=== PATIENT | male | born 1970 | race Two or more races ===

== ENCOUNTER 2018-05-05 08:40 | Inpatient (IN) | payer BC ==
--- NOTE | 2018-05-05 08:48 | PDOC ---
History of Present Illness - General Chief Complaint: Wound Stated Complaint: WOUND Time Seen by Provider: 05/05/18 08:48 History Source: Patient, Spouse Exam Limitations: No Limitations - History of Present Illness Initial Comments: 47 y/o male presenting to [facility] ER via private car complaining of worsening pain , swelling, and redness of right foot. PMH significant for diabetes and chronic wound w/o osteo to R foot. Symptoms began on Tuesday (01 May 2018) after outpatient treatment by [facility] media buyer. Was prescribed Augmentin with concern for possible infection. Developed nausea, vomiting, and diarrhea. Returned to [facility] on Tuesday (03 May 2018) after symptoms worsened and pt developed fever to 102 (measured orally at home). Abx therapy was transition to Cephalexin 500 (QID). Symptoms have continued to worsen with localized spreading of swelling and redness. Pt reports noticing weeping from toes. Denies trauma or puncture to R foot, syncope, streaking, or urinary symptoms. Endorses headache, episodes of lightheadedness without syncope, nausea, vomiting , diarrhea, decreased appetite. PCP: Dr. Naidu at [facility] Geotechnical Operating Engineer: Dr. Rosas at [facility] Past History - Past Medical History Allergies/Adverse Reactions: Allergies Allergy/AdvReac Type Severity Reaction Status Date / Time No Known Allergies Allergy Verified 05/05/18 08:42 Home Medications: Ambulatory Orders Metoprolol Succinate [Toprol Xl -] 100 mg PO DAILY 10/25/14 Atorvastatin Calcium 80 mg PO HS 05/05/18 Cephalexin [Keflex] 500 mg PO QID 05/05/18 Hydrochlorothiazide [Hctz -] 25 mg PO DAILY 05/05/18 Nifedipine [Adalat cc] 60 mg PO DAILY 05/05/18 Olmesartan Medoxomil 40 mg PO DAILY 05/05/18 metFORMIN HCL [Metformin HCl] 1,000 mg PO BID 05/05/18 COPD: No Diabetes: Yes (insulin and po) HTN: Yes Hypercholesterolemia: Yes Comment:: - Diabetes - CKD of unknown staging - HTN - HCL - CAD - Surgical History Appendectomy: Yes Comments:: Left shoulder repair, Oct 2017. Denies recent hospitalizations. - Immunization History Immunization Up to Date: (flu 2013-) - Suicide/Smoking/Psychosocial Hx Smoking History: Never smoked Hx Alcohol Use: No Substance Use Type: None Review of Systems - Review of Systems Able to Perform ROS?: Yes Is the patient limited Belgian proficient: No Constitutional: Yes: Chills, Diaphoresis, Fever, Loss of Appetite, Weakness HEENTM: No: Recent change in vision, Difficulty Swallowing Respiratory: No: Shortness of Breath Cardiac (ROS): Yes: Lightheadedness. No: Chest Pain, Irregular Heart Rate, Syncope ABD/GI: Yes: Diarrhea, Nausea, Poor Appetite, Poor Fluid Intake, Vomiting, Abdominal cramping. No: Rectal Bleeding, Tarry Stools : No: Burning, Dysuria, Discharge, Frequency, Hematuria Integumentary: Yes: Erythema Neurological: Yes: Headache Endocrine: No: Increased Urine Hematologic/Lymphatic: No: Lymph Node Abnormalities *Physical Exam - Vital Signs Last Vital Signs Temp Pulse Resp BP Pulse Ox 100.2 F H 107 H 18 140/73 98 05/05/18 08:42 05/05/18 08:42 05/05/18 08:42 05/05/18 08:42 05/05/18 08:42 - Physical Exam Comments: Constitutional: Well-developed, well-nourished male in no acute distress. Found semi-fowlers in hospital bed. Alert and oriented x4. Answered all questions appropriately and completely. Speech was non-labored, non-pressured. Head: normocephalic. ENT: Sclerae white. Conjunctiva moist and not injected. Hearing grossly intact. No nasal discharge. Oral cavity and pharynx normal. No inflammation, swelling, exudate, or lesions. Teeth and gingiva in good general condition Neck: Supple, trachea is midline. No JVD. Cardiovascular:Tachycardic rate with regular rhythm. No murmur, rubs, clicks, or gallops. Peripheral pulses: Radial pulses full Respiratory: Equal chest rise and fall. Clear to auscultation bilaterally. No stridor, no wheezing, no rhonchi. Gastrointestinal: abdomen is soft, non-tender, non-distended. Neuro: Alert and oriented. Moving all four extremities spontaneously. Psych: Affect: appropriate. Mood: normal. Ext: R foot: dorsum is erythematous, edematous, hot to touch, and subjectively tender to palpation. Edema continues to just below the knee. Breakdown of skin in all webbing spaces without obvious ulceration or invasion to bone. L foot: grossly intact. Dry, flaking skin noted on both lower extremities. ED Treatment Course - LABORATORY CBC & Chemistry Diagram: 05/05/18 09:20 05/05/18 09:56 Medical Decision Making - Medical Decision Making 47 y/o diabetic male complaining of one week of worsening pain, erythema, edema , and weeping of right foot. Reported fever at home to 102. H/o wound to right foot; followed by podiatry, last seen on Tuesday. Trailled outpatient augmentin ( D/Chencho on Tuesday at day 2) and cephalexin (day 3 today) without improvement or slowing of symptoms. Temp 100.2 orally on arrival. Tachycardic with mild hypertension. PE revealing of erythema, edema, pain, and temperature to right foot dorsum extending to ankle. No streaking. Concern for localized cellulitis. Considering osteomyelitis despite obvious communication to ostium given history of reported chronic infection of foot. Will obtain plain film radiographs of extremity to further evaluate. Low suspicion for septicemia but will obtain blood cultures given fever and tachycardia. Will obtain CBC, CMP, coags, troponin, and lactate. Initied sepsis order set. Initiated broadspectrum abx therapy with Vanc and Zosyn with concern for diabetic foot wound. NS, Tylenol, and zofran for symptom relief. Reviewed nursing notes and prior visit documentation. 09:50 PT/INR, Troponin, and CMP hemolyzed. Reordered. 10:12 Leukocytosis to 17.2. Lactate not elevated. Will cancel repeat. Noted total calcium of 7.3. Corrected for hypoalbuminemia to normal range. 11:09 Telephone consult with PCP, Dr. Naidu at [facility]. Reports pts last creatine was 1.6 in (03 May 2018), and has been trending up from 1.4 in January 2018 BUN has remained normal. Last A1C was 9.2 in January 2018. Stated she has experienced trouble with patient compliance without medical therapy. Was unable to give details on both previous clinic visits this week as the notes were not completed. Low suspicion for DANILO given previous labs. CXR is unremarkable for acute cardiopulmonary process. Three view plain films of R foot revealing of swelling, calcaneal spurring, and angulated toes without blastic or lytic lesions. Low suspicion for osteomyelitis. Will admit pt with concern for diabetic foot wound likely cellulitis. Pt meets Sepsis criteria with WBC 17, tachycardia, and suspected source of infection. Microblog sent to [facility] at 11:09. Telephone consult with admitting team. Agree to accept pt under Dr. Irwin. Discussed results and plan for admission with patient and patients . Both expressed verbal understanding and agreement. *DC/Admit/Observation/Transfer Diagnosis at time of Disposition: Diabetic foot infection, Cellulitis in diabetic foot, Tachycardia determined by examination of pulse Sepsis Qualifiers: Sepsis type: sepsis due to unspecified organism Qualified Code(s): A41.9 - Sepsis, unspecified organism - Discharge Dispostion Condition at time of disposition: Fair - Referrals Referrals: Joseline Naidu MD [Primary Care Provider] - - Patient Instructions - Post Discharge Activity
[2018-05-05 08:53] VITALS: BMI 42.4
[2018-05-05] MEDS ORDERED: VANCOMYCIN 1,500 MG in DEXTROSE 5%-WATER - 250 ML IVPB ONE ×2 (09:11→09:45)
[2018-05-05] MEDS ORDERED: PIPERACILLIN/TAZOB 4.5 GM 4.5 GM in DEXTROSE 5%-WATER 100 ML IVPB ONE (09:11)
[2018-05-05] MEDS ORDERED: PIPERACILLIN/TAZOB 4.5 GM 4.5 GM/100 ML BAG IVPB ONE (09:17)
[2018-05-05] MEDS ORDERED: ACETAMINOPHEN 1000 MG/100 ML VIAL (NON FORMULARY) IVPB ONE (09:24)
[2018-05-05] MEDS ORDERED: SODIUM CHLORIDE 0.9% 500 ML INFUS.BAG IV ONE (09:24)
[2018-05-05] MEDS ORDERED: ACETAMINOPHEN INJECTION 100 ML IVPB ONE (09:29)
[2018-05-05] MEDS ORDERED: ONDANSETRON 4 MG/2 ML VIAL IVPUSH ONE (09:29)
[2018-05-05] MEDS ORDERED: ONDANSETRON 4 MG/2 ML VIAL ONE (09:31)
[2018-05-05 09:33] LABS: BASO % 0.6 % (0-2.0); EOS % 0.1 % (0-4.5); HEMATOCRIT 31.5 % (35.4-49); HEMOGLOBIN 10.4 GM/dL (11.7-16.9); MCH 26.8 pg (25.7-33.7); MCHC 33.2 g/dl (32.0-35.9); MEAN CELL VOLUME 80.7 fl (80-96); MONO % 11.3 % (3.8-10.2); PLATELET COUNT 235 K/MM3 (134-434); RDW 13.3 % (11.9-15.9); WHITE BLOOD COUNT 17.2 K/mm3 (4.0-10.0)
--- NOTE | 2018-05-05 09:39 | PDOC ---
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 The patient states he first noticed symptoms on Tuesday after outpatient treatment with [facility] folder machine, Dr. Rosas, and was prescribed Augmentin for possible infection of the right foot. Patient states he developed vomiting, nausea and diarrhea and returned to [facility] 2 days ago for evaluation of the right foot for symptoms worsened with a fever of 102. Patient was prescribed Cephalexin 500 (QID). The patient complains symptoms have continued to worsen today with localized spreading of swelling and redness accompanied with weeping from toes. The patient denies numbness and tingling. Denies any trauma to the the right foot.The patient denies chest pain, shortness of breath, headache and dizziness. Denies dysuria, frequency, urgency and hematuria. Allergies: NKDA Past surgical history: Appendectomy Social history: No reported PCP: Joseline Naidu Documentation prepared by Clifton Jutsin, acting as medical office scheduler for Noah Parker MD. - Physicial Exam PE: 05/05/18 10:27 General Appearance: No acute distress, well nourished, well developed Head: Atraumatic Cardiac: Regular rate and rhythm, no murmurs, no rubs, no gallops Lungs: Clear to auscultation bilateral, good air movement bilaterally Abdomen: Soft, nondistended, normal bowel sounds, nontender to palpation Genitourinary: Rectal: Exam deferred Extremities: Full range of motion to all extremities, no cyanosis, clubbing, or edema Skin: +Swollen right calf, cellulitis extended to the ankle and skin break down to the right 2nd and 3rd toe with purulent discharge Neuro: AOX3; Cranial Nerves 2-12 grossly intact, Strength intact to all extremities, Sensation intact to all extremities. Psych: Normal mood, normal affect <Clifton Justin - Last Filed: 05/05/18 10:30> - Resident Resident Name: Onel Posada - ED Attending Attestation I have performed the following: I have examined & evaluated the patient, The case was reviewed & discussed with the resident, I agree w/resident's findings & plan, Exceptions are as noted - Medical Decision Making 05/05/18 15:29 Diabetic foot cellulitis. Failed outpatient therapy. Fever elevated white blood cell count. Lactic within normal limits. Patient meets sepsis criteria but not severe sepsis Patient covered with Patria given diabetes will be admitted to the hospital for further management. <Noah Parker - Last Filed: 05/05/18 15:29>
[2018-05-05] MEDS ORDERED: VANCOMYCIN 1,500 MG in DEXTROSE 5%-WATER - 500 ML IVPB ONE (09:45)
[2018-05-05 10:31] LABS: ALBUMIN 2.4 g/dl (3.4-5.0); ANION GAP 12 (8-16); BILIRUBIN,TOTAL 0.6 mg/dL (0.2-1.0); BLOOD UREA NITROGEN 17 mg/dL (7-18); CALCIUM 7.3 mg/dL (8.5-10.1); CHLORIDE 101 mmol/L (98-107); CO2 25 mmol/L (21-32); CREATININE 1.7 mg/dL (0.7-1.3); GLUCOSE,RANDOM 197 mg/dL (74-106); POTASSIUM 3.4 mmol/L (3.5-5.1); SGOT/AST 55 U/L (15-37); SGPT/ALT 48 U/L (12-78); SODIUM 138 mmol/L (136-145); TOT PROT 5.9 g/dl (6.4-8.2)
[2018-05-05 10:33] LABS: INR 1.13 (0.82-1.09); PROTHROMBIN TIME (PATIENT) 12.8 SEC (9.7-13.0)
[2018-05-05 10:35] LABS: ALK PHOS 123 U/L (45-117)
[2018-05-05 11:41] LABS: URINE APPEARANCE CLOUDY; URINE BILIRUBIN NEGATIVE (<2.0 mg/dL); URINE COLOR DKYELLOW; URINE GLUCOSE (UA) 1+ (NEGATIVE); URINE KETONE NEGATIVE (NEGATIVE); URINE LEUK ESTERASE NEGATIVE (NEGATIVE); URINE NITRITE NEGATIVE (NEGATIVE); URINE UROBILINOGEN NEGATIVE mg/dL (0.2-1.0)
[2018-05-05 11:45] LABS: URINE PROTEIN 3+ (NEGATIVE)
[2018-05-05 11:56] LABS: URIC ACID CRYSTALS RARE /hpf (NONE SEEN); YEAST MODERATE
[2018-05-05] MEDS ORDERED: POTASSIUM CHLORIDE ORAL LIQUID 20 MEQ/15 ML PO ONE (11:57)
[2018-05-05] MEDS ORDERED: POTASSIUM CHLORIDE TABS 20 MEQ TABLET.ER (FP) PO ONE (12:34)
--- NOTE | 2018-05-05 12:46 | HP ---
Admitting History and Physical - Admission Chief Complaint: R foot swelling, drainage History of Present Illness: This is a 47 year old male with pmhx of htn, hld, dm II presented to the ED R foot swelling, redness, and drainage from wound. 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 That afternoon he followed up with his cell installer who said it looked fine and prescribed augmentin if worsened. On Tuesday pt started having fevers and chills, by Tuesday pt saw his GP and switched abx to keflex. His foot was not improving and continued to have subjective fevers ~ 102 and decide to come to the ED. Currently, denies cp, sob, fever, chills, abdominal pain. History Source: Patient Limitations to Obtaining History: No Limitations - Past Medical History Cardiovascular: Yes: HTN, Hyperlipdemia Renal/: Yes: Renal Inusuff Endocrine: Yes: Diabetes Mellitus - Past Surgical History Past Surgical History: Yes: Arthrosocopy (L shoulder 3 months ago) - Smoking History Smoking history: Never smoked - Alcohol/Substance Use Hx Alcohol Use: No Home Medications - Allergies Allergies/Adverse Reactions: Allergies Allergy/AdvReac Type Severity Reaction Status Date / Time No Known Allergies Allergy Verified 05/05/18 08:42 - Home Medications Home Medications: Ambulatory Orders Metoprolol Succinate [Toprol Xl -] 100 mg PO DAILY 10/25/14 Atorvastatin Calcium 80 mg PO HS 05/05/18 Cephalexin [Keflex] 500 mg PO QID 05/05/18 Hydrochlorothiazide [Hctz -] 25 mg PO DAILY 05/05/18 Nifedipine [Adalat cc] 60 mg PO DAILY 05/05/18 Olmesartan Medoxomil 40 mg PO DAILY 05/05/18 metFORMIN HCL [Metformin HCl] 1,000 mg PO BID 05/05/18 Review of Systems - Review of Systems Constitutional: reports: Chills, Fever Eyes: reports: No Symptoms HENT: reports: No Symptoms Neck: reports: No Symptoms Cardiovascular: reports: No Symptoms Respiratory: reports: No Symptoms Gastrointestinal: reports: No Symptoms Genitourinary: reports: No Symptoms Musculoskeletal: reports: No Symptoms Integumentary: reports: Erythema (r foot), Wound Neurological: reports: No Symptoms Endocrine: reports: No Symptoms Hematology/Lymphatic: reports: No Symptoms Psychiatric: reports: No Symptoms Physical Examination Vital Signs: Vital Signs Temperature 100.2 F H 05/05/18 08:42 Pulse Rate 107 H 05/05/18 08:42 Respiratory Rate 18 05/05/18 08:42 Blood Pressure 140/73 05/05/18 08:42 O2 Sat by Pulse Oximetry (%) 98 05/05/18 08:42 Constitutional: Yes: No Distress Eyes: Yes: Conjunctiva Clear HENT: Yes: Atraumatic Cardiovascular: Yes: Regular Rate and Rhythm, S1, S2 Respiratory: Yes: Regular, CTA Bilaterally Gastrointestinal: Yes: Normal Bowel Sounds, Soft, Abdomen, Obese Renal/: Yes: WNL Musculoskeletal: Yes: WNL Extremities: Yes: Other (R food wound dorsal opening draining in between 2, 3 toe erythema, tender to palpation dorsal region, plantar callus closed) Edema: Yes Edema: RLE: 2+ Integumentary: Yes: Erythema, Skin Tear Wound/Incision: Yes: Open to air, Draining Neurological: Yes: Alert, Oriented, Cran Nerves II-XII Intact ...Motor Strength: WNL Psychiatric: Yes: Alert, Oriented Labs: CBC, BMP 05/05/18 09:20 05/05/18 09:56 Imaging - Results X-ray: Report Reviewed Problem List - Problems (1) Cellulitis in diabetic foot Code(s): E11.628 - TYPE 2 DIABETES MELLITUS WITH OTHER SKIN COMPLICATIONS; L03.119 - CELLULITIS OF UNSPECIFIED PART OF LIMB (2) Diabetic foot infection Code(s): E11.628 - TYPE 2 DIABETES MELLITUS WITH OTHER SKIN COMPLICATIONS; L08.9 - LOCAL INFECTION OF THE SKIN AND SUBCUTANEOUS TISSUE, UNSP (3) Sepsis Code(s): A41.9 - SEPSIS, UNSPECIFIED ORGANISM Qualifiers: Sepsis type: sepsis due to unspecified organism Qualified Code(s): A41.9 - Sepsis, unspecified organism Assessment/Plan Assessment: 47 year old male admitted with diabetic foot ulcer and R foot cellulitis Plan: 1. Sepsis due to R foot diabetic foot wound/ulcer - Vanco, zosyn given in ED - Continue zosyn, vanco - Culture of R foot drainage - Obtain RLE doppler r/o dvt, pt states swelling occurred before infection - ID and podiatry consulted 2. Lactic acidosis - Give 1L bolus now - Check lactic acid in 4rs 3. CKD, proteinuria - Pt recalls baseline cr 1.5, has not had a work up - Hold po antidiabetics, HCTZ - Kidney/bladder us ordered - Send urine studies, urine/extrusion press operator ratio - Renal consulted 4. DM II - Hold po meds - Start ISS, BGM, ACHS 5. HTN - Continue toprol xl 100mg daily - Continue Nifedipine 60mg daily - Continue Diovan (switched from home olmesartan) - Hold HCTZ 6. DVT ppx - Heparin sq Visit type - Emergency Visit Emergency Visit: Yes ED Registration Date: 05/05/18 Care time: The patient presented to the Emergency Department on the above date and was hospitalized for further evaluation of their emergent condition. - New Patient This patient is new to me today: Yes Date on this admission: 05/05/18 - Critical Care Critical Care patient: No Hospitalist Screening - Colonoscopy Questionnaire Colonoscopy Questionnaire: Colonoscopy Questionnaire - Patient: 50 - 75 years old and never had a screening colonoscopy: Unknown History of colon or rectal polyps, or CA: Unknown History of IBD, Crohn's disease or UC: Unknown History of abdominal radiation therapy as a child: Unknown - Relative: 1 with colon or rectal CA, or polyps at age 60 or younger: Unknown Colon or rectal CA diagnosed at age 45 or younger: Unknown Multiple relatives with colon or rectal CA: Unknown - Outcome: Screening Result: Negative Screen
[2018-05-05] MEDS ORDERED: SODIUM CHLORIDE 1,000 ML IV STA ×2 (13:57→21:37)
[2018-05-05 13:59] LABS: PLATELET ESTIMATE ADEQUATE
--- NOTE | 2018-05-05 14:16 | EKG ---
Test Reason : Blood Pressure : / mmHG Vent. Rate : 094 BPM Atrial Rate : 094 BPM P-R Int : 150 ms QRS Dur : 098 ms QT Int : 344 ms P-R-T Axes : 058 -14 041 degrees QTc Int : 430 ms NORMAL SINUS RHYTHM NORMAL ECG WHEN COMPARED WITH ECG OF 25-FEB-2008 19:52, NO SIGNIFICANT CHANGE WAS FOUND Confirmed by YIN PEPE MD ([id number]) on 05/05/2018 2:16:11 PM Referred By: Confirmed By:YIN PEPE MD
--- NOTE | 2018-05-05 14:44 | CON.NEP ---
Consult Consult Specialty:: Nephrology Reason for Consultation:: Elevated Cr - History of Present Illness Chief Complaint: right foot pain and swelling History of Present Illness: Mr. Downs is a 47 y/o male who presented to [facility] ER with complaints of right foot pain/swelling/tenderness. patient states the pain and swelling started on tuesday and he went to his PCP office who gave him augmentin, which he soon developed n/v/d. [facility] with increasing complaints and his pcp switched to cephalexin. Sitll in pain and with fevers at home he came to the hospital. In the Er labs were notable for a WBC count of 17.2 and a Cr of 1.7. Patient states that he thinks his baseline Cr is around 1.5 but has never seen a social sciences instructor. His U/A was also significant for 3+ protein and 1+glucose and 2+blood. XRAY of the foot shows swelling but no signs of fracture or subluxation, but osteomyelitis cannot be ruled pout without an MRI or bone scan. Currently patient is not having anymore GI symptoms nor is he having any trouble urinating. - History Source History Provided By: Patient - Past Medical History Cardio/Vascular: Yes: HTN, Hyperlipdemia Renal/: Yes: Renal Inusuff Endocrine: Yes: Diabetes Mellitus - Past Surgical History Past Surgical History: Yes: Arthrosocopy (L shoulder 3 months ago) - Alcohol/Substance Use Hx Alcohol Use: No - Smoking History Smoking history: Never smoked - Social History Usual Living Arrangement: With Spouse Place of : [facility] Home Medications - Allergies Allergies/Adverse Reactions: Allergies Allergy/AdvReac Type Severity Reaction Status Date / Time No Known Allergies Allergy Verified 05/05/18 08:42 - Home Medications Home Medications: Ambulatory Orders Metoprolol Succinate [Toprol Xl -] 100 mg PO DAILY 10/25/14 Atorvastatin Calcium 80 mg PO HS 05/05/18 Cephalexin [Keflex] 500 mg PO QID 05/05/18 Hydrochlorothiazide [Hctz -] 25 mg PO DAILY 05/05/18 Nifedipine [Adalat cc] 60 mg PO DAILY 05/05/18 Olmesartan Medoxomil 40 mg PO DAILY 05/05/18 metFORMIN HCL [Metformin HCl] 1,000 mg PO BID 05/05/18 Family Disease History - Family Disease History Family History: Denies Review of Systems - Review of Systems Cardiovascular: denies: Chest Pain, Palpitations Respiratory: denies: SOB Gastrointestinal: denies: Abdominal Pain, Nausea Musculoskeletal: reports: Extremity Pain (right foot pain and tenderness) Nephrology Consult - Height Height: 1.83 m - Weight Weight: 141.974 kg - BMI Body Mass Index (BMI): 42.4 - Lab Results CBC,BMP: CBC, BMP 05/05/18 09:20 05/05/18 09:56 Anion Gap: Anion Gap Anion Gap 12 (8-16) 05/05/18 09:56 - Physical Examination Vital Signs: Vital Signs Temperature 99.7 F H 05/05/18 13:01 Pulse Rate 95 H 05/05/18 13:01 Respiratory Rate 18 05/05/18 13:01 Blood Pressure 115/67 05/05/18 13:01 O2 Sat by Pulse Oximetry (%) 98 05/05/18 08:42 Constitutional: Yes: No Distress Cardiovascular: Yes: Regular Rate and Rhythm, S1, S2 Respiratory: Yes: CTA Bilaterally Gastrointestinal: Yes: Normal Bowel Sounds, Soft. No: Tenderness Musculoskeletal: Yes: Other (right foot pain/tenderness to palpation and erythematous) Edema: Yes Edema: LLE: Trace, RLE: Trace Neurological: Yes: Alert Psychiatric: Yes: Alert Problem List - Problems (1) CKD (chronic kidney disease) Code(s): N18.9 - CHRONIC KIDNEY DISEASE, UNSPECIFIED (2) Cellulitis in diabetic foot Code(s): E11.628 - TYPE 2 DIABETES MELLITUS WITH OTHER SKIN COMPLICATIONS; L03.119 - CELLULITIS OF UNSPECIFIED PART OF LIMB Assessment/Plan -labs in AM -renal workup in progress -repeat U/A -follow urine protein/cr ratio -renally dose antibiotics -attempt to get records from PCP
--- NOTE | 2018-05-05 15:38 | PN ---
Teaching Attending Note Name of Resident: Ghazal Lima (Nephrology) ATTENDING PHYSICIAN STATEMENT I saw and evaluated the patient. I reviewed the resident's note and discussed the case with the resident. I agree with the resident's findings and plan as documented. Nephrology Pt is a 47 year old male with pmhx of DM, HTN, and obesity who presents to the ER with right foot swelling and pain. He was on augmentin for an infection but developed GI symptoms. The abx were changed to cephalexin. Wound continued to worsen and he came to ER for further care. He was found to have elevated creatinine and I was called to evaluate him. He says he is awake that he has proteinuria and elevated posting clerk (last outpt was 1.5) but has not followed or seen a detective homicide squad. He does use nsaids regularly. He denies shortness of breath. PMhx ckd dm htn nkda ros foot pain family hx non contrib soc hx neg Current Medications Generic Name Dose Route Start Last Admin Trade Name Freq PRN Reason Stop Dose Admin Acetaminophen 650 mg 05/05/18 13:02 Tylenol - PO Q4H PRN PAIN LEVEL 1 - 3 Atorvastatin Calcium 80 mg 05/05/18 22:00 Lipitor - PO HS NICKI Heparin Sodium (Porcine) 5,000 unit 05/05/18 22:00 Heparin - SQ TID NICKI Piperacillin Sod/Tazobactam 50 mls @ 100 mls/hr 05/05/18 18:00 Sod 3.375 gm/ Dextrose IVPB Q8H-IV NICKI Protocol Piperacillin Sod/Tazobactam 50 mls @ 100 mls/hr 05/05/18 18:00 Sod 3.375 gm/ Dextrose IVPB 05/06/18 02:29 Q8H-IV NICKI Protocol Insulin Aspart 1 vial 05/05/18 16:30 Novolog Vial Sliding Scale - SQ ACHS NICKI Protocol Metoprolol Succinate 100 mg 05/06/18 10:00 Toprol Xl - PO DAILY NICKI Nifedipine 60 mg 05/06/18 10:00 Procardia Xl - PO DAILY NICKI Laboratory Tests 05/05/18 05/05/18 05/05/18 09:20 09:56 09:56 WBC 17.2 H Hgb 10.4 L INR 1.13 Sodium 138 Potassium 3.4 L Chloride 101 Creatinine 1.7 H Creat Clearance w eGFR 43.05 Random Glucose 197 H Hemoglobin A1c % Lactic Acid Calcium 7.3 L Albumin 2.4 L Urine Protein Urine Blood 05/05/18 05/05/18 05/05/18 10:55 12:50 13:05 WBC Hgb INR Sodium Potassium Chloride Creatinine Creat Clearance w eGFR Random Glucose Hemoglobin A1c % 10.5 H Lactic Acid 2.1 H Calcium Albumin Urine Protein 3+ H Urine Blood 2+ H Last Vital Signs Temp Pulse Resp BP Pulse Ox 99.7 F H 95 H 18 115/67 98 05/05/18 13:01 05/05/18 13:01 05/05/18 13:01 05/05/18 13:01 05/05/18 08:42 cardio s1s2 reg pulm clear GI obese, bs positive ext right leg neuro awake and alert skin erythema right foot circ pos pulses Impression 1. CKD 2. proteinuria 3. microscopic hematuria 4. HTN 5. DM 6. diabetic retinopathy 7. cataracts 8. cellulitis 9. CAD Plan - check prot to posting clerk ration - repeat labs in am - will need ckd workup and outpt follow up - restart olmestartan - monitor bp - renal dose meds - check kidney and bladder ultrasound - discussed plan at length with pt - discussed with medical team - will need better glucose control, a1c is elevated
--- NOTE | 2018-05-05 15:43 | PN ---
Progress Note (short form) - Note Progress Note: ID Consult dictated Cellulitis R foot Probable chemical burn R foot Fever/ leukocytosis R/O sepsis Diabetes/ Diabetic peripheral neuropathy Azotemia Await c/s Empiric vancomycin/ zosyn Podiatry evaluation
--- NOTE | 2018-05-05 16:44 | CONS ---
DATE OF CONSULTATION: DATE OF DICTATION: 05/05/2018 INFECTIOUS DISEASE CONSULTATION HISTORY OF PRESENT ILLNESS: The patient is a 47-year-old diabetic male who is evaluated for cellulitis of the right foot. The patient states that he was working on Tuesday, May 01, 2018, when he accidentally spilled a caustic cleaning substance on his right foot. The liquid penetrated his sneaker. Because of his diabetic peripheral neuropathy he did not feel any pain. He had presented to his physician on Tuesday after work and had a normal exam. Subsequent to that he developed worsening pain, erythema, and swelling of the right foot. He was seen in followup and was prescribed Augmentin for presumed cellulitis. Despite that, he had worsening erythema, warmth and swelling. Cephalexin was substituted. He now presents with worsening pain, swelling, and erythema of the right foot. He reports subjective fever at home. Denies any shaking chills. His course has been complicated by nausea, vomiting, and diarrhea, fever to 102 and weepage of fluid from between his toes. He presented to the emergency room where he was noted to be febrile and had an elevated white blood cell count. He has a history of diabetic foot infections in the past, was hospitalized years ago with a foot infection, denies history of osteomyelitis, no history of MRSA. PAST MEDICAL HISTORY: Positive for diabetes mellitus, hypertension, chronic kidney disease, coronary artery disease, hyperlipidemia. PAST SURGICAL HISTORY: Status post appendectomy. ALLERGIES: No known allergies. MEDICATION: Metformin, Toprol, Lipitor, Keflex, hydrochlorothiazide, Adalat. SOCIAL HISTORY: Resides at home with his significant other. Nonsmoker, nondrinker. SYSTEMS REVIEW: Neurologic: Positive for peripheral neuropathy. Cardiac: Negative for chest pain or palpitations. Respiratory: Negative for cough or sputum production. Gastrointestinal: Positive nausea, vomiting or diarrhea. Genitourinary: Negative for urinary tract symptoms. LABORATORY DATA: White count 17.2, 74 neutrophils, 2 bands, 14 lymphocytes, 11 monocytes. Hematocrit 31.5, platelet count 235, BUN 17, creatinine 1.7. AST 55, alkaline phosphatase 123. Urinalysis less than 1 white cell. Chest x-ray negative for acute infiltrate. X-ray of the right foot negative for fracture or dislocation. PHYSICAL EXAMINATION: General: He is awake and alert, seated in bed, not acutely toxic appearing. in no acute distress. Vital signs: Temperature 99.7, T-max 100.2, blood pressure 115/67, pulse 95 regular, respirations 18 per minute. HEENT: Sclerae anicteric. Cardiovascular: Heart sounds S1, S2. Lungs: Clear. Abdomen: Obese, soft, nontender. Extremities: Examination of the right lower extremity, there is diffuse swelling of the left foot. There is shiny confluence, erythema, and warmth present on the dorsal aspect of the foot from the base of the toes to the area of the ankle. He appears to have superficial ulcerations between the toes with serous drainage noted. No crepitus or fluctuance. No lymphangitic streaking. IMPRESSION: 1. Cellulitis of the right foot. 2. Probable chemical burn of the right foot. 3. Fever, leukocytosis, possible sepsis secondary to skin source. 4. Diabetes/diabetic peripheral neuropathy. 5. Azotemia. Await cultures. Empiric vancomycin and Zosyn adjusted for renal insufficiency. Podiatry evaluation. Thank you for the kind referral. KIRAN ROBLES M.D. [id number]
[2018-05-05] MEDS ORDERED: PIPERACILLIN/TAZOBACTAM 3.375 GM VIAL IVPB ONE (16:52)
[2018-05-05] MEDS ORDERED: DEXTROSE 5%-WATER - 50 ML IVPB ONE (16:53)
[2018-05-05] MEDS: ACETAMINOPHEN 325 MG TABLET (FP) PO PRN ×2 (16:55→21:49)
[2018-05-05] MEDS: INSULIN SLIDING SCALE (NOVOLOG) 1 VIAL SQ SCH ×2 (16:59→21:59)
[2018-05-05] MEDS: PIPERACILLIN/TAZOB 3.375 GM 3.375 GM in DEXTROSE 5%-WATER - 50 ML IVPB SCH (17:02)
[2018-05-05] MEDS ORDERED: PIPERACILLIN/TAZOB 3.375 GM 3.375 GM in DEXTROSE 5%-WATER - 50 ML IVPB SCH (18:00)
[2018-05-05] MEDS ORDERED: MAG HYDROX/AL HYDROX/SIMETH 30 ML UNIT-DOSE CUP PO ONE (21:45)
[2018-05-05] MEDS: HEPARIN NA (PORCINE) 5,000 UNITS/ML 1ML VIAL SQ SCH (21:51)
[2018-05-05] MEDS: ATORVASTATIN CA 80 MG TABLET (FP) PO SCH (21:52)
[2018-05-05] MEDS ORDERED: INSULIN (NOVOLOG) ASPART 100 UNITS/ML 10ML VIAL ONE (21:59)
[2018-05-05] MEDS ORDERED: INSULIN (LEVEMIR) 100 UNITS/ML UNITS SQ SCH (22:00)
[2018-05-06] MEDS ORDERED: DEXTROSE 5%-WATER - 50 ML IVPB ONE ×3 (01:24→16:45)
[2018-05-06] MEDS ORDERED: PIPERACILLIN/TAZOBACTAM 3.375 GM VIAL IVPB ONE ×3 (01:24→16:45)
[2018-05-06] MEDS: PIPERACILLIN/TAZOB 3.375 GM 3.375 GM in DEXTROSE 5%-WATER - 50 ML IVPB SCH ×3 (01:57→17:25)
[2018-05-06 05:12] LABS: URINE APPEARANCE SLCLOUDY; URINE BILIRUBIN NEGATIVE (<2.0 mg/dL); URINE COLOR YELLOW; URINE GLUCOSE (UA) 2+ (NEGATIVE); URINE KETONE NEGATIVE (NEGATIVE); URINE LEUK ESTERASE NEGATIVE (NEGATIVE); URINE NITRITE NEGATIVE (NEGATIVE); URINE UROBILINOGEN NEGATIVE mg/dL (0.2-1.0)
[2018-05-06 05:14] LABS: URINE PROTEIN 2+ (NEGATIVE)
[2018-05-06 05:15] LABS: EPI CELLS RARE /HPF (FEW); URINE MUCUS RARE
[2018-05-06] MEDS: ACETAMINOPHEN 325 MG TABLET (FP) PO PRN ×2 (06:21→14:20)
[2018-05-06] MEDS: HEPARIN NA (PORCINE) 5,000 UNITS/ML 1ML VIAL SQ SCH ×3 (06:22→21:13)
[2018-05-06] MEDS: INSULIN SLIDING SCALE (NOVOLOG) 1 VIAL SQ SCH ×4 (06:23→21:11)
[2018-05-06 07:56] LABS: BASO % 0.2 % (0-2.0); EOS % 0.2 % (0-4.5); HEMATOCRIT 26.8 % (35.4-49); HEMOGLOBIN 9.1 GM/dL (11.7-16.9); LYMPH % 13.2 % (8-40); MCH 27.3 pg (25.7-33.7); MEAN CELL VOLUME 80.1 fl (80-96); MEAN PLT VOLUME 7.7 fl (7.5-11.1); MONO % 9.7 % (3.8-10.2); NEUT % 76.7 % (42.8-82.8); PLATELET COUNT 217 K/MM3 (134-434); RBC 3.35 M/mm3 (4.00-5.60); RDW 13.3 % (11.9-15.9); WHITE BLOOD COUNT 11.4 K/mm3 (4.0-10.0)
--- NOTE | 2018-05-06 08:20 | CONSULT ---
Consult - text type - Consultation Consultation Note: Podiatry Consultation: 47 year old diabetic M presents with R foot cellulitis. 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 Patient developed increased redness/swelling subsequent to injury. Failed course of PO abx. Reports subjective chills and fevers at home. Currently low grade temp 99F. PMHx: DM, HTN, HLP Meds: noted ALL: NKMA ZEENAT: R foot: pedal pulses palpable, TG warm-warmer, CFT brisk to all toes. There is fixed cellulitis to the level of dorsal midfoot. There is some blistering noted between the second and third digits with no deep probing, maceration present, underlying granular tissue, no purulence, no fluctuance, no soft tissue crepitus R foot Xr: no bony pathology WBC: 11.4 Cultures: pending Imp: 47 year old DM M with R foot cellulitis 1. IV abx per ID 2. Recommend MRI to evaluate further pathology 3. Bactroban to 2nd interspace 4. Leg elevation 5. Will follow. Thank you for the consultation. Willi Milian DPM
[2018-05-06 08:26] LABS: ALBUMIN 2.2 g/dl (3.4-5.0); ALK PHOS 156 U/L (45-117); ANION GAP 9 (8-16); BILIRUBIN,TOTAL 0.3 mg/dL (0.2-1.0); BLOOD UREA NITROGEN 19 mg/dL (7-18); CALCIUM 7.3 mg/dL (8.5-10.1); CHLORIDE 103 mmol/L (98-107); CO2 26 mmol/L (21-32); CREATININE 2.1 mg/dL (0.7-1.3); GLUCOSE,RANDOM 261 mg/dL (74-106); MAGNESIUM 1.8 mg/dL (1.8-2.4); POTASSIUM 3.6 mmol/L (3.5-5.1); SGOT/AST 84 U/L (15-37); SGPT/ALT 85 U/L (12-78); SODIUM 138 mmol/L (136-145); TOT PROT 5.9 g/dl (6.4-8.2)
[2018-05-06] MEDS: NIFEdipine E.R 60 MG TABLET (UD) PO SCH (09:16)
--- NOTE | 2018-05-06 09:47 | PN ---
Physical Exam: SUBJECTIVE: Patient seen and examined at the bedside. OBJECTIVE: creat bumped up, will hold diovan pt uses cpap at home bgms elevated Vital Signs Period Temp Pulse Resp BP Sys/Freitas Pulse Ox Last 24 Hr 98.6 F-99.7 F 90-105 18-20 115-158/55-90 98-99 GENERAL: The patient is awake, alert, and fully oriented, in no acute distress. HEAD: Normal with no signs of trauma. EYES: PERRL, extraocular movements intact, sclera anicteric, conjunctiva clear. No ptosis. ENT: Ears normal, nares patent, oropharynx clear without exudates, moist mucous membranes. NECK: Trachea midline, full range of motion, supple. LUNGS: Breath sounds equal, clear to auscultation bilaterally HEART: Regular rate and rhythm, ABDOMEN: large obese abdomen EXTREMITIES: right foot cellulitis NEUROLOGICAL: Normal speech, gait not observed. PSYCH: Normal mood, normal affect. Laboratory Results - last 24 hr 05/05/18 05/05/18 05/05/18 09:20 09:20 09:56 WBC RBC Hgb Hct MCV MCH MCHC RDW Plt Count MPV Absolute Neuts (auto) Total Counted 100 Neutrophils % Neutrophils % (Manual) 68.0 Band Neutrophils % 2.0 Lymphocytes % Lymphocytes % (Manual) 21.0 Monocytes % Monocytes % (Manual) 9 Eosinophils % Basophils % Nucleated RBC % Platelet Estimate Adequate PT with INR 12.80 INR 1.13 Sodium Potassium Chloride Carbon Dioxide Anion Gap BUN Creatinine Creat Clearance w eGFR POC Glucometer Random Glucose Hemoglobin A1c % Lactic Acid 1.7 Calcium Phosphorus Magnesium Total Bilirubin AST ALT Alkaline Phosphatase Creatine Kinase Creatine Kinase Index CK-MB (CK-2) Troponin I Total Protein Albumin Urine Color Urine Appearance Urine pH Ur Specific [place] Urine Protein Urine Glucose (UA) Urine Ketones Urine Blood Urine Nitrite Urine Bilirubin Urine Urobilinogen Ur Leukocyte Esterase Urine WBC (Auto) Urine RBC (Auto) Ur Epithelial Cells Uric Acid Crystals Urine Mucus Urine Yeast 05/05/18 05/05/18 05/05/18 09:56 10:55 12:38 WBC RBC Hgb Hct MCV MCH MCHC RDW Plt Count MPV Absolute Neuts (auto) Total Counted Neutrophils % Neutrophils % (Manual) Band Neutrophils % Lymphocytes % Lymphocytes % (Manual) Monocytes % Monocytes % (Manual) Eosinophils % Basophils % Nucleated RBC % Platelet Estimate PT with INR INR Sodium 138 Potassium 3.4 L Chloride 101 Carbon Dioxide 25 Anion Gap 12 BUN 17 Creatinine 1.7 H Creat Clearance w eGFR 43.05 POC Glucometer [phone] Random Glucose 197 H Hemoglobin A1c % Lactic Acid Calcium 7.3 L Phosphorus Magnesium Total Bilirubin 0.6 AST 55 H ALT 48 Alkaline Phosphatase 123 H Creatine Kinase 273 Creatine Kinase Index 0.2 CK-MB (CK-2) 0.59 Troponin I < 0.02 Total Protein 5.9 L Albumin 2.4 L Urine Color Dkyellow Urine Appearance Cloudy Urine pH 5.0 Ur Specific [place] 1.026 Urine Protein 3+ H Urine Glucose (UA) 1+ H Urine Ketones Negative Urine Blood 2+ H Urine Nitrite Negative Urine Bilirubin Negative Urine Urobilinogen Negative Ur Leukocyte Esterase Negative Urine WBC (Auto) <1 Urine RBC (Auto) 33 Ur Epithelial Cells Uric Acid Crystals Rare Urine Mucus Urine Yeast Moderate 05/05/18 05/05/18 05/05/18 12:50 13:05 16:59 WBC RBC Hgb Hct MCV MCH MCHC RDW Plt Count MPV Absolute Neuts (auto) Total Counted Neutrophils % Neutrophils % (Manual) Band Neutrophils % Lymphocytes % Lymphocytes % (Manual) Monocytes % Monocytes % (Manual) Eosinophils % Basophils % Nucleated RBC % Platelet Estimate PT with INR INR Sodium Potassium Chloride Carbon Dioxide Anion Gap BUN Creatinine Creat Clearance w eGFR POC Glucometer 331 Random Glucose Hemoglobin A1c % 10.5 H Lactic Acid 2.1 H Calcium Phosphorus Magnesium Total Bilirubin AST ALT Alkaline Phosphatase Creatine Kinase Creatine Kinase Index CK-MB (CK-2) Troponin I Total Protein Albumin Urine Color Urine Appearance Urine pH Ur Specific [place] Urine Protein Urine Glucose (UA) Urine Ketones Urine Blood Urine Nitrite Urine Bilirubin Urine Urobilinogen Ur Leukocyte Esterase Urine WBC (Auto) Urine RBC (Auto) Ur Epithelial Cells Uric Acid Crystals Urine Mucus Urine Yeast 05/05/18 05/05/18 05/06/18 20:30 21:55 02:20 WBC RBC Hgb Hct MCV MCH MCHC RDW Plt Count MPV Absolute Neuts (auto) Total Counted Neutrophils % Neutrophils % (Manual) Band Neutrophils % Lymphocytes % Lymphocytes % (Manual) Monocytes % Monocytes % (Manual) Eosinophils % Basophils % Nucleated RBC % Platelet Estimate PT with INR INR Sodium Potassium Chloride Carbon Dioxide Anion Gap BUN Creatinine Creat Clearance w eGFR POC Glucometer 345 Random Glucose Hemoglobin A1c % Lactic Acid 4.4 H* 2.1 H Calcium Phosphorus Magnesium Total Bilirubin AST ALT Alkaline Phosphatase Creatine Kinase Creatine Kinase Index CK-MB (CK-2) Troponin I Total Protein Albumin Urine Color Urine Appearance Urine pH Ur Specific [place] Urine Protein Urine Glucose (UA) Urine Ketones Urine Blood Urine Nitrite Urine Bilirubin Urine Urobilinogen Ur Leukocyte Esterase Urine WBC (Auto) Urine RBC (Auto) Ur Epithelial Cells Uric Acid Crystals Urine Mucus Urine Yeast 05/06/18 05/06/18 05/06/18 05:00 05:53 06:30 WBC 11.4 H RBC 3.35 L Hgb 9.1 L Hct 26.8 L MCV 80.1 MCH 27.3 MCHC 34.0 RDW 13.3 Plt Count 217 MPV 7.7 Absolute Neuts (auto) 8.7 Total Counted Neutrophils % 76.7 Neutrophils % (Manual) Band Neutrophils % Lymphocytes % 13.2 Lymphocytes % (Manual) Monocytes % 9.7 Monocytes % (Manual) Eosinophils % 0.2 D Basophils % 0.2 Nucleated RBC % 0 Platelet Estimate PT with INR INR Sodium Potassium Chloride Carbon Dioxide Anion Gap BUN Creatinine Creat Clearance w eGFR POC Glucometer 296 Random Glucose Hemoglobin A1c % Lactic Acid Calcium Phosphorus Magnesium Total Bilirubin AST ALT Alkaline Phosphatase Creatine Kinase Creatine Kinase Index CK-MB (CK-2) Troponin I Total Protein Albumin Urine Color Yellow Urine Appearance Slcloudy Urine pH 5.0 Ur Specific [place] 1.011 Urine Protein 2+ H Urine Glucose (UA) 2+ H Urine Ketones Negative Urine Blood 2+ H Urine Nitrite Negative Urine Bilirubin Negative Urine Urobilinogen Negative Ur Leukocyte Esterase Negative Urine WBC (Auto) 3 Urine RBC (Auto) 6 Ur Epithelial Cells Rare Uric Acid Crystals Urine Mucus Rare Urine Yeast 05/06/18 05/06/18 06:30 06:30 WBC RBC Hgb Hct MCV MCH MCHC RDW Plt Count MPV Absolute Neuts (auto) Total Counted Neutrophils % Neutrophils % (Manual) Band Neutrophils % Lymphocytes % Lymphocytes % (Manual) Monocytes % Monocytes % (Manual) Eosinophils % Basophils % Nucleated RBC % Platelet Estimate PT with INR INR Sodium 138 Potassium 3.6 Chloride 103 Carbon Dioxide 26 Anion Gap 9 BUN 19 H Creatinine 2.1 H Creat Clearance w eGFR 33.74 POC Glucometer Random Glucose 261 H D Hemoglobin A1c % Lactic Acid 1.4 Calcium 7.3 L Phosphorus 3.0 Magnesium 1.8 Total Bilirubin 0.3 AST 84 H D ALT 85 H D Alkaline Phosphatase 156 H D Creatine Kinase Creatine Kinase Index CK-MB (CK-2) Troponin I Total Protein 5.9 L Albumin 2.2 L Urine Color Urine Appearance Urine pH Ur Specific [place] Urine Protein Urine Glucose (UA) Urine Ketones Urine Blood Urine Nitrite Urine Bilirubin Urine Urobilinogen Ur Leukocyte Esterase Urine WBC (Auto) Urine RBC (Auto) Ur Epithelial Cells Uric Acid Crystals Urine Mucus Urine Yeast Active Medications Generic Name Dose Route Start Last Admin Trade Name Freq PRN Reason Stop Dose Admin Acetaminophen 650 mg 05/05/18 13:02 05/06/18 06:21 Tylenol - PO 650 mg Q4H PRN Administration PAIN LEVEL 1 - 3 Atorvastatin Calcium 80 mg 05/05/18 22:00 05/05/18 21:52 Lipitor - PO 80 mg HS NICKI Administration Heparin Sodium (Porcine) 5,000 unit 05/05/18 22:00 05/06/18 06:22 Heparin - SQ 5,000 unit TID NICKI Administration Piperacillin Sod/Tazobactam 50 mls @ 100 mls/hr 05/05/18 18:00 05/06/18 09:17 Sod 3.375 gm/ Dextrose IVPB 100 mls/hr Q8H-IV NICKI Administration Protocol Vancomycin HCl 1,250 mg/ 250 mls @ 250 mls/2 hr 05/06/18 10:00 Dextrose IVPB Q24H NICKI Protocol Insulin Aspart 1 vial 05/05/18 16:30 05/06/18 06:23 Novolog Vial Sliding Scale - SQ 6 units ACHS NICKI Administration Protocol Insulin Detemir 7 units 05/05/18 22:00 05/05/18 21:55 Levemir Vial SQ 7 units HS NICKI Administration Metoprolol Succinate 100 mg 05/06/18 10:00 05/06/18 09:17 Toprol Xl - PO 100 mg DAILY NICKI Administration Nifedipine 60 mg 05/06/18 10:00 05/06/18 09:16 Procardia Xl - PO 60 mg DAILY NICKI Administration Valsartan 320 mg 05/06/18 10:00 05/06/18 09:17 Diovan - PO 320 mg DAILY NICKI Administration ASSESSMENT/PLAN: Patient is a 47 year old male with a significant past medical history of sleep apnea, hypertension, hyperlipidemia and diabetes. He presented to the ED on 05/05 with sepsis secondary to a right diabetic foot infection. 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 States he did not feel his foot while waxing the floor. He went to see a wind tunnel mechanic who prescribed Augmentin for cellulitis. Patient began to have fever and chills soon after and was switched to Keflex by his PCP. Patient continued to have fever and chills and presented to the ED for further evaluation. ID: Cellulitis Right foot diabetic foot infection, failed outpatient PO antibiotics: On Vancomycin and Zosyn per ID. Leukocytosis trending down. Patient reports still having some chills, but overall improving. Noted to have low grade temps. MRI today to rule out osteo. ID and podiatry following. Renal: DANILO Will gently hydrate and monitor renal function. stop diovan and monitor. renal dose meds. Vanco trough prior to next dose. Kidney ultrasound shows no acute pathology. Renal following. Card: Hypertension, chronic: On Diovan, Procardia, Toprol. Will hold Diovan secondary to DANILO. Endocrine Elevated BGMS/Diabetes: Increased Levemir and short acting. monitor Pulm: Sleep apnea, on cpap GI: Elevated ast/alt: trend for now, discontinue tylenol. hepatitis panel pending. fen ns @ 50cc/hr x 24 hours monitor electrolytes diabetic diet prophy: heparin Visit type - Emergency Visit Emergency Visit: Yes ED Registration Date: 05/05/18 Care time: The patient presented to the Emergency Department on the above date and was hospitalized for further evaluation of their emergent condition. - New Patient This patient is new to me today: No - Critical Care Critical Care patient: No - Discharge Referral Referred to [facility] No
[2018-05-06] MEDS ORDERED: VALSARTAN 160 MG TABLET (UD) PO SCH (10:00)
[2018-05-06] MEDS: VANCOMYCIN 1,250 MG in DEXTROSE 5%-WATER - 250 ML IVPB SCH (10:12)
[2018-05-06] MEDS: MUPIROCIN CA 2% TOPICAL CREAM 15 GM TUBE TP SCH ×2 (11:28→21:13)
--- NOTE | 2018-05-06 12:17 | PN ---
Progress Note (short form) - Note Progress Note: continued pain of the right foot Vital Signs Period Temp Pulse Resp BP Sys/Freitas Pulse Ox Last 24 Hr 98.6 F-99.7 F 90-105 18-20 115-158/55-90 98-99 cor-rrr lungs clear abd soft,nt ext +erythema and warmth of the right foot, has receded a bit from the pen bert CBC, BMP 05/06/18 06:30 05/06/18 06:30 Microbiology 05/05/18 10:55 Urine - Urine Clean Catch Urine Culture - Final NO GROWTH OBTAINED 05/05/18 08:55 Blood - Peripheral Venous Blood Culture - Preliminary NO GROWTH OBTAINED AFTER 24 HOURS, INCUBATION TO CONTINUE FOR 4 DAYS. 05/05/18 09:10 Blood - Peripheral Venous Blood Culture - Preliminary NO GROWTH OBTAINED AFTER 24 HOURS, INCUBATION TO CONTINUE FOR 4 DAYS. duplex negative Active Medications Acetaminophen (Tylenol -) 650 mg PO Q4H PRN PRN Reason: PAIN LEVEL 1 - 3 Last Admin: 05/06/18 06:21 Dose: 650 mg Atorvastatin Calcium (Lipitor -) 80 mg PO HS [facility] Last Admin: 05/05/18 21:52 Dose: 80 mg Heparin Sodium (Porcine) (Heparin -) 5,000 unit SQ TID NICKI Last Admin: 05/06/18 06:22 Dose: 5,000 unit Piperacillin Sod/Tazobactam (Sod 3.375 gm/ Dextrose) 50 mls @ 100 mls/hr IVPB Q8H-IV NICKI; Protocol Last Admin: 05/06/18 09:17 Dose: 100 mls/hr Vancomycin HCl 1,250 mg/ (Dextrose) 250 mls @ 250 mls/2 hr IVPB Q24H [facility]ICKI; Protocol Last Admin: 05/06/18 10:12 Dose: 250 mls/2 hr Insulin Aspart (Novolog Vial Sliding Scale -) 1 vial SQ ACHS [facility]; Protocol Last Admin: 05/06/18 11:28 Dose: 10 units Insulin Detemir (Levemir Vial) 10 units SQ HS [facility] Metoprolol Succinate (Toprol Xl -) 100 mg PO DAILY [facility] Last Admin: 05/06/18 09:17 Dose: 100 mg Mupirocin (Bactroban 2% Cream -) 1 applic TP BID [facility] Last Admin: 05/06/18 11:28 Dose: 1 applic Nifedipine (Procardia Xl -) 60 mg PO DAILY [facility] Last Admin: 05/06/18 09:16 Dose: 60 mg Valsartan (Diovan -) 320 mg PO DAILY [facility] Last Admin: 05/06/18 09:17 Dose: 320 mg a/p cellulitis of the foot ?chemical- he was wearing sneaker and sustained spill from 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
[2018-05-06] MEDS: MAG HYDROX/AL HYDROX/SIMETH 30 ML UNIT-DOSE CUP PO SCH ×3 (14:17→20:38)
[2018-05-06] MEDS ORDERED: SODIUM CHLORIDE 1,000 ML IV SCH (17:30)
--- NOTE | 2018-05-06 20:43 | PN ---
Progress Note (short form) - Note Progress Note: Problema 1. CKD 2. proteinuria 3. microscopic hematuria 4. HTN 5. DM 6. diabetic retinopathy 7. cataracts 8. cellulitis 9. CAD Current Medications Al Hydroxide/Mg Hydroxide (Mylanta Oral Suspension -) 30 ml PO Q6HPO [facility] Last Admin: 05/06/18 20:38 Dose: 30 ml Atorvastatin Calcium (Lipitor -) 80 mg PO HS [facility] Last Admin: 05/05/18 21:52 Dose: 80 mg Heparin Sodium (Porcine) (Heparin -) 5,000 unit SQ TID [facility] Last Admin: 05/06/18 13:05 Dose: 5,000 unit Piperacillin Sod/Tazobactam (Sod 3.375 gm/ Dextrose) 50 mls @ 100 mls/hr IVPB Q8H-IV [facility]; Protocol Last Admin: 05/06/18 17:25 Dose: 100 mls/hr Vancomycin HCl 1,250 mg/ (Dextrose) 250 mls @ 250 mls/2 hr IVPB Q24H [facility]; Protocol Last Admin: 05/06/18 10:12 Dose: 250 mls/2 hr Sodium Chloride (Normal Saline -) 1,000 mls @ 50 mls/hr IV ASDIR [facility] Stop: 05/07/18 17:21 Last Admin: 05/06/18 17:28 Dose: 50 mls/hr Insulin Aspart (Novolog Vial Sliding Scale -) 1 vial SQ ACHS [facility]; Protocol Last Admin: 05/06/18 17:22 Dose: 12 units Insulin Detemir (Levemir Vial) 10 units SQ [facility] Metoprolol Succinate (Toprol Xl -) 100 mg PO DAILY [facility] Last Admin: 05/06/18 09:17 Dose: 100 mg Mupirocin (Bactroban 2% Cream -) 1 applic TP BID [facility] Last Admin: 05/06/18 11:28 Dose: 1 applic Nifedipine (Procardia Xl -) 60 mg PO DAILY [facility] Last Admin: 05/06/18 09:16 Dose: 60 mg Valsartan (Diovan -) 320 mg PO DAILY [facility] Last Admin: 05/06/18 09:17 Dose: 320 mg Last Vital Signs Temp Pulse Resp BP Pulse Ox 100.1 F H 97 H 20 134/75 99 05/06/18 14:36 05/06/18 14:36 05/06/18 14:36 05/06/18 14:36 05/06/18 20:26 CBC, BMP 05/06/18 06:30 05/06/18 06:30 CKD CELLULITIS Plan - 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
[2018-05-06] MEDS ORDERED: INSULIN (NOVOLOG) ASPART 100 UNITS/ML 10ML VIAL ONE (21:09)
[2018-05-06] MEDS: ATORVASTATIN CA 80 MG TABLET (FP) PO SCH (21:15)
[2018-05-06] MEDS ORDERED: INSULIN (LEVEMIR) 100 UNITS/ML UNITS SQ SCH (22:00)
[2018-05-07] MEDS: MAG HYDROX/AL HYDROX/SIMETH 30 ML UNIT-DOSE CUP PO SCH ×4 (01:05→17:19)
[2018-05-07] MEDS ORDERED: PIPERACILLIN/TAZOBACTAM 3.375 GM VIAL IVPB ONE ×3 (01:05→16:46)
[2018-05-07] MEDS ORDERED: DEXTROSE 5%-WATER - 50 ML IVPB ONE ×2 (01:06→09:57)
[2018-05-07] MEDS: PIPERACILLIN/TAZOB 3.375 GM 3.375 GM in DEXTROSE 5%-WATER - 50 ML IVPB SCH ×2 (01:10→10:03)
[2018-05-07] MEDS: HEPARIN NA (PORCINE) 5,000 UNITS/ML 1ML VIAL SQ SCH ×3 (06:10→22:43)
[2018-05-07] MEDS: INSULIN SLIDING SCALE (NOVOLOG) 1 VIAL SQ SCH ×4 (06:34→22:43)
[2018-05-07] MEDS ORDERED: INSULIN (NOVOLOG) ASPART 100 UNITS/ML 10ML VIAL ONE (06:40)
--- NOTE | 2018-05-07 07:55 | PN ---
Progress Note (short form) - Note Progress Note: Podiatry F/U: Seen/evaluated at bedside NAD. Patient states the foot feels "looser". Currently with low grade temp. MRI completed yesterday afternoon. ZEENAT: R foot: pedal pulses palpable, TG warm-warmer, CFT brisk to all toes. There is a 2nd interspace superficial ulcer with skin slough, no probing to bone, no purulence, no fluctuance, cellulitis to the midfoot mildly improved, no soft tissue crepitus. Minimal tenderness to palpation. MRI: report pending Blood Cx: no growth Wound Cx: pending Imp: 47 year old DM M with cellulitis R foot 1. IV abx 2. Local wound care 3. Leg elevation 4. MRI report pending 5. Will follow Willi Milian DPM
[2018-05-07 08:57] LABS: BASO % 0.5 % (0-2.0); EOS % 0.4 % (0-4.5); HEMATOCRIT 28.6 % (35.4-49); HEMOGLOBIN 9.6 GM/dL (11.7-16.9); MCHC 33.6 g/dl (32.0-35.9); MEAN CELL VOLUME 80.4 fl (80-96); MEAN PLT VOLUME 7.3 fl (7.5-11.1); MONO % 11.1 % (3.8-10.2); PLATELET COUNT 265 K/MM3 (134-434); RBC 3.56 M/mm3 (4.00-5.60); RDW 13.3 % (11.9-15.9); WHITE BLOOD COUNT 11.2 K/mm3 (4.0-10.0)
[2018-05-07 09:21] LABS: ALBUMIN 2.3 g/dl (3.4-5.0); ANION GAP 9 (8-16); BILIRUBIN,TOTAL 0.3 mg/dL (0.2-1.0); BLOOD UREA NITROGEN 14 mg/dL (7-18); CALCIUM 7.7 mg/dL (8.5-10.1); CHLORIDE 105 mmol/L (98-107); CO2 27 mmol/L (21-32); CREATININE 1.9 mg/dL (0.7-1.3); GLUCOSE,RANDOM 233 mg/dL (74-106); POTASSIUM 4.1 mmol/L (3.5-5.1); SGOT/AST 62 U/L (15-37); SGPT/ALT 89 U/L (12-78); SODIUM 141 mmol/L (136-145); TOT PROT 6.4 g/dl (6.4-8.2)
[2018-05-07 09:22] LABS: ALK PHOS 192 U/L (45-117)
[2018-05-07] MEDS ORDERED: PT OWN MED DRAWER 7, Y5N ONE (09:57)
[2018-05-07] MEDS: NIFEdipine E.R 60 MG TABLET (UD) PO SCH (10:03)
[2018-05-07] MEDS: MUPIROCIN CA 2% TOPICAL CREAM 15 GM TUBE TP SCH ×2 (10:07→22:43)
[2018-05-07] MEDS: VANCOMYCIN 1,250 MG in DEXTROSE 5%-WATER - 250 ML IVPB SCH (10:11)
[2018-05-07] MEDS ORDERED: INSULIN (LEVEMIR) 100 UNITS/ML UNITS SQ SCH (11:48)
--- NOTE | 2018-05-07 11:50 | PN ---
Physical Exam: SUBJECTIVE: Patient seen and examined at the bedside. OBJECTIVE: added levemir 10 units now for elevated bgms surgical shoe to right foot mri of foot pending Vital Signs Period Temp Pulse Resp BP Sys/Freitas Pulse Ox Last 24 Hr 98.0 F-100.4 F 97-105 20- 134-147/75-83 98-99 GENERAL: The patient is awake, alert, and fully oriented, in no acute distress. HEAD: Normal with no signs of trauma. EYES: PERRL, extraocular movements intact, sclera anicteric, conjunctiva clear. No ptosis. ENT: Ears normal, nares patent, oropharynx clear without exudates, moist mucous membranes. NECK: Trachea midline, full range of motion, supple. LUNGS: Breath sounds equal, clear to auscultation bilaterally HEART: Regular rate and rhythm, ABDOMEN: large obese abdomen EXTREMITIES: right foot cellulitis NEUROLOGICAL: Normal speech, gait not observed. PSYCH: Normal mood, normal affect. Laboratory Results - last 24 hr 05/06/18 05/06/18 05/07/18 16:18 21:07 06:09 WBC RBC Hgb Hct MCV MCH MCHC RDW Plt Count MPV Absolute Neuts (auto) Neutrophils % Lymphocytes % Monocytes % Eosinophils % Basophils % Nucleated RBC % Sodium Potassium Chloride Carbon Dioxide Anion Gap BUN Creatinine Creat Clearance w eGFR POC Glucometer 386 354 254 Random Glucose Calcium Magnesium Total Bilirubin AST ALT Alkaline Phosphatase Total Protein Albumin Vancomycin Pre-Dose 05/07/18 05/07/18 05/07/18 08:40 08:40 08:40 WBC 11.2 H RBC 3.56 L Hgb 9.6 L Hct 28.6 L MCV 80.4 MCH 27.0 MCHC 33.6 RDW 13.3 Plt Count 265 D MPV 7.3 L Absolute Neuts (auto) 7.9 Neutrophils % 71.0 Lymphocytes % 17.0 D Monocytes % 11.1 H Eosinophils % 0.4 D Basophils % 0.5 Nucleated RBC % 0 Sodium 141 Potassium 4.1 Chloride 105 Carbon Dioxide 27 Anion Gap 9 BUN 14 Creatinine 1.9 H Creat Clearance w eGFR 37.87 POC Glucometer Random Glucose 233 H Calcium 7.7 L Magnesium 2.0 Total Bilirubin 0.3 AST 62 H D ALT 89 H Alkaline Phosphatase 192 H D Total Protein 6.4 Albumin 2.3 L Vancomycin Pre-Dose 6.34 05/07/18 11:16 WBC RBC Hgb Hct MCV MCH MCHC RDW Plt Count MPV Absolute Neuts (auto) Neutrophils % Lymphocytes % Monocytes % Eosinophils % Basophils % Nucleated RBC % Sodium Potassium Chloride Carbon Dioxide Anion Gap BUN Creatinine Creat Clearance w eGFR POC Glucometer 301 Random Glucose Calcium Magnesium Total Bilirubin AST ALT Alkaline Phosphatase Total Protein Albumin Vancomycin Pre-Dose Active Medications Generic Name Dose Route Start Last Admin Trade Name Freq PRN Reason Stop Dose Admin Al Hydroxide/Mg Hydroxide 30 ml 05/06/18 14:15 05/07/18 11:44 Mylanta Oral Suspension - PO 30 ml Q6HPO [facility] Administration Atorvastatin Calcium 80 mg 05/05/18 22:00 05/06/18 21:15 Lipitor - PO 80 mg HS NICKI Administration Heparin Sodium (Porcine) 5,000 unit 05/05/18 22:00 05/07/18 06:10 Heparin - SQ 5,000 unit TID N[facility] Administration Sodium Chloride 1,000 mls @ 50 mls/hr 05/06/18 17:30 05/06/18 17:28 Normal Saline - IV 05/07/18 17:21 50 mls/hr ASDIR N[facility] Administration Piperacillin Sod/Tazobactam 100 mls @ 200 mls/hr 05/07/18 11:46 Sod 3.375 gm/ Sodium Chloride IVPB Q8H-IV [facility] Protocol Vancomycin HCl 1,250 mg/ 250 mls @ 250 mls/2 hr 05/07/18 12:00 Sodium Chloride IVPB Q24H [facility] Protocol Insulin Aspart 1 vial 05/07/18 11:48 Novolog Vial Sliding Scale - SQ ACHS [facility] Protocol Insulin Detemir 15 units 05/07/18 11:48 Levemir Vial SQ HS [facility] Insulin Detemir 10 units 05/07/18 11:49 Levemir Vial SQ 05/07/18 11:50 ONCE ONE Metoprolol Succinate 100 mg 05/06/18 10:00 05/07/18 10:02 Toprol Xl - PO 100 mg DAILY [facility] Administration Mupirocin 1 applic 05/06/18 10:15 05/07/18 10:07 Bactroban 2% Cream - TP 1 applic BID [facility] Administration Nifedipine 60 mg 05/06/18 10:00 05/07/18 10:03 Procardia Xl - PO 60 mg DAILY [facility] Administration Valsartan 320 mg 05/06/18 10:00 05/06/18 09:17 Diovan - PO 320 mg DAILY [facility] Administration ASSESSMENT/PLAN: Patient is a 47 year old male with a significant past medical history of sleep apnea, hypertension, hyperlipidemia and diabetes. He presented to the ED on 05/05 with sepsis secondary to a right diabetic foot infection. 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 States he did not feel his foot while waxing the floor. He went to see a quality worker who prescribed Augmentin for cellulitis. Patient began to have fever and chills soon after and was switched to Keflex by his PCP. Patient continued to have fever and chills and presented to the ED for further evaluation. ID: Cellulitis Right foot diabetic foot infection, failed outpatient PO antibiotics: On Vancomycin and Zosyn per ID. Leukocytosis trending down. MRI of right foot pending. ID and podiatry following. Renal: DANILO, improving Will gently hydrate and monitor renal function. stop diovan and monitor. renal dose meds. Vanco trough prior to next dose. Kidney ultrasound shows no acute pathology. Renal following. Card: Hypertension, chronic: On Diovan, Procardia, Toprol. Will hold Diovan secondary to DANILO. Endocrine Elevated BGMS/Diabetes: Increased Levemir and short acting. monitor Pulm: Sleep apnea, on cpap GI: Elevated ast/alt: trend for now, discontinue tylenol. hepatitis panel pending. fen ns @ 50cc monitor electrolytes diabetic diet prophy: heparin Visit type - Emergency Visit Emergency Visit: Yes ED Registration Date: 05/05/18 Care time: The patient presented to the Emergency Department on the above date and was hospitalized for further evaluation of their emergent condition. - New Patient This patient is new to me today: No - Critical Care Critical Care patient: No - Discharge Referral Referred to [facility] No
[2018-05-07] MEDS ORDERED: INSULIN (LEVEMIR) 100 UNITS/ML UNITS SQ ONE (12:00)
[2018-05-07] MEDS ORDERED: VANCOMYCIN 1,250 MG in SODIUM CHLORIDE 250 ML IVPB SCH (12:00)
--- NOTE | 2018-05-07 13:43 | PN ---
Progress Note (short form) - Note Progress Note: less foot pain Vital Signs Period Temp Pulse Resp BP Sys/Freitas Pulse Ox Last 24 Hr 98.0 F-100.4 F 97-105 20-28 134-147/75-83 98-99 cor-rrr lungs clear abd soft,nt ext +erythema of the foot unchanged, some skin breakdown between the toes CBC, BMP 05/07/18 08:40 05/07/18 08:40 Microbiology 05/06/18 02:00 Drainage (Swab) Wound Culture - Preliminary NO GROWTH OBTAINED AFTER 24 HOURS INCUBATION, REINCUBATED. 05/05/18 08:55 Blood - Peripheral Venous Blood Culture - Preliminary NO GROWTH OBTAINED AFTER 48 HOURS, INCUBATION TO CONTINUE FOR 3 DAYS. 05/05/18 09:10 Blood - Peripheral Venous Blood Culture - Preliminary NO GROWTH OBTAINED AFTER 48 HOURS, INCUBATION TO CONTINUE FOR 3 DAYS. 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
[2018-05-07] MEDS ORDERED: SODIUM CHLORIDE 100 ML IVPB ONE (16:46)
[2018-05-07] MEDS: PIPERACILLIN/TAZOB 3.375 GM 3.375 GM in SODIUM CHLORIDE 100 ML IVPB SCH (17:18)
[2018-05-07] MEDS: ATORVASTATIN CA 80 MG TABLET (FP) PO SCH (22:42)
--- NOTE | 2018-05-07 23:02 | PN ---
Progress Note (short form) - Note Progress Note: Problema 1. CKD 2. proteinuria 3. microscopic hematuria 4. HTN 5. DM 6. diabetic retinopathy 7. cataracts 8. cellulitis 9. CAD Current Medications Al Hydroxide/Mg Hydroxide (Mylanta Oral Suspension -) 30 ml PO Q6HPO [facility] Last Admin: 05/07/18 17:19 Dose: 30 ml Atorvastatin Calcium (Lipitor -) 80 mg PO HS [facility] Last Admin: 05/07/18 22:42 Dose: 80 mg Heparin Sodium (Porcine) (Heparin -) 5,000 unit SQ TID [facility] Last Admin: 05/07/18 22:43 Dose: 5,000 unit Piperacillin Sod/Tazobactam (Sod 3.375 gm/ Sodium Chloride) 100 mls @ 200 mls/ hr IVPB Q8H-IV [facility]; Protocol Last Admin: 05/07/18 17:18 Dose: 200 mls/hr Vancomycin HCl 1,500 mg/ (Sodium Chloride) 500 mls @ 250 mls/hr IVPB Q24H [facility]; Protocol Insulin Aspart (Novolog Vial Sliding Scale -) 1 vial SQ ACHS [facility]; Protocol Last Admin: 05/07/18 22:43 Dose: 8 units Insulin Detemir (Levemir Vial) 15 units SQ HS [facility] Last Admin: 05/07/18 22:43 Dose: 15 units Metoprolol Succinate (Toprol Xl -) 100 mg PO DAILY [facility] Last Admin: 05/07/18 10:02 Dose: 100 mg Mupirocin (Bactroban 2% Cream -) 1 applic TP BID [facility] Last Admin: 05/07/18 22:43 Dose: 1 applic Nifedipine (Procardia Xl -) 60 mg PO DAILY [facility] Last Admin: 05/07/18 10:03 Dose: 60 mg Valsartan (Diovan -) 320 mg PO DAILY [facility] Last Admin: 05/06/18 09:17 Dose: 320 mg Last Vital Signs Temp Pulse Resp BP Pulse Ox 99.0 F 101 H 20 159/86 98 05/07/18 22:00 05/07/18 22:00 05/07/18 22:00 05/07/18 22:00 05/07/18 20:24 lungs clear heart reg abd soft ext redness CBC, BMP 05/07/18 08:40 05/07/18 08:40 IMP- Acute/ CKD renal function was worse and now is improving may be a sign of improving infectious process CELLULITIS Plan- continue IVF
[2018-05-08] MEDS: MAG HYDROX/AL HYDROX/SIMETH 30 ML UNIT-DOSE CUP PO SCH ×5 (00:03→23:14)
[2018-05-08 00:07] LABS: HEPATITIS B CORE ANTIBODY,IGM Negative (Negative)
[2018-05-08] MEDS ORDERED: PIPERACILLIN/TAZOBACTAM 3.375 GM VIAL IVPB ONE ×3 (01:03→16:18)
[2018-05-08] MEDS ORDERED: SODIUM CHLORIDE 100 ML IVPB ONE ×3 (01:03→16:18)
[2018-05-08] MEDS: PIPERACILLIN/TAZOB 3.375 GM 3.375 GM in SODIUM CHLORIDE 100 ML IVPB SCH ×3 (01:10→17:02)
[2018-05-08] MEDS: HEPARIN NA (PORCINE) 5,000 UNITS/ML 1ML VIAL SQ SCH ×3 (05:23→22:07)
[2018-05-08] MEDS: INSULIN SLIDING SCALE (NOVOLOG) 1 VIAL SQ SCH ×5 (06:36→22:07)
[2018-05-08] MEDS ORDERED: INSULIN (NOVOLOG) ASPART 100 UNITS/ML 10ML VIAL ONE ×2 (06:50→11:02)
[2018-05-08 07:26] LABS: BASO % 0.4 % (0-2.0); EOS % 1.2 % (0-4.5); HEMATOCRIT 27.6 % (35.4-49); HEMOGLOBIN 9.4 GM/dL (11.7-16.9); LYMPH % 22.3 % (8-40); MCH 27.3 pg (25.7-33.7); MCHC 34.2 g/dl (32.0-35.9); MEAN PLT VOLUME 7.3 fl (7.5-11.1); MONO % 13.2 % (3.8-10.2); NEUT % 62.9 % (42.8-82.8); PLATELET COUNT 290 K/MM3 (134-434); RBC 3.45 M/mm3 (4.00-5.60); WHITE BLOOD COUNT 9.5 K/mm3 (4.0-10.0)
[2018-05-08 07:56] LABS: ALBUMIN 2.2 g/dl (3.4-5.0); ANION GAP 6 (8-16); BILIRUBIN,TOTAL 0.3 mg/dL (0.2-1.0); BLOOD UREA NITROGEN 13 mg/dL (7-18); CALCIUM 7.8 mg/dL (8.5-10.1); CHLORIDE 102 mmol/L (98-107); CO2 30 mmol/L (21-32); CREATININE 1.8 mg/dL (0.7-1.3); GLUCOSE,RANDOM 186 mg/dL (74-106); MAGNESIUM 2.1 mg/dL (1.8-2.4); SGOT/AST 67 U/L (15-37); SGPT/ALT 96 U/L (12-78); SODIUM 138 mmol/L (136-145); TOT PROT 6.2 g/dl (6.4-8.2)
[2018-05-08 07:57] LABS: ALK PHOS 190 U/L (45-117)
[2018-05-08] MEDS ORDERED: PT OWN MED DRAWER 7, Y5N ONE ×2 (08:59→21:34)
[2018-05-08] MEDS: NIFEdipine E.R 60 MG TABLET (UD) PO SCH (09:27)
[2018-05-08] MEDS: MUPIROCIN CA 2% TOPICAL CREAM 15 GM TUBE TP SCH ×2 (09:29→22:08)
[2018-05-08] MEDS: SODIUM CHLORIDE 1,000 ML IV SCH ×2 (09:30→15:54)
[2018-05-08] MEDS ORDERED: INSULIN (LEVEMIR) 100 UNITS/ML UNITS SQ ONE (11:00)
[2018-05-08] MEDS ORDERED: INSULIN (LEVEMIR) 100 UNITS/ML UNITS SQ SCH (11:01)
[2018-05-08] MEDS: VANCOMYCIN 1,500 MG in SODIUM CHLORIDE 500 ML IVPB SCH (11:05)
[2018-05-08] MEDS ORDERED: INSULIN SLIDING SCALE (NOVOLOG) 1 VIAL SQ SCH (11:06)
--- NOTE | 2018-05-08 11:53 | PN ---
Physical Exam: SUBJECTIVE: Patient seen and examined at the bedside. Denies discomfort or pain. OBJECTIVE: one blood culture with pending organism, will repeat blood cultures Vital Signs Period Temp Pulse Resp BP Sys/Freitas Pulse Ox Last 24 Hr 98.1 F-99.0 F 95-101 18-20 142-162/76-89 98-98 GENERAL: The patient is awake, alert, and fully oriented, in no acute distress. HEAD: Normal with no signs of trauma. EYES: PERRL, extraocular movements intact, sclera anicteric, conjunctiva clear. No ptosis. ENT: Ears normal, nares patent, oropharynx clear without exudates, moist mucous membranes. NECK: Trachea midline, full range of motion, supple. LUNGS: Breath sounds equal, clear to auscultation bilaterally HEART: Regular rate and rhythm, ABDOMEN: large obese abdomen EXTREMITIES: right foot cellulitis, redness, pain of foot, anterior 2nd and 3rd toe with superficial ulcer with skin slough, on bactroban NEUROLOGICAL: Normal speech, steady gait PSYCH: Normal mood, normal affect. Laboratory Results - last 24 hr 05/06/18 05/07/18 05/07/18 06:30 15:55 22:03 WBC RBC Hgb Hct MCV MCH MCHC RDW Plt Count MPV Absolute Neuts (auto) Neutrophils % Lymphocytes % Monocytes % Eosinophils % Basophils % Nucleated RBC % Sodium Potassium Chloride Carbon Dioxide Anion Gap BUN Creatinine Creat Clearance w eGFR POC Glucometer 279 291 Random Glucose Calcium Magnesium Total Bilirubin AST ALT Alkaline Phosphatase Total Protein Albumin Hep B Core IgM Ab Negative Hepatitis Be Antigen Negative 05/08/18 05/08/18 05/08/18 05:22 06:00 06:00 WBC 9.5 RBC 3.45 L Hgb 9.4 L Hct 27.6 L MCV 80.0 MCH 27.3 MCHC 34.2 RDW 13.0 Plt Count 290 MPV 7.3 L Absolute Neuts (auto) 6.0 Neutrophils % 62.9 Lymphocytes % 22.3 D Monocytes % 13.2 H Eosinophils % 1.2 D Basophils % 0.4 Nucleated RBC % 0 Sodium 138 Potassium 4.0 Chloride 102 Carbon Dioxide 30 Anion Gap 6 L BUN 13 Creatinine 1.8 H Creat Clearance w eGFR 40.30 POC Glucometer 211 Random Glucose 186 H D Calcium 7.8 L Magnesium 2.1 Total Bilirubin 0.3 AST 67 H ALT 96 H Alkaline Phosphatase 190 H Total Protein 6.2 L Albumin 2.2 L Hep B Core IgM Ab Hepatitis Be Antigen 05/08/18 11:01 WBC RBC Hgb Hct MCV MCH MCHC RDW Plt Count MPV Absolute Neuts (auto) Neutrophils % Lymphocytes % Monocytes % Eosinophils % Basophils % Nucleated RBC % Sodium Potassium Chloride Carbon Dioxide Anion Gap BUN Creatinine Creat Clearance w eGFR POC Glucometer 233 Random Glucose Calcium Magnesium Total Bilirubin AST ALT Alkaline Phosphatase Total Protein Albumin Hep B Core IgM Ab Hepatitis Be Antigen Active Medications Generic Name Dose Route Start Last Admin Trade Name Freq PRN Reason Stop Dose Admin Al Hydroxide/Mg Hydroxide 30 ml 05/06/18 14:15 05/08/18 11:04 Mylanta Oral Suspension - PO 30 ml Q6HPO [facility] Administration Atorvastatin Calcium 80 mg 05/05/18 22:00 05/07/18 22:42 Lipitor - PO 80 mg HS [facility] Administration Heparin Sodium (Porcine) 5,000 unit 05/05/18 22:00 05/08/18 05:23 Heparin - SQ 5,000 unit TID [facility] Administration Piperacillin Sod/Tazobactam 100 mls @ 200 mls/hr 05/07/18 11:46 05/08/18 09: 29 Sod 3.375 gm/ Sodium Chloride IVPB 200 mls/hr Q8H-IV [facility] Administration Protocol Vancomycin HCl 1,500 mg/ 500 mls @ 250 mls/hr 05/08/18 12:00 05/08/18 11:05 Sodium Chloride IVPB 250 mls/hr Q24H [facility] Administration Protocol Sodium Chloride 1,000 mls @ 75 mls/hr 05/08/18 07:45 05/08/18 09:30 Normal Saline - IV 75 mls/hr ASDIR [facility] Administration Insulin Aspart 1 vial 05/08/18 11:06 Novolog Vial Sliding Scale - SQ ACHS [facility] Protocol Insulin Detemir 20 units 05/08/18 11:01 Levemir Vial SQ HS [facility] Metoprolol Succinate 100 mg 05/06/18 10:00 05/08/18 09:27 Toprol Xl - PO 100 mg DAILY [facility] Administration Multivitamins/Minerals/Vitamin C 1 tab 05/08/18 12:00 Tab-A-Vit - PO DAILY [facility] Mupirocin 1 applic 05/06/18 10:15 07/30/18 09:29 Bactroban 2% Cream - TP 1 applic BID [facility] Administration Nifedipine 60 mg 05/06/18 10:00 05/08/18 09:27 Procardia Xl - PO 60 mg DAILY [facility] Administration Valsartan 320 mg 05/06/18 10:00 05/06/18 09:17 Diovan - PO 320 mg DAILY [facility] Administration ASSESSMENT/PLAN: Patient is a 47 year old male with a significant past medical history of sleep apnea, hypertension, hyperlipidemia and diabetes. He presented to the ED on 05/05 with sepsis secondary to a right diabetic foot infection. 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 ID: Cellulitis of right foot after chemical exposure of foot at work: Right foot diabetic foot infection and edema, failed outpatient PO antibiotics: On Vancomycin and Zosyn per ID. Leukocytosis resolved. MRI of right foot shows extensive edema, no osteo. ID and podiatry following. Patient encouraged to elevated right foot at all times. Renal: DANILO, improving Will gently hydrate and monitor renal function. stop diovan and monitor. renal dose meds. Kidney ultrasound shows no acute pathology. Renal following. Card: Hypertension, chronic: On Diovan, Procardia, Toprol. Will hold Diovan secondary to DANILO. Endocrine Elevated BGMS/Diabetes: Increased Levemir to BID and short acting. monitor. Patient on home HumalinR and Victoza. Pulm: Sleep apnea, on cpap GI: Elevated ast/alt: discontinue tylenol. hepatitis panel pending. fen ns @ 50cc monitor electrolytes diabetic diet prophy: heparin TID Visit type - Emergency Visit Emergency Visit: Yes ED Registration Date: 05/05/18 Care time: The patient presented to the Emergency Department on the above date and was hospitalized for further evaluation of their emergent condition. - New Patient This patient is new to me today: No - Critical Care Critical Care patient: No - Discharge Referral Referred to [facility] No
[2018-05-08] MEDS: MULTIVITAMINS (DAILY MVI) TABLET (FP) PO SCH (11:59)
--- NOTE | 2018-05-08 12:57 | PN ---
Progress Note, Physician History of Present Illness: Pt seen and examined at bedside. He is awake and alert. He denies shortness of breath. He does not feel that his foot is improved. - Current Medication List Current Medications: Active Medications Al Hydroxide/Mg Hydroxide (Mylanta Oral Suspension -) 30 ml PO Q6HPO [facility] Last Admin: 05/08/18 11:04 Dose: 30 ml Atorvastatin Calcium (Lipitor -) 80 mg PO HS [facility] Last Admin: 05/07/18 22:42 Dose: 80 mg Heparin Sodium (Porcine) (Heparin -) 5,000 unit SQ TID [facility] Last Admin: 05/08/18 05:23 Dose: 5,000 unit Piperacillin Sod/Tazobactam (Sod 3.375 gm/ Sodium Chloride) 100 mls @ 200 mls/ hr IVPB Q8H-IV [facility]; Protocol Last Admin: 05/08/18 09:29 Dose: 200 mls/hr Vancomycin HCl 1,500 mg/ (Sodium Chloride) 500 mls @ 250 mls/hr IVPB Q24H [facility]; Protocol Last Admin: 05/08/18 11:05 Dose: 250 mls/hr Sodium Chloride (Normal Saline -) 1,000 mls @ 75 mls/hr IV ASDIR [facility] Last Admin: 05/08/18 09:30 Dose: 75 mls/hr Insulin Aspart (Novolog Vial Sliding Scale -) 1 vial SQ ACHS [facility]; Protocol Insulin Detemir (Levemir Vial) 20 units SQ [facility] Metoprolol Succinate (Toprol Xl -) 100 mg PO DAILY [facility] Last Admin: 05/08/18 09:27 Dose: 100 mg Multivitamins/Minerals/Vitamin C (Tab-A-Vit -) 1 tab PO DAILY [facility] Last Admin: 05/08/18 11:59 Dose: 1 tab Mupirocin (Bactroban 2% Cream -) 1 applic TP BID [facility] Last Admin: 05/08/18 09:29 Dose: 1 applic Nifedipine (Procardia Xl -) 60 mg PO DAILY [facility] Last Admin: 05/08/18 09:27 Dose: 60 mg Oxycodone HCl (Roxicodone -) 5 mg PO Q6H PRN PRN Reason: PAIN LEVEL 7 - 10 Valsartan (Diovan -) 320 mg PO DAILY [facility] Last Admin: 05/06/18 09:17 Dose: 320 mg - Objective Vital Signs: Vital Signs Temperature 98.6 F 05/08/18 07:25 Pulse Rate 95 H 05/08/18 07:25 Respiratory Rate 18 05/08/18 07:25 Blood Pressure 142/82 05/08/18 07:25 O2 Sat by Pulse Oximetry (%) 98 05/08/18 08:35 Constitutional: Yes: Calm Eyes: Yes: Conjunctiva Clear HENT: Yes: Atraumatic Cardiovascular: Yes: S1, S2 Respiratory: Yes: CTA Bilaterally Gastrointestinal: Yes: Soft, Abdomen, Obese Genitourinary: Yes: WNL Edema: Yes Integumentary: Yes: Erythema Neurological: Yes: Oriented Psychiatric: Yes: Oriented Labs: CBC, BMP 05/08/18 06:00 05/08/18 06:00 INR, PTT INR 1.13 (0.82-1.09) 05/05/18 09:56 Problem List - Problems (1) CKD (chronic kidney disease) Code(s): N18.9 - CHRONIC KIDNEY DISEASE, UNSPECIFIED (2) Cellulitis in diabetic foot Code(s): E11.628 - TYPE 2 DIABETES MELLITUS WITH OTHER SKIN COMPLICATIONS; L03.119 - CELLULITIS OF UNSPECIFIED PART OF LIMB (3) Sepsis Code(s): A41.9 - SEPSIS, UNSPECIFIED ORGANISM Qualifiers: Sepsis type: sepsis due to unspecified organism Qualified Code(s): A41.9 - Sepsis, unspecified organism Assessment/Plan Current Medications Generic Name Dose Route Start Last Admin Trade Name Freq PRN Reason Stop Dose Admin Al Hydroxide/Mg Hydroxide 30 ml 05/06/18 14:15 05/08/18 11:04 Mylanta Oral Suspension - PO 30 ml Q6HPO [facility] Administration Atorvastatin Calcium 80 mg 05/05/18 22:00 05/07/18 22:42 Lipitor - PO 80 mg HS [facility] Administration Heparin Sodium (Porcine) 5,000 unit 05/05/18 22:00 05/08/18 05:23 Heparin - SQ 5,000 unit TID [facility] Administration Piperacillin Sod/Tazobactam 100 mls @ 200 mls/hr 05/07/18 11:46 05/08/18 09: 29 Sod 3.375 gm/ Sodium Chloride IVPB 200 mls/hr Q8H-IV [facility] Administration Protocol Vancomycin HCl 1,500 mg/ 500 mls @ 250 mls/hr 05/08/18 12:00 05/08/18 11:05 Sodium Chloride IVPB 250 mls/hr Q24H [facility] Administration Protocol Sodium Chloride 1,000 mls @ 75 mls/hr 05/08/18 07:45 05/08/18 09:30 Normal Saline - IV 75 mls/hr ASDIR [facility] Administration Insulin Aspart 1 vial 05/08/18 11:06 Novolog Vial Sliding Scale - SQ ACHS [facility] Protocol Insulin Detemir 20 units 05/08/18 11:01 Levemir Vial SQ HS [facility] Metoprolol Succinate 100 mg 05/06/18 10:00 05/08/18 09:27 Toprol Xl - PO 100 mg DAILY [facility] Administration Multivitamins/Minerals/Vitamin C 1 tab 05/08/18 12:00 05/08/18 11:59 Tab-A-Vit - PO 1 tab DAILY [facility] Administration Mupirocin 1 applic 05/06/18 10:15 05/08/18 09:29 Bactroban 2% Cream - TP 1 applic BID [facility] Administration Nifedipine 60 mg 05/06/18 10:00 05/08/18 09:27 Procardia Xl - PO 60 mg DAILY [facility] Administration Oxycodone HCl 5 mg 05/08/18 12:33 Roxicodone - PO Q6H PRN PAIN LEVEL 7 - 10 Valsartan 320 mg 05/06/18 10:00 05/06/18 09:17 Diovan - PO 320 mg DAILY [facility] Administration Laboratory Tests 05/05/18 05/06/18 05/06/18 20:30 05:00 06:30 Urine Protein 2+ H Urine Glucose (UA) 2+ H Urine Blood 2+ H PRITI M-Luis Pending MARIE Screen Pending HCV Quantitation Pending Impression 1. CKD 2. proteinuria 3. microscopic hematuria 4. HTN 5. DM 6. diabetic retinopathy 7. cataracts 8. cellulitis 9. CAD 10. obesity Plan - re-ordered prt to director of community center ratio - renal workup in progress - abx per ID - cont arb - will need better glucose control - discussed weight loss as well - will follow Dr Graham
[2018-05-08 13:30] LABS: URINE APPEARANCE CLEAR; URINE BILIRUBIN NEGATIVE (<2.0 mg/dL); URINE COLOR STRAW; URINE GLUCOSE (UA) 1+ (NEGATIVE); URINE KETONE NEGATIVE (NEGATIVE); URINE LEUK ESTERASE NEGATIVE (NEGATIVE); URINE NITRITE NEGATIVE (NEGATIVE); URINE PROTEIN 2+ (NEGATIVE); URINE UROBILINOGEN NEGATIVE mg/dL (0.2-1.0)
[2018-05-08 13:37] LABS: RATIO URIN PROTEIN/URIN CREAT 2.698 MG/DL
--- NOTE | 2018-05-08 15:45 | PN ---
Progress Note, Physician History of Present Illness: C/O R foot pain Persistant swelling Erythema now extending to distal R LE Temps down - Afebrile WBC now WNL Blood c/s 1 bottle GPCCL MRI c/w cellulitis - Current Medication List Current Medications: Active Medications Al Hydroxide/Mg Hydroxide (Mylanta Oral Suspension -) 30 ml PO Q6HPO [facility] Last Admin: 05/08/18 11:04 Dose: 30 ml Atorvastatin Calcium (Lipitor -) 80 mg PO HS [facility] Last Admin: 05/07/18 22:42 Dose: 80 mg Heparin Sodium (Porcine) (Heparin -) 5,000 unit SQ TID [facility] Last Admin: 05/08/18 13:30 Dose: 5,000 unit Piperacillin Sod/Tazobactam (Sod 3.375 gm/ Sodium Chloride) 100 mls @ 200 mls/ hr IVPB Q8H-IV [facility]; Protocol Last Admin: 05/08/18 09:29 Dose: 200 mls/hr Vancomycin HCl 1,500 mg/ (Sodium Chloride) 500 mls @ 250 mls/hr IVPB Q24H [facility]; Protocol Last Admin: 05/08/18 11:05 Dose: 250 mls/hr Sodium Chloride (Normal Saline -) 1,000 mls @ 75 mls/hr IV ASDIR [facility] Last Admin: 05/08/18 09:30 Dose: 75 mls/hr Insulin Aspart (Novolog Vial Sliding Scale -) 1 vial SQ ACHS [facility]; Protocol Insulin Detemir (Levemir Vial) 20 units SQ BID [facility] Metoprolol Succinate (Toprol Xl -) 100 mg PO DAILY [facility] Last Admin: 05/08/18 09:27 Dose: 100 mg Multivitamins/Minerals/Vitamin C (Tab-A-Vit -) 1 tab PO DAILY [facility] Last Admin: 05/08/18 11:59 Dose: 1 tab Mupirocin (Bactroban 2% Cream -) 1 applic TP BID [facility] Last Admin: 05/08/18 09:29 Dose: 1 applic Nifedipine (Procardia Xl -) 60 mg PO DAILY [facility] Last Admin: 05/08/18 09:27 Dose: 60 mg Oxycodone HCl (Roxicodone -) 5 mg PO Q6H PRN PRN Reason: PAIN LEVEL 7 - 10 Valsartan (Diovan -) 320 mg PO DAILY [facility] Last Admin: 05/06/18 09:17 Dose: 320 mg - Objective Vital Signs: Vital Signs Temperature 98.6 F 05/08/18 07:25 Pulse Rate 95 H 05/08/18 07:25 Respiratory Rate 18 05/08/18 07:25 Blood Pressure 142/82 05/08/18 07:25 O2 Sat by Pulse Oximetry (%) 98 05/08/18 08:35 Constitutional: Yes: No Distress Eyes: Yes: Conjunctiva Clear Cardiovascular: Yes: Regular Rate and Rhythm, S1, S2 Respiratory: Yes: CTA Bilaterally Extremities: Yes: Other (+ edema, R LE. Erythema R foot less intense, but now extending to distal LE. + drainage from toes) Labs: CBC, BMP 05/08/18 06:00 05/08/18 06:00 INR, PTT INR 1.13 (0.82-1.09) 05/05/18 09:56 Assessment/Plan Cellulitis R foot/ LE +BC GPCCL ? significance Fever/ leukocytosis improved Azotemia Repeat BC obtained Continue vancomycin/ zosyn
[2018-05-08] MEDS: oxyCODONE HCL 5 MG TABLET PO PRN ×2 (16:13→22:20)
[2018-05-08] MEDS: ATORVASTATIN CA 80 MG TABLET (FP) PO SCH (22:07)
[2018-05-08] MEDS: INSULIN (LEVEMIR) 100 UNITS/ML UNITS SQ SCH (22:07)
[2018-05-09] MEDS ORDERED: PIPERACILLIN/TAZOBACTAM 3.375 GM VIAL IVPB ONE ×3 (01:17→17:00)
[2018-05-09] MEDS ORDERED: SODIUM CHLORIDE 100 ML IVPB ONE ×3 (01:17→17:01)
[2018-05-09] MEDS: PIPERACILLIN/TAZOB 3.375 GM 3.375 GM in SODIUM CHLORIDE 100 ML IVPB SCH ×3 (01:26→17:06)
[2018-05-09] MEDS: INSULIN SLIDING SCALE (NOVOLOG) 1 VIAL SQ SCH ×4 (06:04→22:41)
[2018-05-09] MEDS: MAG HYDROX/AL HYDROX/SIMETH 30 ML UNIT-DOSE CUP PO SCH ×3 (06:04→17:06)
[2018-05-09] MEDS: SODIUM CHLORIDE 1,000 ML IV SCH ×3 (06:31→16:28)
[2018-05-09 07:03] LABS: BASO % 0.6 % (0-2.0); EOS % 1.4 % (0-4.5); HEMATOCRIT 29.8 % (35.4-49); LYMPH % 22.6 % (8-40); MCH 27.1 pg (25.7-33.7); MCHC 33.5 g/dl (32.0-35.9); MEAN CELL VOLUME 80.8 fl (80-96); MEAN PLT VOLUME 7.1 fl (7.5-11.1); MONO % 10.3 % (3.8-10.2); NEUT % 65.1 % (42.8-82.8); PLATELET COUNT 346 K/MM3 (134-434); RBC 3.69 M/mm3 (4.00-5.60); RDW 13.5 % (11.9-15.9); WHITE BLOOD COUNT 10.8 K/mm3 (4.0-10.0)
[2018-05-09 07:17] LABS: ALBUMIN 2.3 g/dl (3.4-5.0); ALK PHOS 190 U/L (45-117); ANION GAP 9 (8-16); BILIRUBIN,TOTAL 0.4 mg/dL (0.2-1.0); BLOOD UREA NITROGEN 9 mg/dL (7-18); CALCIUM 8.2 mg/dL (8.5-10.1); CHLORIDE 108 mmol/L (98-107); CO2 27 mmol/L (21-32); CREATININE 1.7 mg/dL (0.7-1.3); GLUCOSE,RANDOM 130 mg/dL (74-106); MAGNESIUM 2.1 mg/dL (1.8-2.4); POTASSIUM 4.3 mmol/L (3.5-5.1); SGOT/AST 58 U/L (15-37); SGPT/ALT 90 U/L (12-78); SODIUM 144 mmol/L (136-145); TOT PROT 6.6 g/dl (6.4-8.2)
--- NOTE | 2018-05-09 08:54 | PN ---
Progress Note (short form) - Note Progress Note: Podiatry Pre-op Note: Patient seen/evaluated at bedside, NAD. Has persistent cellulitis to the right dorsal foot, extending to the ankle. Despite IV abx has not improved considerably. There is an area of concern 2nd interspace with fluctuance noted. Discussed with patient risks, benefits and alternatives to surgery at length. Patient amenable to planned procedure. Plan for incision and drainage right foot under MAC/Local. Willi Milian DPM
--- NOTE | 2018-05-09 08:57 | PN ---
Physical Exam: SUBJECTIVE: Patient seen and examined at the bedside. No discomfort or pain. OBJECTIVE: for I&D today, NPO until after procedure Vital Signs Period Temp Pulse Resp BP Sys/Freitas Pulse Ox Last 24 Hr 98.4 F-98.7 F 80-89 20-20 140-158/70-82 98-98 GENERAL: The patient is awake, alert, and fully oriented, in no acute distress. HEAD: Normal with no signs of trauma. EYES: PERRL, extraocular movements intact, sclera anicteric, conjunctiva clear. No ptosis. ENT: Ears normal, nares patent, oropharynx clear without exudates, moist mucous membranes. NECK: Trachea midline, full range of motion, supple. LUNGS: Breath sounds equal, clear to auscultation bilaterally HEART: Regular rate and rhythm, ABDOMEN: large obese abdomen EXTREMITIES: right foot cellulitis, redness, pain of foot, anterior 2nd and 3rd toe with superficial ulcer with skin slough, on bactroban - for OR today NEUROLOGICAL: Normal speech, steady gait PSYCH: Normal mood, normal affect. Laboratory Results - last 24 hr 05/06/18 05/08/18 05/08/18 06:30 11:01 12:34 WBC RBC Hgb Hct MCV MCH MCHC RDW Plt Count MPV Absolute Neuts (auto) Neutrophils % Lymphocytes % Monocytes % Eosinophils % Basophils % Nucleated RBC % Sodium Potassium Chloride Carbon Dioxide Anion Gap BUN Creatinine Creat Clearance w eGFR POC Glucometer 233 Random Glucose Calcium Magnesium Ferritin Total Bilirubin AST ALT Alkaline Phosphatase Total Protein Albumin Urine Color Urine Appearance Urine pH Ur Specific [place] Urine Protein Urine Glucose (UA) Urine Ketones Urine Blood Urine Nitrite Urine Bilirubin Urine Urobilinogen Ur Leukocyte Esterase Urine WBC (Auto) Urine RBC (Auto) U Random Total Protein 170 H Urine Creatinine 63.0 Protein/Creatinin Ratio 2.698 MARIE Screen Negative Hepatitis Be Antibody Negative 05/08/18 05/08/18 05/08/18 12:34 16:08 22:06 WBC RBC Hgb Hct MCV MCH MCHC RDW Plt Count MPV Absolute Neuts (auto) Neutrophils % Lymphocytes % Monocytes % Eosinophils % Basophils % Nucleated RBC % Sodium Potassium Chloride Carbon Dioxide Anion Gap BUN Creatinine Creat Clearance w eGFR POC Glucometer 275 194 Random Glucose Calcium Magnesium Ferritin Total Bilirubin AST ALT Alkaline Phosphatase Total Protein Albumin Urine Color Straw Urine Appearance Clear Urine pH 6.0 Ur Specific [place] 1.008 Urine Protein 2+ H Urine Glucose (UA) 1+ H Urine Ketones Negative Urine Blood 2+ H Urine Nitrite Negative Urine Bilirubin Negative Urine Urobilinogen Negative Ur Leukocyte Esterase Negative Urine WBC (Auto) None Urine RBC (Auto) 4 U Random Total Protein Urine Creatinine Protein/Creatinin Ratio MARIE Screen Hepatitis Be Antibody 05/09/18 05/09/18 05/09/18 05:48 06:00 06:00 WBC 10.8 H RBC 3.69 L Hgb 10.0 L Hct 29.8 L MCV 80.8 MCH 27.1 MCHC 33.5 RDW 13.5 Plt Count 346 MPV 7.1 L Absolute Neuts (auto) 7.0 Neutrophils % 65.1 Lymphocytes % 22.6 Monocytes % 10.3 H Eosinophils % 1.4 Basophils % 0.6 Nucleated RBC % 0 Sodium 144 Potassium 4.3 Chloride 108 H Carbon Dioxide 27 Anion Gap 9 BUN 9 Creatinine 1.7 H Creat Clearance w eGFR 43.05 POC Glucometer 149 Random Glucose 130 H D Calcium 8.2 L Magnesium 2.1 Ferritin 592.9 H Total Bilirubin 0.4 AST 58 H ALT 90 H Alkaline Phosphatase 190 H Total Protein 6.6 Albumin 2.3 L Urine Color Urine Appearance Urine pH Ur Specific [place] Urine Protein Urine Glucose (UA) Urine Ketones Urine Blood Urine Nitrite Urine Bilirubin Urine Urobilinogen Ur Leukocyte Esterase Urine WBC (Auto) Urine RBC (Auto) U Random Total Protein Urine Creatinine Protein/Creatinin Ratio MARIE Screen Hepatitis Be Antibody Active Medications Generic Name Dose Route Start Last Admin Trade Name Freq PRN Reason Stop Dose Admin Al Hydroxide/Mg Hydroxide 30 ml 05/06/18 14:15 05/09/18 06:04 Mylanta Oral Suspension - PO Not Given Q6HPO [facility] Atorvastatin Calcium 80 mg 05/05/18 22:00 05/08/18 22:07 Lipitor - PO 80 mg HS [facility]I Administration Heparin Sodium (Porcine) 5,000 unit 05/05/18 22:00 05/08/18 22:07 Heparin - SQ 5,000 unit TID [facility] Administration Piperacillin Sod/Tazobactam 100 mls @ 200 mls/hr 05/07/18 11:46 05/09/18 01: 26 Sod 3.375 gm/ Sodium Chloride IVPB 200 mls/hr Q8H-IV [facility] Administration Protocol Vancomycin HCl 1,500 mg/ 500 mls @ 250 mls/hr 05/08/18 12:00 05/08/18 11:05 Sodium Chloride IVPB 250 mls/hr Q24H [facility] Administration Protocol Sodium Chloride 1,000 mls @ 75 mls/hr 05/08/18 07:45 05/09/18 06:31 Normal Saline - IV 75 mls/hr ASDIR [facility] Administration Insulin Aspart 1 vial 05/08/18 13:16 05/09/18 06:04 Novolog Vial Sliding Scale - SQ Not Given ACHS [facility] Protocol Insulin Detemir 20 units 05/08/18 22:00 05/08/18 22:07 Levemir Vial SQ 20 units BID [facility] Administration Metoprolol Succinate 100 mg 05/06/18 10:00 05/08/18 09:27 Toprol Xl - PO 100 mg DAILY [facility] Administration Multivitamins/Minerals/Vitamin C 1 tab 05/08/18 12:00 05/08/18 11:59 Tab-A-Vit - PO 1 tab DAILY [facility] Administration Mupirocin 1 applic 05/06/18 10:15 05/08/18 22:08 Bactroban 2% Cream - TP 1 applic BID [facility] Administration Nifedipine 60 mg 05/06/18 10:00 05/08/18 09:27 Procardia Xl - PO 60 mg DAILY [facility] Administration Oxycodone HCl 5 mg 05/08/18 12:33 05/08/18 22:20 Roxicodone - PO 5 mg Q6H PRN Administration PAIN LEVEL 7 - 10 Valsartan 320 mg 05/06/18 10:00 05/06/18 09:17 Diovan - PO 320 mg DAILY [facility] Administration ASSESSMENT/PLAN: Patient is a 47 year old male with a significant past medical history of sleep apnea, hypertension, hyperlipidemia and diabetes. He presented to the ED on 05/05 with sepsis secondary to a right diabetic foot infection. 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 ID: Cellulitis of right foot after chemical exposure of foot at work: Right foot diabetic foot infection and edema, failed outpatient PO antibiotics: On Vancomycin and Zosyn per ID. Leukocytosis improved. MRI of right foot shows extensive edema, no osteo. ID and podiatry following. Patient encouraged to elevated right foot at all times. For OR debridement today. Renal: DANILO, improving Will continue to gently hydrate and monitor renal function. stop diovan and monitor. renal dose meds. Kidney ultrasound shows no acute pathology. Renal following. Card: Hypertension, chronic: On Diovan, Procardia, Toprol. Will hold Diovan secondary to DANILO. Endocrine Elevated BGMS/Diabetes: Increased Levemir to BID and short acting. monitor. Patient on home HumalinR and Victoza. Morbid Obesity, BMI 42, poor dietary intake and non compliance with diet. Dietary consulted and following. Pulm: Sleep apnea, on cpap GI: Elevated ast/alt: discontinue tylenol. hepatitis panel pending. fen ns @ 75cc monitor electrolytes diabetic diet prophy: heparin TID Visit type - Emergency Visit Emergency Visit: Yes ED Registration Date: 05/05/18 Care time: The patient presented to the Emergency Department on the above date and was hospitalized for further evaluation of their emergent condition. - New Patient This patient is new to me today: No - Critical Care Critical Care patient: No - Discharge Referral Referred to [facility] Med P.C.: No
[2018-05-09] MEDS: INSULIN (LEVEMIR) 100 UNITS/ML UNITS SQ SCH ×2 (09:02→22:40)
[2018-05-09] MEDS ORDERED: PT OWN MED DRAWER 7, Y5N ONE ×2 (09:04→11:53)
[2018-05-09] MEDS: MULTIVITAMINS (DAILY MVI) TABLET (FP) PO SCH (09:07)
[2018-05-09] MEDS: NIFEdipine E.R 60 MG TABLET (UD) PO SCH (09:08)
[2018-05-09] MEDS: MUPIROCIN CA 2% TOPICAL CREAM 15 GM TUBE TP SCH ×2 (09:09→22:36)
[2018-05-09] MEDS: VANCOMYCIN 1,500 MG in SODIUM CHLORIDE 500 ML IVPB SCH (12:36)
[2018-05-09] MEDS ORDERED: MIDAZOLAM HCL 2 MG/2 ML SINGLE DOSE VIAL ONE ×2 (14:51→15:19)
[2018-05-09] MEDS ORDERED: ONDANSETRON 4 MG/2 ML VIAL IVPUSH PRN ×2 (14:54→16:19)
[2018-05-09] MEDS ORDERED: LACTATED RINGERS SOLUTION 1,000 ML IV SCH ×2 (15:00→16:19)
[2018-05-09] MEDS ORDERED: LIDOCAINE HCL 2% (50ML VIAL) NR ONE (15:23)
[2018-05-09] MEDS ORDERED: LIDOCAINE HCL/PF 1% SDV 5ML VIAL ONE (15:34)
--- NOTE | 2018-05-09 15:47 | PN ---
Progress Note, Physician History of Present Illness: Pt seen and examined at bedside. He is going for debridement of his foot. He denies shortness of breath. - Current Medication List Current Medications: Active Medications Al Hydroxide/Mg Hydroxide (Mylanta Oral Suspension -) 30 ml PO Q6HPO [facility] Last Admin: 05/09/18 11:43 Dose: Not Given Atorvastatin Calcium (Lipitor -) 80 mg PO HS [facility] Last Admin: 05/08/18 22:07 Dose: 80 mg Fentanyl (Sublimaze Injection -) 50 mcg IVPUSH [id number] PRN PRN Reason: PAIN-PACU ORDER X 4 DOSES ONLY Heparin Sodium (Porcine) (Heparin -) 5,000 unit SQ TID [facility] Last Admin: 05/08/18 22:07 Dose: 5,000 unit Piperacillin Sod/Tazobactam (Sod 3.375 gm/ Sodium Chloride) 100 mls @ 200 mls/ hr IVPB Q8H-IV [facility]; Protocol Last Admin: 05/09/18 09:08 Dose: 200 mls/hr Vancomycin HCl 1,500 mg/ (Sodium Chloride) 500 mls @ 250 mls/hr IVPB Q24H [facility]; Protocol Last Admin: 05/09/18 12:36 Dose: 250 mls/hr Sodium Chloride (Normal Saline -) 1,000 mls @ 75 mls/hr IV ASDIR [facility] Last Admin: 05/09/18 09:09 Dose: Not Given Lactated Ringer's (Lactated Ringers Solution) 1,000 mls @ 75 mls/hr IV ASDIR [facility] Insulin Aspart (Novolog Vial Sliding Scale -) 1 vial SQ ACHS [facility]; Protocol Last Admin: 05/09/18 11:43 Dose: Not Given Insulin Detemir (Levemir Vial) 20 units SQ BID [facility] Last Admin: 05/09/18 09:02 Dose: Not Given Metoprolol Succinate (Toprol Xl -) 100 mg PO DAILY [facility] Last Admin: 05/09/18 09:08 Dose: 100 mg Multivitamins/Minerals/Vitamin C (Tab-A-Vit -) 1 tab PO DAILY [facility] Last Admin: 05/09/18 09:07 Dose: 1 tab Mupirocin (Bactroban 2% Cream -) 1 applic TP BID [facility] Last Admin: 05/09/18 09:09 Dose: Not Given Nifedipine (Procardia Xl -) 60 mg PO DAILY [facility] Last Admin: 05/09/18 09:08 Dose: 60 mg Ondansetron HCl (Zofran Injection) 4 mg IVPUSH Q6H PRN PRN Reason: NAUSEA AND/OR VOMITING Oxycodone HCl (Roxicodone -) 5 mg PO Q6H PRN PRN Reason: PAIN LEVEL 7 - 10 Last Admin: 05/08/18 22:20 Dose: 5 mg Valsartan (Diovan -) 320 mg PO DAILY [facility] Last Admin: 05/06/18 09:17 Dose: 320 mg - Objective Vital Signs: Vital Signs Temperature 99.6 F 05/09/18 12:51 Pulse Rate 93 H 05/09/18 12:51 Respiratory Rate 20 05/09/18 10:00 Blood Pressure 156/84 05/09/18 12:51 O2 Sat by Pulse Oximetry (%) 98 05/08/18 22:30 Constitutional: Yes: Calm Eyes: Yes: Conjunctiva Clear HENT: Yes: Atraumatic Neck: Yes: Supple Cardiovascular: Yes: S1, S2 Respiratory: Yes: CTA Bilaterally Gastrointestinal: Yes: Soft, Abdomen, Obese Genitourinary: Yes: WNL Musculoskeletal: Yes: WNL Edema: LLE: Trace, RLE: Trace Integumentary: Yes: Erythema Wound/Incision: Yes: Dressing Dry and Intact Neurological: Yes: Oriented Psychiatric: Yes: Oriented Labs: CBC, BMP 05/09/18 06:00 05/09/18 06:00 INR, PTT INR 1.13 (0.82-1.09) 05/05/18 09:56 Problem List - Problems (1) CKD (chronic kidney disease) Code(s): N18.9 - CHRONIC KIDNEY DISEASE, UNSPECIFIED (2) Cellulitis in diabetic foot Code(s): E11.628 - TYPE 2 DIABETES MELLITUS WITH OTHER SKIN COMPLICATIONS; L03.119 - CELLULITIS OF UNSPECIFIED PART OF LIMB (3) Sepsis Code(s): A41.9 - SEPSIS, UNSPECIFIED ORGANISM Qualifiers: Sepsis type: sepsis due to unspecified organism Qualified Code(s): A41.9 - Sepsis, unspecified organism Assessment/Plan Current Medications Generic Name Dose Route Start Last Admin Trade Name Freq PRN Reason Stop Dose Admin Al Hydroxide/Mg Hydroxide 30 ml 05/06/18 14:15 05/09/18 11:43 Mylanta Oral Suspension - PO Not Given Q6HPO NICKI Atorvastatin Calcium 80 mg 05/05/18 22:00 05/08/18 22:07 Lipitor - PO 80 mg HS NICKI Administration Fentanyl 50 mcg 05/09/18 14:54 Sublimaze Injection - IVPUSH [id number] PRN PAIN-PACU ORDER X 4 DOSES ONLY Heparin Sodium (Porcine) 5,000 unit 05/05/18 22:00 05/08/18 22:07 Heparin - SQ 5,000 unit TID NICKI Administration Piperacillin Sod/Tazobactam 100 mls @ 200 mls/hr 05/07/18 11:46 05/09/18 09: 08 Sod 3.375 gm/ Sodium Chloride IVPB 200 mls/hr Q8H-IV [facility] Administration Protocol Vancomycin HCl 1,500 mg/ 500 mls @ 250 mls/hr 05/08/18 12:00 05/09/18 12:36 Sodium Chloride IVPB 250 mls/hr Q24H N[facility]I Administration Protocol Sodium Chloride 1,000 mls @ 75 mls/hr 05/08/18 07:45 05/09/18 09:09 Normal Saline - IV Not Given ASDIR NICKI Lactated Ringer's 1,000 mls @ 75 mls/hr 05/09/18 15:00 Lactated Ringers Solution IV ASDIR NICKI Insulin Aspart 1 vial 05/08/18 13:16 05/09/18 11:43 Novolog Vial Sliding Scale - SQ Not Given ACHS [facility] Protocol Insulin Detemir 20 units 05/08/18 22:00 05/09/18 09:02 Levemir Vial SQ Not Given BID [facility] Metoprolol Succinate 100 mg 05/06/18 10:00 05/09/18 09:08 Toprol Xl - PO 100 mg DAILY NICKI Administration Multivitamins/Minerals/Vitamin C 1 tab 05/08/18 12:00 05/09/18 09:07 Tab-A-Vit - PO 1 tab DAILY NICKI Administration Mupirocin 1 applic 05/06/18 10:15 05/09/18 09:09 Bactroban 2% Cream - TP Not Given BID NICKI Nifedipine 60 mg 05/06/18 10:00 05/09/18 09:08 Procardia Xl - PO 60 mg DAILY NICKI Administration Ondansetron HCl 4 mg 05/09/18 14:54 Zofran Injection IVPUSH Q6H PRN NAUSEA AND/OR VOMITING Oxycodone HCl 5 mg 05/08/18 12:33 05/08/18 22:20 Roxicodone - PO 5 mg Q6H PRN Administration PAIN LEVEL 7 - 10 Valsartan 320 mg 05/06/18 10:00 05/06/18 09:17 Diovan - PO 320 mg DAILY NICKI Administration Laboratory Tests 05/06/18 06:30 MARIE Screen Negative Impression 1. CKD 2. proteinuria 3. microscopic hematuria 4. HTN 5. DM 6. diabetic retinopathy 7. cataracts 8. cellulitis 9. CAD 10. obesity 11. possible irritation from chemical spilled on his foot at work Plan - cont to monitor renal function - arb restarted - will need renal workup as outpt once more stable - prelim renal workup in progress - re-ordered prt to chief development officer ratio - abx per ID - will follow Dr Graham
[2018-05-09] MEDS ORDERED: BUPIVACAINE HCL/PF 0.5% (5MG/ML) 10 ML VIAL IJ ONE (15:59)
--- NOTE | 2018-05-09 16:07 | OP ---
Operative Note - Note: Operative Date: 05/09/18 Pre-Operative Diagnosis: abscess and cellulitis right foot Operation: right foot incision and drainage Findings: see op note Post-Operative Diagnosis: Same as Pre-op Surgeon: Jose Carlos Milian Anesthesia: Local, MAC Specimens Removed: abscess right foot Estimated Blood Loss (mls): 5 Drains & Tubes with Location: /" iodoform packing dorsal foot Operative Report Dictated: Yes
[2018-05-09] MEDS ORDERED: VANCOMYCIN 1,500 MG in DEXTROSE 5%-WATER - 250 ML IVPB ONE (16:19)
--- NOTE | 2018-05-09 16:35 | OP ---
DATE OF OPERATION: 05/09/2018 PREOPERATIVE DIAGNOSIS: Abscess and cellulitis, right foot. POSTOPERATIVE DIAGNOSIS: Abscess and cellulitis, right foot. PROCEDURE: Right foot incision and drainage. SURGEON: Jose Carlos Milian DPM HEEL SEWER: None. ANESTHESIA: IV sedation with local. HEMOSTASIS: Surgical dissection. PATHOLOGY: Abscess, right foot. COMPLICATIONS: None. DESCRIPTION OF PROCEDURE: The patient was brought to the operating room and placed on the operating table in the supine position. Following induction of IV sedation, local anesthesia was achieved utilizing 10 mL of 2% lidocaine plain. The right foot was scrubbed, prepped, and draped in the usual sterile fashion. Attention was directed to the right foot where an abscess with underlying cellulitis was visualized and appreciated. I began by performing a 4-cm curvilinear incision overlying the second and third metatarsophalangeal joint extending distally to the second interspace. Upon incision, particularly at the distal aspect of the interspace, there was purulent material expressed from the deep tissues. Dissection continued with a curved hemostat until all underlying purulent material was expressed from the wound down to the fascia. Once healthy, granular, bleeding tissue persisted, the surgical site was copiously irrigated with sterile saline mixed with bacitracin. The surgical site was loosely packed with 1/4-inch iodoform packing. A wound culture was obtained prior to application of the packing. The incision site was loosely coapted using 2-0 nylon in a simple interrupted suture fashion. Following conclusion of the procedure, 10 mL of 0.5% Marcaine plain was infiltrated about the surgical site for postoperative analgesia. The incision was covered with Xeroform and a sterile compressive dressing was applied to the right foot consisting of sterile gauze, ABD, Kerlix and an Greg wrap. The patient tolerated the procedure and anesthesia well without complications. He was transferred from the operating room to the recovery unit with vital signs stable and neurovasculature intact to the right foot. cc: Podiatry LOURDES [id number]
[2018-05-09] MEDS ORDERED: INSULIN (NOVOLOG) ASPART 100 UNITS/ML 10ML VIAL ONE (17:00)
--- NOTE | 2018-05-09 17:05 | PN ---
Progress Note, Physician History of Present Illness: Seen pre-op C/O R foot pain Persistant swelling Erythema extending to distal R LE Temps down - Afebrile WBC now WNL Blood c/s 1 bottle SCN MRI c/w cellulitis - Current Medication List Current Medications: Active Medications Al Hydroxide/Mg Hydroxide (Mylanta Oral Suspension -) 30 ml PO Q6HPO [facility] Atorvastatin Calcium (Lipitor -) 80 mg PO HS [facility] Fentanyl (Sublimaze Injection -) 50 mcg IVPUSH [id number] PRN PRN Reason: PAIN-PACU ORDER X 4 DOSES ONLY Stop: 05/10/18 03:00 Heparin Sodium (Porcine) (Heparin -) 5,000 unit SQ TID [facility] Piperacillin Sod/Tazobactam (Sod 3.375 gm/ Sodium Chloride) 100 mls @ 200 mls/ hr IVPB Q8H-IV [facility]; Protocol Sodium Chloride (Normal Saline -) 1,000 mls @ 75 mls/hr IV ASDIR [facility] Last Admin: 05/09/18 16:28 Dose: 75 mls/hr Vancomycin HCl 1,500 mg/ (Sodium Chloride) 500 mls @ 250 mls/hr IVPB Q24H [facility]; Protocol Insulin Aspart (Novolog Vial Sliding Scale -) 1 vial SQ ACHS [facility]; Protocol Insulin Detemir (Levemir Vial) 20 units SQ BID@0700,2200 [facility] Metoprolol Succinate (Toprol Xl -) 100 mg PO DAILY [facility] Multivitamins/Minerals/Vitamin C (Tab-A-Vit -) 1 tab PO DAILY [facility] Mupirocin (Bactroban 2% Cream -) 1 applic TP BID [facility] Nifedipine (Procardia Xl -) 60 mg PO DAILY [facility] Ondansetron HCl (Zofran Injection) 4 mg IVPUSH Q6H PRN PRN Reason: NAUSEA AND/OR VOMITING Stop: 05/10/18 03:00 Oxycodone HCl (Roxicodone -) 5 mg PO Q6H PRN PRN Reason: PAIN LEVEL 7 - 10 Valsartan (Diovan -) 320 mg PO DAILY [facility] - Objective Vital Signs: Vital Signs Temperature 98.6 F 05/09/18 16:40 Pulse Rate 84 05/09/18 16:40 Respiratory Rate 20 05/09/18 16:40 Blood Pressure 165/80 05/09/18 16:40 O2 Sat by Pulse Oximetry (%) 95 05/09/18 16:25 Constitutional: Yes: No Distress Cardiovascular: Yes: Regular Rate and Rhythm, S1, S2 Respiratory: Yes: CTA Bilaterally Gastrointestinal: Yes: Normal Bowel Sounds, Soft Extremities: Yes: Other (R foot and LE remain swollen; slightly less erythematous and warm) Labs: CBC, BMP 05/09/18 06:00 05/09/18 06:00 INR, PTT INR 1.13 (0.82-1.09) 05/05/18 09:56 Assessment/Plan Cellulitis R foot/ LE +BC SCN c/w contaminant Fever/ leukocytosis improved Azotemia Repeat BC no growth Continue vancomycin/ zosyn Await c/s
[2018-05-09] MEDS: oxyCODONE HCL 5 MG TABLET PO PRN (20:09)
[2018-05-09] MEDS: HEPARIN NA (PORCINE) 5,000 UNITS/ML 1ML VIAL SQ SCH (22:39)
[2018-05-09] MEDS: ATORVASTATIN CA 80 MG TABLET (FP) PO SCH (22:40)
[2018-05-10] MEDS ORDERED: SODIUM CHLORIDE 100 ML IVPB ONE ×3 (01:14→17:54)
[2018-05-10] MEDS ORDERED: PIPERACILLIN/TAZOBACTAM 3.375 GM VIAL IVPB ONE ×3 (01:14→17:54)
[2018-05-10] MEDS: PIPERACILLIN/TAZOB 3.375 GM 3.375 GM in SODIUM CHLORIDE 100 ML IVPB SCH ×3 (01:21→17:56)
[2018-05-10] MEDS: MAG HYDROX/AL HYDROX/SIMETH 30 ML UNIT-DOSE CUP PO SCH ×4 (01:23→17:55)
[2018-05-10] MEDS: oxyCODONE HCL 5 MG TABLET PO PRN (04:26)
[2018-05-10 06:06] LABS: SERUM IRON SATURATION 10 % (15-55); TOTAL IRON BINDING CAPACITY 215 ug/dL (250-450); UIBC 194 ug/dL (111-343)
[2018-05-10] MEDS: HEPARIN NA (PORCINE) 5,000 UNITS/ML 1ML VIAL SQ SCH ×3 (06:06→21:33)
[2018-05-10] MEDS: INSULIN SLIDING SCALE (NOVOLOG) 1 VIAL SQ SCH ×4 (06:59→21:40)
[2018-05-10] MEDS: INSULIN (LEVEMIR) 100 UNITS/ML UNITS SQ SCH ×2 (06:59→21:41)
[2018-05-10 07:59] LABS: BASO % 0.5 % (0-2.0); EOS % 1.5 % (0-4.5); HEMATOCRIT 29.6 % (35.4-49); HEMOGLOBIN 10.1 GM/dL (11.7-16.9); LYMPH % 21.5 % (8-40); MCH 27.4 pg (25.7-33.7); MEAN CELL VOLUME 80.6 fl (80-96); MEAN PLT VOLUME 7.1 fl (7.5-11.1); MONO % 10.2 % (3.8-10.2); NEUT % 66.3 % (42.8-82.8); PLATELET COUNT 387 K/MM3 (134-434); RBC 3.67 M/mm3 (4.00-5.60); RDW 13.4 % (11.9-15.9); WHITE BLOOD COUNT 10.7 K/mm3 (4.0-10.0)
[2018-05-10 08:32] LABS: ALBUMIN 2.2 g/dl (3.4-5.0); ANION GAP 8 (8-16); BLOOD UREA NITROGEN 10 mg/dL (7-18); CALCIUM 8.6 mg/dL (8.5-10.1); CHLORIDE 104 mmol/L (98-107); CO2 29 mmol/L (21-32); GLUCOSE,RANDOM 128 mg/dL (74-106); MAGNESIUM 1.9 mg/dL (1.8-2.4); POTASSIUM 4.2 mmol/L (3.5-5.1); SODIUM 141 mmol/L (136-145)
[2018-05-10 08:37] LABS: ALK PHOS 170 U/L (45-117); BILIRUBIN,TOTAL 0.3 mg/dL (0.2-1.0); CREATININE 1.7 mg/dL (0.7-1.3); SGOT/AST 48 U/L (15-37); SGPT/ALT 81 U/L (12-78); TOT PROT 6.7 g/dl (6.4-8.2)
[2018-05-10] MEDS: MULTIVITAMINS (DAILY MVI) TABLET (FP) PO SCH (09:34)
[2018-05-10] MEDS: NIFEdipine E.R. 90 MG TABLET (FP) PO SCH (09:34)
[2018-05-10] MEDS: MUPIROCIN CA 2% TOPICAL CREAM 15 GM TUBE TP SCH ×2 (09:34→21:32)
[2018-05-10] MEDS: VALSARTAN 160 MG TABLET (UD) PO SCH (09:34)
--- NOTE | 2018-05-10 09:38 | PN ---
Physical Exam: SUBJECTIVE: Patient seen and examined at the bedside. Feels better today, s/p surgical debridement. Pain controlled. Reports having a burning sensation on his left leg overnight that quickly subsided. OBJECTIVE: POD#1: I&D surgical debridement Vital Signs Period Temp Pulse Resp BP Sys/Freitas Pulse Ox Last 24 Hr 98.6 F-100.3 F 84-100 14-21 151-179/72-98 95-99 GENERAL: The patient is awake, alert, and fully oriented, in no acute distress. HEAD: Normal with no signs of trauma. EYES: PERRL, extraocular movements intact, sclera anicteric, conjunctiva clear. No ptosis. ENT: Ears normal, nares patent, oropharynx clear without exudates, moist mucous membranes. NECK: Trachea midline, full range of motion, supple. LUNGS: Breath sounds equal, clear to auscultation bilaterally HEART: Regular rate and rhythm, ABDOMEN: large obese abdomen EXTREMITIES: right foot cellulitis, redness, pain of foot, anterior 2nd and 3rd toe with superficial ulcer with skin slough, on bactroban - s/p debridement on NEUROLOGICAL: Normal speech, steady gait PSYCH: Normal mood, normal affect. Laboratory Results - last 24 hr 05/05/18 05/06/18 05/09/18 20:30 06:30 06:00 WBC RBC Hgb Hct MCV MCH MCHC RDW Plt Count MPV Absolute Neuts (auto) Neutrophils % Lymphocytes % Monocytes % Eosinophils % Basophils % Nucleated RBC % Sodium Potassium Chloride Carbon Dioxide Anion Gap BUN Creatinine Creat Clearance w eGFR POC Glucometer Random Glucose Calcium Magnesium Iron 21 L TIBC 215 L Iron Saturation 10 L Total Bilirubin AST ALT Alkaline Phosphatase Total Protein Total Protein (PEP) 5.7 L Albumin Albumin (PEP) 2.3 L Globulin 3.4 Albumin/Globulin Ratio 0.7 Beta Globulins 1.0 PRITI M-Luis Not observed HCV Quantitation Hcv not detected Hepatitis C RNA TN 05/09/18 05/10/18 05/10/18 22:39 06:01 06:50 WBC 10.7 H RBC 3.67 L Hgb 10.1 L Hct 29.6 L MCV 80.6 MCH 27.4 MCHC 34.0 RDW 13.4 Plt Count 387 MPV 7.1 L Absolute Neuts (auto) 7.1 Neutrophils % 66.3 Lymphocytes % 21.5 Monocytes % 10.2 Eosinophils % 1.5 Basophils % 0.5 Nucleated RBC % 0 Sodium Potassium Chloride Carbon Dioxide Anion Gap BUN Creatinine Creat Clearance w eGFR POC Glucometer 256 96 Random Glucose Calcium Magnesium Iron TIBC Iron Saturation Total Bilirubin AST ALT Alkaline Phosphatase Total Protein Total Protein (PEP) Albumin Albumin (PEP) Globulin Albumin/Globulin Ratio Beta Globulins PRITI M-Luis HCV Quantitation Hepatitis C RNA 05/10/18 06:50 WBC RBC Hgb Hct MCV MCH MCHC RDW Plt Count MPV Absolute Neuts (auto) Neutrophils % Lymphocytes % Monocytes % Eosinophils % Basophils % Nucleated RBC % Sodium 141 Potassium 4.2 Chloride 104 Carbon Dioxide 29 Anion Gap 8 BUN 10 Creatinine 1.7 H Creat Clearance w eGFR 43.05 POC Glucometer Random Glucose 128 H Calcium 8.6 Magnesium 1.9 Iron TIBC Iron Saturation Total Bilirubin 0.3 AST 48 H ALT 81 H Alkaline Phosphatase 170 H D Total Protein 6.7 Total Protein (PEP) Albumin 2.2 L Albumin (PEP) Globulin Albumin/Globulin Ratio Beta Globulins PRITI M-Luis HCV Quantitation Hepatitis C RNA Active Medications Generic Name Dose Route Start Last Admin Trade Name Freq PRN Reason Stop Dose Admin Al Hydroxide/Mg Hydroxide 30 ml 05/09/18 18:00 05/10/18 06:06 Mylanta Oral Suspension - PO Not Given Q6HPO NICKI Atorvastatin Calcium 80 mg 05/09/18 22:00 05/09/18 22:40 Lipitor - PO 80 mg HS NICKI Administration Docusate Sodium 100 mg 05/10/18 14:00 Colace - PO TID NICKI Heparin Sodium (Porcine) 5,000 unit 05/09/18 22:00 05/10/18 06:06 Heparin - SQ 5,000 unit TID NICKI Administration Piperacillin Sod/Tazobactam 100 mls @ 200 mls/hr 05/09/18 18:00 05/10/18 01: 21 Sod 3.375 gm/ Sodium Chloride IVPB 200 mls/hr Q8H-IV NICKI Administration Protocol Sodium Chloride 1,000 mls @ 75 mls/hr 05/09/18 16:19 05/09/18 16:28 Normal Saline - IV 75 mls/hr ASDIR NICKI Administration Vancomycin HCl 1,500 mg/ 500 mls @ 250 mls/hr 05/10/18 12:00 Sodium Chloride IVPB Q24H [facility] Protocol Insulin Aspart 1 vial 05/09/18 16:30 05/10/18 06:59 Novolog Vial Sliding Scale - SQ Not Given ACHS [facility] Protocol Insulin Detemir 20 units 05/09/18 22:00 05/10/18 06:59 Levemir Vial SQ 20 unit BID@0700,2200 [facility] Administration Metoprolol Succinate 100 mg 05/10/18 10:00 Toprol Xl - PO DAILY [facility] Multivitamins/Minerals/Vitamin C 1 tab 05/10/18 10:00 Tab-A-Vit - PO DAILY [facility] Mupirocin 1 applic 05/09/18 22:00 05/09/18 22:36 Bactroban 2% Cream - TP Not Given BID [facility] Nifedipine 90 mg 05/10/18 10:00 Procardia Xl - PO DAILY [facility] Oxycodone HCl 5 mg 05/09/18 16:19 05/10/18 04:26 Roxicodone - PO 5 mg Q6H PRN Administration PAIN LEVEL 7 - 10 Polyethylene Glycol 17 gm 05/10/18 10:00 Miralax (For Daily Use) - PO DAILY [facility] Valsartan 320 mg 05/10/18 10:00 Diovan - PO DAILY [facility] ASSESSMENT/PLAN: Patient is a 47 year old male with a significant past medical history of sleep apnea, hypertension, hyperlipidemia and diabetes. He presented to the ED on 05/05 with sepsis secondary to a right diabetic foot infection. 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 ID: Cellulitis of right foot after chemical exposure of foot at work: Right foot diabetic foot infection and edema, failed outpatient PO antibiotics: On Vancomycin and Zosyn per ID. Leukocytosis improved. MRI of right foot shows extensive edema, no osteo. ID and podiatry following. s/p I&D on 05/09/2018, dressing c/d/i. Renal: DANILO, improving on ivf. Diovan, HCTZ on hold. BP elevated and Procardia was increased. Kidney ultrasound shows no acute pathology. Renal following. Card: Hypertension, chronic: BP not at goal, increased Procardia. Diovan and hctz on hold for DANILO. Endocrine: Elevated BGMS/Diabetes: improving. On Levemir 20 units bid and sliding scale. monitor. Patient on home HumalinR and Victoza. Morbid Obesity: BMI 42, poor dietary intake and non compliance with diet. Dietary consulted and following. Pulm: Sleep apnea, on cpap GI: Elevated ast/alt: discontinue tylenol. hepatitis panel wnl fen ns @ 75cc monitor electrolytes diabetic diet prophy: heparin TID Visit type - Emergency Visit Emergency Visit: Yes ED Registration Date: 05/05/18 Care time: The patient presented to the Emergency Department on the above date and was hospitalized for further evaluation of their emergent condition. - New Patient This patient is new to me today: No - Critical Care Critical Care patient: No - Discharge Referral Referred to [facility] No
--- NOTE | 2018-05-10 09:55 | PN ---
Progress Note, Physician Chief Complaint: s/p i and d of right foot under MAC anesthesia and local anesthetic by surgeon History of Present Illness: post op day one - Current Medication List Current Medications: Active Medications Al Hydroxide/Mg Hydroxide (Mylanta Oral Suspension -) 30 ml PO Q6HPO [facility] Last Admin: 05/10/18 06:06 Dose: Not Given Atorvastatin Calcium (Lipitor -) 80 mg PO HS [facility] Last Admin: 05/09/18 22:40 Dose: 80 mg Docusate Sodium (Colace -) 100 mg PO TID [facility] Heparin Sodium (Porcine) (Heparin -) 5,000 unit SQ TID [facility] Last Admin: 05/10/18 06:06 Dose: 5,000 unit Piperacillin Sod/Tazobactam (Sod 3.375 gm/ Sodium Chloride) 100 mls @ 200 mls/ hr IVPB Q8H-IV [facility]; Protocol Last Admin: 05/10/18 09:35 Dose: 200 mls/hr Sodium Chloride (Normal Saline -) 1,000 mls @ 75 mls/hr IV ASDIR [facility] Last Admin: 05/09/18 16:28 Dose: 75 mls/hr Vancomycin HCl 1,500 mg/ (Sodium Chloride) 500 mls @ 250 mls/hr IVPB Q24H [facility]; Protocol Insulin Aspart (Novolog Vial Sliding Scale -) 1 vial SQ ACHS [facility]; Protocol Last Admin: 05/10/18 06:59 Dose: Not Given Insulin Detemir (Levemir Vial) 20 units SQ BID@0700,2200 [facility] Last Admin: 05/10/18 06:59 Dose: 20 unit Metoprolol Succinate (Toprol Xl -) 100 mg PO DAILY [facility] Last Admin: 05/10/18 09:34 Dose: 100 mg Multivitamins/Minerals/Vitamin C (Tab-A-Vit -) 1 tab PO DAILY [facility] Last Admin: 05/10/18 09:34 Dose: 1 tab Mupirocin (Bactroban 2% Cream -) 1 applic TP BID [facility] Last Admin: 05/10/18 09:34 Dose: Not Given Nifedipine (Procardia Xl -) 90 mg PO DAILY [facility] Last Admin: 05/10/18 09:34 Dose: 90 mg Oxycodone HCl (Roxicodone -) 5 mg PO Q6H PRN PRN Reason: PAIN LEVEL 7 - 10 Last Admin: 05/10/18 04:26 Dose: 5 mg Polyethylene Glycol (Miralax (For Daily Use) -) 17 gm PO DAILY [facility] Valsartan (Diovan -) 320 mg PO DAILY [facility] Last Admin: 05/10/18 09:34 Dose: 320 mg - Objective Vital Signs: Vital Signs Temperature 98.8 F 05/10/18 09:00 Pulse Rate 90 05/10/18 09:00 Respiratory Rate 20 05/10/18 09:00 Blood Pressure 164/96 05/10/18 09:00 O2 Sat by Pulse Oximetry (%) 99 05/09/18 21:00 Constitutional: Yes: Well Nourished Cardiovascular: Yes: WNL Respiratory: Yes: WNL Gastrointestinal: Yes: WNL, Abdomen, Obese Labs: CBC, BMP 05/10/18 06:50 05/10/18 06:50 INR, PTT INR 1.13 (0.82-1.09) 05/05/18 09:56 Assessment/Plan No adverse effects of anesthetic, pain controlled, dept of anesthesia will sign off care at this time
[2018-05-10] MEDS ORDERED: NIFEdipine E.R. 30 MG TABLET (FP) PO SCH (10:00)
--- NOTE | 2018-05-10 11:15 | PN ---
Progress Note (short form) - Note Progress Note: Podiatry F/U: Seen/evaluated at bedside NAD. Pain well controlled, denies F/V/N/C/SOB/CP. Afebrile. S/p R foot incision and drainage of abscess POD#1. ZEENAT: R foot: dressing C/D/I, no active bleeding. Packing in place, sutures intact, no dehiscence noted. Moderate erythema to the dorsal forefoot as well as edema mildly improved. No purulent drainage, no fluctuance, no soft tissue crepitus. Decreasing tenderness to palpation. OR cx: pending Imp: 47 year old DM M s/p R foot incision and drainage POD#1 1. IV abx per ID 2. Packing removed, DSD R foot 3. PT for partial weightbearing R heel with surgical shoe 4. F/u OR cultures 5. Will follow Willi Milian DPM
[2018-05-10] MEDS: POLYETHYLENE GLYCOL 3350 119 GM BTL PO SCH (11:39)
--- NOTE | 2018-05-10 12:23 | PN ---
Progress Note, Physician History of Present Illness: Pt seen and examined at bedside. He is awake and alert. He denies shortness of breath. - Current Medication List Current Medications: Active Medications Al Hydroxide/Mg Hydroxide (Mylanta Oral Suspension -) 30 ml PO Q6HPO [facility] Last Admin: 05/10/18 06:06 Dose: Not Given Atorvastatin Calcium (Lipitor -) 80 mg PO HS [facility] Last Admin: 05/09/18 22:40 Dose: 80 mg Docusate Sodium (Colace -) 100 mg PO TID [facility] Heparin Sodium (Porcine) (Heparin -) 5,000 unit SQ TID [facility] Last Admin: 05/10/18 06:06 Dose: 5,000 unit Piperacillin Sod/Tazobactam (Sod 3.375 gm/ Sodium Chloride) 100 mls @ 200 mls/ hr IVPB Q8H-IV [facility]; Protocol Last Admin: 05/10/18 09:35 Dose: 200 mls/hr Sodium Chloride (Normal Saline -) 1,000 mls @ 75 mls/hr IV ASDIR [facility] Last Admin: 05/09/18 16:28 Dose: 75 mls/hr Vancomycin HCl 1,500 mg/ (Sodium Chloride) 500 mls @ 250 mls/hr IVPB Q24H [facility]; Protocol Insulin Aspart (Novolog Vial Sliding Scale -) 1 vial SQ ACHS [facility]; Protocol Last Admin: 05/10/18 11:41 Dose: 6 units Insulin Detemir (Levemir Vial) 20 units SQ BID@0700,2200 [facility] Last Admin: 05/10/18 06:59 Dose: 20 unit Metoprolol Succinate (Toprol Xl -) 100 mg PO DAILY [facility] Last Admin: 05/10/18 09:34 Dose: 100 mg Multivitamins/Minerals/Vitamin C (Tab-A-Vit -) 1 tab PO DAILY [facility] Last Admin: 05/10/18 09:34 Dose: 1 tab Mupirocin (Bactroban 2% Cream -) 1 applic TP BID [facility] Last Admin: 05/10/18 09:34 Dose: Not Given Nifedipine (Procardia Xl -) 90 mg PO DAILY [facility] Last Admin: 05/10/18 09:34 Dose: 90 mg Oxycodone HCl (Roxicodone -) 5 mg PO Q6H PRN PRN Reason: PAIN LEVEL 7 - 10 Last Admin: 05/10/18 04:26 Dose: 5 mg Polyethylene Glycol (Miralax (For Daily Use) -) 17 gm PO DAILY [facility] Last Admin: 05/10/18 11:39 Dose: Not Given Valsartan (Diovan -) 320 mg PO DAILY [facility] Last Admin: 05/10/18 09:34 Dose: 320 mg - Objective Vital Signs: Vital Signs Temperature 98.8 F 05/10/18 09:00 Pulse Rate 90 05/10/18 09:00 Respiratory Rate 20 05/10/18 09:00 Blood Pressure 164/96 05/10/18 09:00 O2 Sat by Pulse Oximetry (%) 99 05/09/18 21:00 Constitutional: Yes: Calm Eyes: Yes: Conjunctiva Clear HENT: Yes: Atraumatic Cardiovascular: Yes: S1, S2 Respiratory: Yes: CTA Bilaterally Gastrointestinal: Yes: Normal Bowel Sounds, Soft Genitourinary: Yes: WNL Edema: LLE: Trace, RLE: Trace Wound/Incision: Yes: Dressing Dry and Intact Neurological: Yes: Oriented Psychiatric: Yes: Oriented Labs: CBC, BMP 05/10/18 06:50 05/10/18 06:50 INR, PTT INR 1.13 (0.82-1.09) 05/05/18 09:56 Problem List - Problems (1) CKD (chronic kidney disease) Code(s): N18.9 - CHRONIC KIDNEY DISEASE, UNSPECIFIED (2) Cellulitis in diabetic foot Code(s): E11.628 - TYPE 2 DIABETES MELLITUS WITH OTHER SKIN COMPLICATIONS; L03.119 - CELLULITIS OF UNSPECIFIED PART OF LIMB (3) Sepsis Code(s): A41.9 - SEPSIS, UNSPECIFIED ORGANISM Qualifiers: Sepsis type: sepsis due to unspecified organism Qualified Code(s): A41.9 - Sepsis, unspecified organism Assessment/Plan Current Medications Generic Name Dose Route Start Last Admin Trade Name Freq PRN Reason Stop Dose Admin Al Hydroxide/Mg Hydroxide 30 ml 05/09/18 18:00 05/10/18 06:06 Mylanta Oral Suspension - PO Not Given Q6HPO NICKI Atorvastatin Calcium 80 mg 05/09/18 22:00 05/09/18 22:40 Lipitor - PO 80 mg HS N[facility]I Administration Docusate Sodium 100 mg 05/10/18 14:00 Colace - PO TID NICKI Heparin Sodium (Porcine) 5,000 unit 05/09/18 22:00 05/10/18 06:06 Heparin - SQ 5,000 unit TID [facility]I Administration Piperacillin Sod/Tazobactam 100 mls @ 200 mls/hr 05/09/18 18:00 05/10/18 09: 35 Sod 3.375 gm/ Sodium Chloride IVPB 200 mls/hr Q8H-IV [facility] Administration Protocol Sodium Chloride 1,000 mls @ 75 mls/hr 05/09/18 16:19 05/09/18 16:28 Normal Saline - IV 75 mls/hr ASDIR [facility] Administration Vancomycin HCl 1,500 mg/ 500 mls @ 250 mls/hr 05/10/18 12:00 Sodium Chloride IVPB Q24H [facility] Protocol Insulin Aspart 1 vial 05/09/18 16:30 05/10/18 11:41 Novolog Vial Sliding Scale - SQ 6 units ACHS [facility] Administration Protocol Insulin Detemir 20 units 05/09/18 22:00 05/10/18 06:59 Levemir Vial SQ 20 unit BID@0700,2200 [facility] Administration Metoprolol Succinate 100 mg 05/10/18 10:00 05/10/18 09:34 Toprol Xl - PO 100 mg DAILY [facility] Administration Multivitamins/Minerals/Vitamin C 1 tab 05/10/18 10:00 05/10/18 09:34 Tab-A-Vit - PO 1 tab DAILY [facility] Administration Mupirocin 1 applic 05/09/18 22:00 05/10/18 09:34 Bactroban 2% Cream - TP Not Given BID [facility] Nifedipine 90 mg 05/10/18 10:00 05/10/18 09:34 Procardia Xl - PO 90 mg DAILY [facility] Administration Oxycodone HCl 5 mg 05/09/18 16:19 05/10/18 04:26 Roxicodone - PO 5 mg Q6H PRN Administration PAIN LEVEL 7 - 10 Polyethylene Glycol 17 gm 05/10/18 10:00 05/10/18 11:39 Miralax (For Daily Use) - PO Not Given DAILY [facility] Valsartan 320 mg 05/10/18 10:00 05/10/18 09:34 Diovan - PO 320 mg DAILY [facility] Administration Impression 1. CKD 2. proteinuria 3. microscopic hematuria 4. HTN 5. DM 6. diabetic retinopathy 7. cataracts 8. cellulitis 9. CAD 10. obesity 11. possible irritation from chemical spilled on his foot at work Plan - cont arb - renal function stable - full workup as outpt - follow cultures - podiatry input appreciated - follow urine studies - abx per ID - will follow Dr Graham
[2018-05-10] MEDS: VANCOMYCIN 1,500 MG in SODIUM CHLORIDE 500 ML IVPB SCH (13:03)
[2018-05-10] MEDS: DOCUSATE SODIUM 100 MG CAPSULE (FP) PO SCH ×2 (14:33→21:31)
[2018-05-10] MEDS: SODIUM CHLORIDE 1,000 ML IV SCH (17:56)
[2018-05-10] MEDS: ATORVASTATIN CA 80 MG TABLET (FP) PO SCH (21:31)
[2018-05-11] MEDS ORDERED: PIPERACILLIN/TAZOBACTAM 3.375 GM VIAL IVPB ONE ×3 (01:02→17:12)
[2018-05-11] MEDS ORDERED: SODIUM CHLORIDE 100 ML IVPB ONE ×3 (01:02→17:12)
[2018-05-11] MEDS: MAG HYDROX/AL HYDROX/SIMETH 30 ML UNIT-DOSE CUP PO SCH ×4 (01:13→17:18)
[2018-05-11] MEDS: PIPERACILLIN/TAZOB 3.375 GM 3.375 GM in SODIUM CHLORIDE 100 ML IVPB SCH ×3 (01:13→17:18)
[2018-05-11] MEDS: SODIUM CHLORIDE 1,000 ML IV SCH ×2 (01:16→21:22)
[2018-05-11] MEDS: INSULIN (LEVEMIR) 100 UNITS/ML UNITS SQ SCH ×2 (06:19→21:30)
[2018-05-11] MEDS: INSULIN SLIDING SCALE (NOVOLOG) 1 VIAL SQ SCH ×4 (06:20→21:30)
[2018-05-11] MEDS: HEPARIN NA (PORCINE) 5,000 UNITS/ML 1ML VIAL SQ SCH ×3 (06:30→21:25)
[2018-05-11] MEDS: DOCUSATE SODIUM 100 MG CAPSULE (FP) PO SCH ×3 (06:31→21:24)
[2018-05-11 07:15] LABS: BASO % 0.4 % (0-2.0); EOS % 2.3 % (0-4.5); HEMATOCRIT 29.6 % (35.4-49); LYMPH % 20.8 % (8-40); MCH 26.9 pg (25.7-33.7); MCHC 33.6 g/dl (32.0-35.9); MEAN CELL VOLUME 80.2 fl (80-96); MEAN PLT VOLUME 7.1 fl (7.5-11.1); MONO % 8.5 % (3.8-10.2); PLATELET COUNT 408 K/MM3 (134-434); RDW 13.4 % (11.9-15.9); WHITE BLOOD COUNT 8.6 K/mm3 (4.0-10.0)
[2018-05-11 08:07] LABS: CHLORIDE 106 mmol/L (98-107); POTASSIUM 3.7 mmol/L (3.5-5.1); SODIUM 142 mmol/L (136-145)
[2018-05-11 08:15] LABS: ALBUMIN 2.2 g/dl (3.4-5.0); ALK PHOS 150 U/L (45-117); ANION GAP 9 (8-16); BILIRUBIN,TOTAL 0.3 mg/dL (0.2-1.0); BLOOD UREA NITROGEN 9 mg/dL (7-18); CALCIUM 8.2 mg/dL (8.5-10.1); CO2 27 mmol/L (21-32); CREATININE 1.6 mg/dL (0.7-1.3); GLUCOSE,RANDOM 180 mg/dL (74-106); MAGNESIUM 1.8 mg/dL (1.8-2.4); SGOT/AST 36 U/L (15-37); SGPT/ALT 66 U/L (12-78); TOT PROT 6.7 g/dl (6.4-8.2)
[2018-05-11] MEDS: POLYETHYLENE GLYCOL 3350 119 GM BTL PO SCH (09:19)
[2018-05-11] MEDS: MUPIROCIN CA 2% TOPICAL CREAM 15 GM TUBE TP SCH ×3 (09:20→21:30)
[2018-05-11] MEDS: NIFEdipine E.R. 90 MG TABLET (FP) PO SCH (09:25)
[2018-05-11] MEDS: VALSARTAN 160 MG TABLET (UD) PO SCH (09:25)
[2018-05-11] MEDS: MULTIVITAMINS (DAILY MVI) TABLET (FP) PO SCH (09:25)
--- NOTE | 2018-05-11 10:15 | PN ---
Progress Note (short form) - Note Progress Note: Podiatry F/U: Seen/evaluated at [facility]. Denies F/V/N/C/SOB/CP. Pain much better to R foot. afebrile. S/p R foot incision and drainage of abscess. ZEENAT: R foot: pedal pulses palpable, TG wnl. Incision site well coapted with some serous drainage, no purulence, no fluctuance, decreasing erythema, decreasing edema, no soft tissue crepitus. Imp: 47 year old DM M s/p R foot incision and drainage of abscess 1. IV abx per ID 2. ?micrococcus blood cx 3. Bactroban + DSD R foot 4. Partial WB R heel with surgical shoe 5. Upon discharge, will f[facility] [phone] Willi Milian DPM
--- NOTE | 2018-05-11 11:19 | PN ---
Physical Exam: SUBJECTIVE: Patient seen and examined at the bedside. Feels well today, in no acute pain. Wants to go home. OBJECTIVE: patient to be taught how to use a sliding scale and monitor his blood sugars closer, at least 3 times per day. A glucometer has been called into his pharmacy. Confirmed with his pharmacy that he is on Humalin R and Victoza and has adequate pen needles and supplies. Vital Signs Period Temp Pulse Resp BP Sys/Freitas Pulse Ox Last 24 Hr 98.5 F-99.1 F 86-89 20-21 141-158/70-90 GENERAL: The patient is awake, alert, and fully oriented, in no acute distress. HEAD: Normal with no signs of trauma. EYES: PERRL, extraocular movements intact, sclera anicteric, conjunctiva clear. No ptosis. ENT: Ears normal, nares patent, oropharynx clear without exudates, moist mucous membranes. NECK: Trachea midline, full range of motion, supple. LUNGS: Breath sounds equal, clear to auscultation bilaterally HEART: Regular rate and rhythm, ABDOMEN: large obese abdomen EXTREMITIES: right foot cellulitis, redness, pain of foot, anterior 2nd and 3rd toe with superficial ulcer with skin slough, on bactroban - s/p debridement on NEUROLOGICAL: Normal speech, steady gait PSYCH: Normal mood, normal affect. Laboratory Results - last 24 hr 05/10/18 05/10/18 05/10/18 11:37 17:09 21:19 WBC RBC Hgb Hct MCV MCH MCHC RDW Plt Count MPV Absolute Neuts (auto) Neutrophils % Lymphocytes % Monocytes % Eosinophils % Basophils % Nucleated RBC % Sodium Potassium Chloride Carbon Dioxide Anion Gap BUN Creatinine Creat Clearance w eGFR POC Glucometer 181 195 271 Random Glucose Calcium Magnesium Total Bilirubin AST ALT Alkaline Phosphatase Total Protein Albumin 05/11/18 05/11/18 05/11/18 05:46 06:30 06:30 WBC 8.6 RBC 3.70 L Hgb 10.0 L Hct 29.6 L MCV 80.2 MCH 26.9 MCHC 33.6 RDW 13.4 Plt Count 408 MPV 7.1 L Absolute Neuts (auto) 5.8 Neutrophils % 68.0 Lymphocytes % 20.8 Monocytes % 8.5 Eosinophils % 2.3 Basophils % 0.4 Nucleated RBC % 0 Sodium 142 Potassium 3.7 Chloride 106 Carbon Dioxide 27 Anion Gap 9 BUN 9 Creatinine 1.6 H Creat Clearance w eGFR 46.17 POC Glucometer 204 Random Glucose 180 H D Calcium 8.2 L Magnesium 1.8 Total Bilirubin 0.3 AST 36 D ALT 66 Alkaline Phosphatase 150 H D Total Protein 6.7 Albumin 2.2 L Active Medications Generic Name Dose Route Start Last Admin Trade Name Freq PRN Reason Stop Dose Admin Al Hydroxide/Mg Hydroxide 30 ml 05/09/18 18:00 05/11/18 06:32 Mylanta Oral Suspension - PO 30 ml Q6HPO [facility] Administration Atorvastatin Calcium 80 mg 05/09/18 22:00 05/10/18 21:31 Lipitor - PO 80 mg HS [facility] Administration Docusate Sodium 100 mg 05/10/18 14:00 05/11/18 06:31 Colace - PO Not Given TID [facility] Heparin Sodium (Porcine) 5,000 unit 05/09/18 22:00 05/11/18 06:30 Heparin - SQ Not Given TID [facility] Piperacillin Sod/Tazobactam 100 mls @ 200 mls/hr 05/09/18 18:00 05/11/18 09: 25 Sod 3.375 gm/ Sodium Chloride IVPB 200 mls/hr Q8H-IV [facility] Administration Protocol Sodium Chloride 1,000 mls @ 75 mls/hr 05/09/18 16:19 05/11/18 01:16 Normal Saline - IV 75 mls/hr ASDIR [facility] Administration Vancomycin HCl 1,500 mg/ 500 mls @ 250 mls/hr 05/10/18 12:00 05/10/18 13:03 Sodium Chloride IVPB 250 mls/hr Q24H [facility] Administration Protocol Insulin Aspart 1 vial 05/09/18 16:30 05/11/18 06:20 Novolog Vial Sliding Scale - SQ 1 vial ACHS [facility] Administration Protocol Insulin Detemir 20 units 05/09/18 22:00 05/11/18 06:19 Levemir Vial SQ 20 units BID@0700,2200 [facility] Administration Metoprolol Succinate 100 mg 05/10/18 10:00 05/11/18 09:25 Toprol Xl - PO 100 mg DAILY [facility] Administration Multivitamins/Minerals/Vitamin C 1 tab 05/10/18 10:00 05/11/18 09:25 Tab-A-Vit - PO 1 tab DAILY [facility] Administration Mupirocin 1 applic 05/09/18 22:00 05/11/18 09:20 Bactroban 2% Cream - TP Not Given BID [facility] Nifedipine 90 mg 05/10/18 10:00 05/11/18 09:25 Procardia Xl - PO 90 mg DAILY [facility] Administration Oxycodone HCl 5 mg 05/09/18 16:19 05/10/18 04:26 Roxicodone - PO 5 mg Q6H PRN Administration PAIN LEVEL 7 - 10 Polyethylene Glycol 17 gm 05/10/18 10:00 05/11/18 09:19 Miralax (For Daily Use) - PO Not Given DAILY [facility] Valsartan 320 mg 05/10/18 10:00 05/11/18 09:25 Diovan - PO 320 mg DAILY [facility] Administration ASSESSMENT/PLAN: Patient is a 47 year old male with a significant past medical history of sleep apnea, hypertension, hyperlipidemia and diabetes. He presented to the ED on 05/05 with sepsis secondary to a right diabetic foot infection. 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 . ID: Cellulitis of right foot after chemical exposure of foot at work: Right foot diabetic foot infection and edema, failed outpatient PO antibiotics: On Vancomycin and Zosyn per ID. Leukocytosis improved. MRI of right foot shows extensive edema, no osteo. ID and podiatry following. s/p I&D on 05/09/2018, dressing c/d/i. Renal: DANILO, improving on ivf. Diovan resumed. Kidney ultrasound shows no acute pathology. Renal following. Card: Hypertension, chronic: BP improving, Diovan restarted. Procardia 60mg daily. Endocrine: Elevated BGMS/Diabetes: improving. On Levemir 20 units bid and sliding scale. Patient to be taught how to use a SS for home use. Medications confirmed with his pharmacy (on humalin R and victoza). Will discharge with SS. Morbid Obesity: BMI 42, poor dietary intake and non compliance with diet. Dietary consulted and following. Pulm: Sleep apnea, on cpap GI: Elevated ast/alt: resolving. fen ns @ 75cc monitor electrolytes diabetic diet prophy: heparin TID Visit type - Emergency Visit Emergency Visit: Yes ED Registration Date: 05/05/18 Care time: The patient presented to the Emergency Department on the above date and was hospitalized for further evaluation of their emergent condition. - New Patient This patient is new to me today: No - Critical Care Critical Care patient: No - Discharge Referral Referred to [facility] No
[2018-05-11] MEDS ORDERED: INSULIN (NOVOLOG) ASPART 100 UNITS/ML 10ML VIAL ONE ×2 (11:25→17:03)
[2018-05-11] MEDS ORDERED: INSULIN (LEVEMIR) 100 UNITS/ML UNITS SQ ONE (12:25)
[2018-05-11] MEDS: VANCOMYCIN 1,500 MG in SODIUM CHLORIDE 500 ML IVPB SCH (12:41)
--- NOTE | 2018-05-11 14:22 | PN ---
Progress Note, Physician History of Present Illness: Pt seen and examined at bedside. He is awake and alert. He denies shortness of breath. - Current Medication List Current Medications: Active Medications Al Hydroxide/Mg Hydroxide (Mylanta Oral Suspension -) 30 ml PO Q6HPO [facility] Last Admin: 05/11/18 12:41 Dose: 30 ml Atorvastatin Calcium (Lipitor -) 80 mg PO HS [facility] Last Admin: 05/10/18 21:31 Dose: 80 mg Docusate Sodium (Colace -) 100 mg PO TID [facility] Last Admin: 05/11/18 13:25 Dose: Not Given Heparin Sodium (Porcine) (Heparin -) 5,000 unit SQ TID [facility] Last Admin: 05/11/18 13:27 Dose: 5,000 unit Piperacillin Sod/Tazobactam (Sod 3.375 gm/ Sodium Chloride) 100 mls @ 200 mls/ hr IVPB Q8H-IV [facility]; Protocol Last Admin: 05/11/18 09:25 Dose: 200 mls/hr Sodium Chloride (Normal Saline -) 1,000 mls @ 75 mls/hr IV ASDIR [facility] Last Admin: 05/11/18 01:16 Dose: 75 mls/hr Vancomycin HCl 1,500 mg/ (Sodium Chloride) 500 mls @ 250 mls/hr IVPB Q24H [facility]; Protocol Last Admin: 05/11/18 12:41 Dose: 250 mls/hr Insulin Aspart (Novolog Vial Sliding Scale -) 1 vial SQ ACHS [facility]; Protocol Last Admin: 05/11/18 11:26 Dose: 6 units Insulin Detemir (Levemir Vial) 20 units SQ BID@0700,2200 [facility] Last Admin: 05/11/18 06:19 Dose: 20 units Metoprolol Succinate (Toprol Xl -) 100 mg PO DAILY [facility] Last Admin: 05/11/18 09:25 Dose: 100 mg Multivitamins/Minerals/Vitamin C (Tab-A-Vit -) 1 tab PO DAILY [facility] Last Admin: 05/11/18 09:25 Dose: 1 tab Mupirocin (Bactroban 2% Cream -) 1 applic TP BID [facility] Last Admin: 05/11/18 09:20 Dose: Not Given Nifedipine (Procardia Xl -) 60 mg PO DAILY [facility] Oxycodone HCl (Roxicodone -) 5 mg PO Q6H PRN PRN Reason: PAIN LEVEL 7 - 10 Last Admin: 05/10/18 04:26 Dose: 5 mg Polyethylene Glycol (Miralax (For Daily Use) -) 17 gm PO DAILY [facility] Last Admin: 05/11/18 09:19 Dose: Not Given Valsartan (Diovan -) 320 mg PO DAILY [facility] Last Admin: 05/11/18 09:25 Dose: 320 mg - Objective Vital Signs: Vital Signs Temperature 99.1 F 05/11/18 08:56 Pulse Rate 86 05/11/18 13:53 Respiratory Rate 20 05/11/18 08:56 Blood Pressure 143/77 05/11/18 13:53 O2 Sat by Pulse Oximetry (%) 96 05/11/18 09:00 Constitutional: Yes: Calm Eyes: Yes: Conjunctiva Clear HENT: Yes: Atraumatic Neck: Yes: Supple Cardiovascular: Yes: S1, S2 Respiratory: Yes: CTA Bilaterally Gastrointestinal: Yes: Soft, Abdomen, Obese Genitourinary: Yes: WNL Musculoskeletal: Yes: WNL Edema: LLE: Trace, RLE: Trace Wound/Incision: Yes: Dressing Dry and Intact Neurological: Yes: Oriented Psychiatric: Yes: Oriented Labs: CBC, BMP 05/11/18 06:30 05/11/18 06:30 INR, PTT INR 1.13 (0.82-1.09) 05/05/18 09:56 Problem List - Problems (1) CKD (chronic kidney disease) Code(s): N18.9 - CHRONIC KIDNEY DISEASE, UNSPECIFIED (2) Cellulitis in diabetic foot Code(s): E11.628 - TYPE 2 DIABETES MELLITUS WITH OTHER SKIN COMPLICATIONS; L03.119 - CELLULITIS OF UNSPECIFIED PART OF LIMB (3) Sepsis Code(s): A41.9 - SEPSIS, UNSPECIFIED ORGANISM Qualifiers: Sepsis type: sepsis due to unspecified organism Qualified Code(s): A41.9 - Sepsis, unspecified organism Assessment/Plan Current Medications Generic Name Dose Route Start Last Admin Trade Name Freq PRN Reason Stop Dose Admin Al Hydroxide/Mg Hydroxide 30 ml 05/09/18 18:00 05/11/18 12:41 Mylanta Oral Suspension - PO 30 ml Q6HPO [facility] Administration Atorvastatin Calcium 80 mg 05/09/18 22:00 05/10/18 21:31 Lipitor - PO 80 mg HS [facility] Administration Docusate Sodium 100 mg 05/10/18 14:00 05/11/18 13:25 Colace - PO Not Given TID [facility] Heparin Sodium (Porcine) 5,000 unit 05/09/18 22:00 05/11/18 13:27 Heparin - SQ 5,000 unit TID [facility] Administration Piperacillin Sod/Tazobactam 100 mls @ 200 mls/hr 05/09/18 18:00 05/11/18 09: 25 Sod 3.375 gm/ Sodium Chloride IVPB 200 mls/hr Q8H-IV [facility] Administration Protocol Sodium Chloride 1,000 mls @ 75 mls/hr 05/09/18 16:19 05/11/18 01:16 Normal Saline - IV 75 mls/hr ASDIR [facility] Administration Vancomycin HCl 1,500 mg/ 500 mls @ 250 mls/hr 05/10/18 12:00 05/11/18 12:41 Sodium Chloride IVPB 250 mls/hr Q24H [facility] Administration Protocol Insulin Aspart 1 vial 05/09/18 16:30 05/11/18 11:26 Novolog Vial Sliding Scale - SQ 6 units ACHS [facility] Administration Protocol Insulin Detemir 20 units 05/09/18 22:00 05/11/18 06:19 Levemir Vial SQ 20 units BID@0700,2200 [facility] Administration Metoprolol Succinate 100 mg 05/10/18 10:00 05/11/18 09:25 Toprol Xl - PO 100 mg DAILY [facility] Administration Multivitamins/Minerals/Vitamin C 1 tab 05/10/18 10:00 05/11/18 09:25 Tab-A-Vit - PO 1 tab DAILY [facility] Administration Mupirocin 1 applic 05/09/18 22:00 05/11/18 09:20 Bactroban 2% Cream - TP Not Given BID [facility] Nifedipine 60 mg 05/12/18 10:00 Procardia Xl - PO DAILY [facility] Oxycodone HCl 5 mg 05/09/18 16:19 05/10/18 04:26 Roxicodone - PO 5 mg Q6H PRN Administration PAIN LEVEL 7 - 10 Polyethylene Glycol 17 gm 05/10/18 10:00 05/11/18 09:19 Miralax (For Daily Use) - PO Not Given DAILY [facility] Valsartan 320 mg 05/10/18 10:00 05/11/18 09:25 Diovan - PO 320 mg DAILY [facility] Administration Laboratory Tests 05/05/18 05/06/18 05/08/18 20:30 06:30 12:34 Protein/Creatinin Ratio 2.698 PRITI M-Luis Not observed MARIE Screen Negative Hep B Core IgM Ab Negative Hepatitis Be Antibody Negative Hepatitis Be Antigen Negative HCV Quantitation Hcv not detected Impression 1. CKD 2. proteinuria 3. microscopic hematuria 4. HTN 5. DM 6. diabetic retinopathy 7. cataracts 8. cellulitis 9. CAD 10. obesity 11. possible irritation from chemical spilled on his foot at work Plan - cont to monitor renal function - can stop fluids - cont valsartan - will complete proteinuria workup as outpt - podiatry follow up - abx per ID - will follow Dr Graham
--- NOTE | 2018-05-11 16:10 | PN ---
Progress Note, Physician History of Present Illness: POD #2 No C/O R foot pain Persistant swelling Erythema LE improved Temps down - Afebrile WBC now WNL Blood c/s micrococcus MRI c/w cellulitis - Current Medication List Current Medications: Active Medications Al Hydroxide/Mg Hydroxide (Mylanta Oral Suspension -) 30 ml PO Q6HPO [facility] Last Admin: 05/11/18 12:41 Dose: 30 ml Atorvastatin Calcium (Lipitor -) 80 mg PO HS [facility] Last Admin: 05/10/18 21:31 Dose: 80 mg Docusate Sodium (Colace -) 100 mg PO TID [facility] Last Admin: 05/11/18 13:25 Dose: Not Given Heparin Sodium (Porcine) (Heparin -) 5,000 unit SQ TID [facility] Last Admin: 05/11/18 13:27 Dose: 5,000 unit Piperacillin Sod/Tazobactam (Sod 3.375 gm/ Sodium Chloride) 100 mls @ 200 mls/ hr IVPB Q8H-IV [facility]; Protocol Last Admin: 05/11/18 09:25 Dose: 200 mls/hr Sodium Chloride (Normal Saline -) 1,000 mls @ 75 mls/hr IV ASDIR [facility] Last Admin: 05/11/18 01:16 Dose: 75 mls/hr Vancomycin HCl 1,500 mg/ (Sodium Chloride) 500 mls @ 250 mls/hr IVPB Q24H [facility]; Protocol Last Admin: 05/11/18 12:41 Dose: 250 mls/hr Insulin Aspart (Novolog Vial Sliding Scale -) 1 vial SQ ACHS [facility]; Protocol Last Admin: 05/11/18 11:26 Dose: 6 units Insulin Detemir (Levemir Vial) 20 units SQ BID@0700,2200 [facility] Last Admin: 05/11/18 06:19 Dose: 20 units Metoprolol Succinate (Toprol Xl -) 100 mg PO DAILY [facility] Last Admin: 05/11/18 09:25 Dose: 100 mg Multivitamins/Minerals/Vitamin C (Tab-A-Vit -) 1 tab PO DAILY [facility] Last Admin: 05/11/18 09:25 Dose: 1 tab Mupirocin (Bactroban 2% Cream -) 1 applic TP BID [facility] Last Admin: 05/11/18 09:20 Dose: Not Given Nifedipine (Procardia Xl -) 60 mg PO DAILY [facility] Oxycodone HCl (Roxicodone -) 5 mg PO Q6H PRN PRN Reason: PAIN LEVEL 7 - 10 Last Admin: 05/10/18 04:26 Dose: 5 mg Polyethylene Glycol (Miralax (For Daily Use) -) 17 gm PO DAILY [facility] Last Admin: 05/11/18 09:19 Dose: Not Given Valsartan (Diovan -) 320 mg PO DAILY [facility] Last Admin: 05/11/18 09:25 Dose: 320 mg - Objective Vital Signs: Vital Signs Temperature 99.1 F 05/11/18 08:56 Pulse Rate 86 05/11/18 13:53 Respiratory Rate 20 05/11/18 08:56 Blood Pressure 143/77 05/11/18 13:53 O2 Sat by Pulse Oximetry (%) 96 05/11/18 09:00 Constitutional: Yes: No Distress Cardiovascular: Yes: Regular Rate and Rhythm, S1, S2 Respiratory: Yes: CTA Bilaterally Gastrointestinal: Yes: Normal Bowel Sounds, Soft. No: Tenderness Extremities: Yes: Other (decreased R LE/ foot erythema/ warmth. No wound drainage) Labs: CBC, BMP 05/11/18 06:30 05/11/18 06:30 INR, PTT INR 1.13 (0.82-1.09) 05/05/18 09:56 Assessment/Plan Cellulitis/ abscess R foot/ LE S/P I&D POD #2 +BC c/w contaminant Fever/ leukocytosis improved Azotemia Repeat BC no growth Continue vancomycin/ zosyn Await c/s
--- NOTE | 2018-05-11 16:18 | PATH ---
Surgical Pathology Report Patient Name: HARISH HOLLOWAY Med. Rec. #: [id number] /Age/Gender: 1970 (Age: 47) / M Account: [id number] Location: [address] [place] [address]/[facility] Taken: 05/09/2018 Received: 05/10/2018 Reported: 05/11/2018 Physicians: LOURDES Wilder M.D. Specimen(s) Received RIGHT FOOT ABCESS Clinical History Diabetes foot infection, sepsis, cellulitis Final Diagnosis RIGHT FOOT ABSCESS, EXCISION: FIBROADIPOSE TISSUE SHOWING SEVERE ACUTE AND CHRONIC INFLAMMATION WITH ABSCESS FORMATION. Electronically Signed Fredrick Emmanuel M.D. Gross Description Received in formalin, labeled "right foot abscess" are multiple of brown, irregular portions of soft tissue measuring 1.5 x 1.5 x 0.4 cm in aggregate. The specimen is submitted in toto in one cassette. SCARLETT/05/10/2018 dodie/05/10/2018
[2018-05-11] MEDS: ATORVASTATIN CA 80 MG TABLET (FP) PO SCH (21:25)
[2018-05-11] MEDS: oxyCODONE HCL 5 MG TABLET PO PRN (23:28)
[2018-05-12] MEDS: MAG HYDROX/AL HYDROX/SIMETH 30 ML UNIT-DOSE CUP PO SCH ×4 (00:11→17:00)
[2018-05-12] MEDS ORDERED: PIPERACILLIN/TAZOBACTAM 3.375 GM VIAL IVPB ONE ×2 (01:32→09:54)
[2018-05-12] MEDS ORDERED: SODIUM CHLORIDE 100 ML IVPB ONE ×2 (01:33→09:55)
[2018-05-12] MEDS: PIPERACILLIN/TAZOB 3.375 GM 3.375 GM in SODIUM CHLORIDE 100 ML IVPB SCH ×2 (01:38→10:31)
[2018-05-12] MEDS: HEPARIN NA (PORCINE) 5,000 UNITS/ML 1ML VIAL SQ SCH ×4 (06:09→23:31)
[2018-05-12] MEDS: DOCUSATE SODIUM 100 MG CAPSULE (FP) PO SCH ×3 (06:09→23:07)
[2018-05-12] MEDS: INSULIN (LEVEMIR) 100 UNITS/ML UNITS SQ SCH ×2 (06:13→23:03)
[2018-05-12] MEDS: INSULIN SLIDING SCALE (NOVOLOG) 1 VIAL SQ SCH ×4 (06:13→23:16)
[2018-05-12] MEDS ORDERED: INSULIN (NOVOLOG) ASPART 100 UNITS/ML 10ML VIAL ONE ×3 (07:40→21:52)
[2018-05-12] MEDS ORDERED: INSULIN (LEVEMIR) 100 UNITS/ML UNITS SQ ONE (07:41)
[2018-05-12] MEDS ORDERED: PT OWN MED DRAWER 7, Y5N ONE ×2 (09:54→22:52)
[2018-05-12] MEDS: VALSARTAN 160 MG TABLET (UD) PO SCH (10:30)
[2018-05-12] MEDS: NIFEdipine E.R 60 MG TABLET (UD) PO SCH (10:31)
[2018-05-12] MEDS: MULTIVITAMINS (DAILY MVI) TABLET (FP) PO SCH (10:31)
[2018-05-12] MEDS: POLYETHYLENE GLYCOL 3350 119 GM BTL PO SCH (10:32)
[2018-05-12] MEDS: MUPIROCIN CA 2% TOPICAL CREAM 15 GM TUBE TP SCH ×2 (10:34→23:06)
[2018-05-12] MEDS: VANCOMYCIN 1,500 MG in SODIUM CHLORIDE 500 ML IVPB SCH (11:53)
--- NOTE | 2018-05-12 12:07 | PN ---
Progress Note, Physician History of Present Illness: POD # 3 No C/O R foot pain Swelling ,erythema LE improved Temps down - Afebrile Blood c/s micrococcus( contaminant) Wound c/s MRSA MRI c/w cellulitis - Current Medication List Current Medications: Active Medications Al Hydroxide/Mg Hydroxide (Mylanta Oral Suspension -) 30 ml PO Q6HPO [facility] Last Admin: 05/12/18 11:52 Dose: Not Given Atorvastatin Calcium (Lipitor -) 80 mg PO HS [facility] Last Admin: 05/11/18 21:25 Dose: 80 mg Docusate Sodium (Colace -) 100 mg PO TID [facility] Last Admin: 05/12/18 06:09 Dose: Not Given Heparin Sodium (Porcine) (Heparin -) 5,000 unit SQ TID [facility] Last Admin: 05/12/18 06:09 Dose: Not Given Piperacillin Sod/Tazobactam (Sod 3.375 gm/ Sodium Chloride) 100 mls @ 200 mls/ hr IVPB Q8H-IV [facility]; Protocol Last Admin: 05/12/18 10:31 Dose: 200 mls/hr Sodium Chloride (Normal Saline -) 1,000 mls @ 75 mls/hr IV ASDIR [facility] Last Admin: 05/11/18 21:22 Dose: 75 mls/hr Vancomycin HCl 1,500 mg/ (Sodium Chloride) 500 mls @ 250 mls/hr IVPB Q24H [facility]; Protocol Last Admin: 05/12/18 11:53 Dose: 250 mls/hr Insulin Aspart (Novolog Vial Sliding Scale -) 1 vial SQ ACHS [facility]; Protocol Last Admin: 05/12/18 10:37 Dose: 10 units Insulin Detemir (Levemir Vial) 20 units SQ BID@0700,2200 [facility] Last Admin: 05/12/18 06:13 Dose: 20 units Metoprolol Succinate (Toprol Xl -) 100 mg PO DAILY [facility] Last Admin: 05/12/18 10:30 Dose: 100 mg Multivitamins/Minerals/Vitamin C (Tab-A-Vit -) 1 tab PO DAILY [facility] Last Admin: 05/12/18 10:31 Dose: 1 tab Mupirocin (Bactroban 2% Cream -) 1 applic TP BID [facility] Last Admin: 05/12/18 10:34 Dose: 1 applic Nifedipine (Procardia Xl -) 60 mg PO DAILY [facility] Last Admin: 05/12/18 10:31 Dose: 60 mg Oxycodone HCl (Roxicodone -) 5 mg PO Q6H PRN PRN Reason: PAIN LEVEL 7 - 10 Last Admin: 05/11/18 23:28 Dose: 5 mg Polyethylene Glycol (Miralax (For Daily Use) -) 17 gm PO DAILY [facility] Last Admin: 05/12/18 10:32 Dose: Not Given Valsartan (Diovan -) 320 mg PO DAILY [facility] Last Admin: 05/12/18 10:30 Dose: 320 mg - Objective Vital Signs: Vital Signs Temperature 98.4 F 05/12/18 06:00 Pulse Rate 83 05/12/18 06:00 Respiratory Rate 19 05/12/18 06:00 Blood Pressure 153/83 05/12/18 06:00 O2 Sat by Pulse Oximetry (%) 97 05/12/18 08:06 Constitutional: Yes: No Distress Eyes: Yes: Conjunctiva Clear Cardiovascular: Yes: Regular Rate and Rhythm, S1, S2 Respiratory: Yes: CTA Bilaterally Gastrointestinal: Yes: Normal Bowel Sounds, Soft. No: Tenderness Extremities: Yes: Other (marked improvement R LE swelling/ erythema) Labs: CBC, BMP 05/11/18 06:30 05/11/18 06:30 INR, PTT INR 1.13 (0.82-1.09) 05/05/18 09:56 Assessment/Plan Cellulitis/ abscess R foot/ LE S/P I&D POD # 3 Marked improvement R LE swelling /erythema + wound c/s MRSA +BC c/w contaminant Fever/ leukocytosis improved Substitute Bactrim DS po bid x 10d Outpatient podiatry follow up
--- NOTE | 2018-05-12 14:53 | PN ---
Progress Note, Physician History of Present Illness: Pt seen and examined at bedside. He is awake and alert. He denies shortness of breath. - Current Medication List Current Medications: Active Medications Al Hydroxide/Mg Hydroxide (Mylanta Oral Suspension -) 30 ml PO Q6HPO [facility] Last Admin: 05/12/18 11:52 Dose: Not Given Atorvastatin Calcium (Lipitor -) 80 mg PO HS [facility] Last Admin: 05/11/18 21:25 Dose: 80 mg Docusate Sodium (Colace -) 100 mg PO TID [facility] Last Admin: 05/12/18 13:46 Dose: Not Given Heparin Sodium (Porcine) (Heparin -) 5,000 unit SQ TID [facility] Last Admin: 05/12/18 13:46 Dose: Not Given Insulin Aspart (Novolog Vial Sliding Scale -) 1 vial SQ ACHS [facility]; Protocol Last Admin: 05/12/18 10:37 Dose: 10 units Insulin Detemir (Levemir Vial) 20 units SQ BID@0700,2200 [facility] Last Admin: 05/12/18 06:13 Dose: 20 units Metoprolol Succinate (Toprol Xl -) 100 mg PO DAILY [facility] Last Admin: 05/12/18 10:30 Dose: 100 mg Multivitamins/Minerals/Vitamin C (Tab-A-Vit -) 1 tab PO DAILY [facility] Last Admin: 05/12/18 10:31 Dose: 1 tab Mupirocin (Bactroban 2% Cream -) 1 applic TP BID [facility] Last Admin: 05/12/18 10:34 Dose: 1 applic Nifedipine (Procardia Xl -) 60 mg PO DAILY [facility] Last Admin: 05/12/18 10:31 Dose: 60 mg Oxycodone HCl (Roxicodone -) 5 mg PO Q6H PRN PRN Reason: PAIN LEVEL 7 - 10 Last Admin: 05/11/18 23:28 Dose: 5 mg Polyethylene Glycol (Miralax (For Daily Use) -) 17 gm PO DAILY [facility] Last Admin: 05/12/18 10:32 Dose: Not Given Trimethoprim/Sulfamethoxazole (Bactrim Ds -) 1 each PO BID [facility] Valsartan (Diovan -) 320 mg PO DAILY [facility] Last Admin: 05/12/18 10:30 Dose: 320 mg - Objective Vital Signs: Vital Signs Temperature 98.4 F 05/12/18 06:00 Pulse Rate 83 05/12/18 06:00 Respiratory Rate 19 05/12/18 06:00 Blood Pressure 153/83 05/12/18 06:00 O2 Sat by Pulse Oximetry (%) 97 05/12/18 08:06 Constitutional: Yes: Calm Eyes: Yes: Conjunctiva Clear HENT: Yes: Atraumatic Neck: Yes: Supple Cardiovascular: Yes: S1, S2 Respiratory: Yes: CTA Bilaterally Gastrointestinal: Yes: Soft, Abdomen, Obese Genitourinary: Yes: WNL Edema: No Integumentary: Yes: Tattoos Wound/Incision: Yes: Dressing Dry and Intact Neurological: Yes: Oriented Psychiatric: Yes: Oriented Labs: CBC, BMP 05/11/18 06:30 05/11/18 06:30 INR, PTT INR 1.13 (0.82-1.09) 05/05/18 09:56 Problem List - Problems (1) CKD (chronic kidney disease) Code(s): N18.9 - CHRONIC KIDNEY DISEASE, UNSPECIFIED (2) Cellulitis in diabetic foot Code(s): E11.628 - TYPE 2 DIABETES MELLITUS WITH OTHER SKIN COMPLICATIONS; L03.119 - CELLULITIS OF UNSPECIFIED PART OF LIMB (3) Sepsis Code(s): A41.9 - SEPSIS, UNSPECIFIED ORGANISM Qualifiers: Sepsis type: sepsis due to unspecified organism Qualified Code(s): A41.9 - Sepsis, unspecified organism Assessment/Plan Current Medications Generic Name Dose Route Start Last Admin Trade Name Freq PRN Reason Stop Dose Admin Al Hydroxide/Mg Hydroxide 30 ml 05/09/18 18:00 05/12/18 11:52 Mylanta Oral Suspension - PO Not Given Q6HPO [facility] Atorvastatin Calcium 80 mg 05/09/18 22:00 05/11/18 21:25 Lipitor - PO 80 mg HS [facility] Administration Docusate Sodium 100 mg 05/10/18 14:00 05/12/18 13:46 Colace - PO Not Given TID [facility] Heparin Sodium (Porcine) 5,000 unit 05/09/18 22:00 05/12/18 13:46 Heparin - SQ Not Given TID [facility] Insulin Aspart 1 vial 05/09/18 16:30 05/12/18 10:37 Novolog Vial Sliding Scale - SQ 10 units ACHS [facility] Administration Protocol Insulin Detemir 20 units 05/09/18 22:00 05/12/18 06:13 Levemir Vial SQ 20 units BID@0700,2200 [facility] Administration Metoprolol Succinate 100 mg 05/10/18 10:00 05/12/18 10:30 Toprol Xl - PO 100 mg DAILY [facility] Administration Multivitamins/Minerals/Vitamin C 1 tab 05/10/18 10:00 05/12/18 10:31 Tab-A-Vit - PO 1 tab DAILY [facility] Administration Mupirocin 1 applic 05/09/18 22:00 05/12/18 10:34 Bactroban 2% Cream - TP 1 applic BID [facility] Administration Nifedipine 60 mg 05/12/18 10:00 05/12/18 10:31 Procardia Xl - PO 60 mg DAILY [facility] Administration Oxycodone HCl 5 mg 05/09/18 16:19 05/11/18 23:28 Roxicodone - PO 5 mg Q6H PRN Administration PAIN LEVEL 7 - 10 Polyethylene Glycol 17 gm 05/10/18 10:00 05/12/18 10:32 Miralax (For Daily Use) - PO Not Given DAILY [facility] Trimethoprim/Sulfamethoxazole 1 each 05/12/18 22:00 Bactrim Ds - PO BID [facility] Valsartan 320 mg 05/10/18 10:00 05/12/18 10:30 Diovan - PO 320 mg DAILY [facility] Administration Impression 1. CKD 2. proteinuria 3. microscopic hematuria 4. HTN 5. DM 6. diabetic retinopathy 7. cataracts 8. cellulitis 9. CAD 10. obesity 11. possible irritation from chemical spilled on his foot at work Plan - renal function stable - outpt follow up for workup - d/c planning - discussed with medical team - abx per ID - will follow PRN Dr Graham
--- NOTE | 2018-05-12 16:10 | PN ---
Physical Exam: SUBJECTIVE: Patient seen and examined. Denies pain, fever, chills. explained MRSA isolation. Eager to go home OBJECTIVE: Vital Signs Period Temp Pulse Resp BP Sys/Freitas Pulse Ox Last 24 Hr 98.2 F-98.4 F 82-99 19-20 149-153/82-92 97-97 PE Neuro: alert, awake, cn 2-12intact Pulm: CTAB CV: S1 s2 rrr abd: s nt nd + bs Ext: R foot with sutures, draining, swelling, no odor Laboratory Results - last 24 hr 05/11/18 05/11/18 05/12/18 16:22 21:24 06:05 POC Glucometer 322 260 193 Vancomycin Pre-Dose 05/12/18 05/12/18 05/12/18 10:35 10:45 15:43 POC Glucometer 251 285 Vancomycin Pre-Dose 8.68 D Active Medications Generic Name Dose Route Start Last Admin Trade Name Freq PRN Reason Stop Dose Admin Al Hydroxide/Mg Hydroxide 30 ml 05/09/18 18:00 05/12/18 11:52 Mylanta Oral Suspension - PO Not Given Q6HPO [facility] Atorvastatin Calcium 80 mg 05/09/18 22:00 05/11/18 21:25 Lipitor - PO 80 mg HS [facility] Administration Docusate Sodium 100 mg 05/10/18 14:00 05/12/18 13:46 Colace - PO Not Given TID [facility] Heparin Sodium (Porcine) 5,000 unit 05/09/18 22:00 05/12/18 13:46 Heparin - SQ Not Given TID [facility] Insulin Aspart 1 vial 05/09/18 16:30 05/12/18 15:44 Novolog Vial Sliding Scale - SQ 10 units ACHS [facility] Administration Protocol Insulin Detemir 20 units 05/09/18 22:00 05/12/18 06:13 Levemir Vial SQ 20 units BID@0700,2200 [facility] Administration Metoprolol Succinate 100 mg 05/10/18 10:00 05/12/18 10:30 Toprol Xl - PO 100 mg DAILY [facility] Administration Multivitamins/Minerals/Vitamin C 1 tab 05/10/18 10:00 05/12/18 10:31 Tab-A-Vit - PO 1 tab DAILY [facility] Administration Mupirocin 1 applic 05/09/18 22:00 05/12/18 10:34 Bactroban 2% Cream - TP 1 applic BID [facility] Administration Nifedipine 60 mg 05/12/18 10:00 05/12/18 10:31 Procardia Xl - PO 60 mg DAILY [facility] Administration Oxycodone HCl 5 mg 05/09/18 16:19 05/11/18 23:28 Roxicodone - PO 5 mg Q6H PRN Administration PAIN LEVEL 7 - 10 Polyethylene Glycol 17 gm 05/10/18 10:00 05/12/18 10:32 Miralax (For Daily Use) - PO Not Given DAILY [facility] Trimethoprim/Sulfamethoxazole 1 each 05/12/18 22:00 Bactrim Ds - PO BID [facility] Valsartan 320 mg 05/10/18 10:00 05/12/18 10:30 Diovan - PO 320 mg DAILY [facility] Administration Assessment: 47 year old male admitted with diabetic foot ulcer and R foot cellulitis Plan: 1. R foot cellulitis, chemical spill - Wound cx MRSA + - Switch to bactrim ds x 10 days once home - Awaiting approval for [facility] services - Podiatry follow up 2. DANILO - Outpt follow up for completion of proteinuria work up - Cont ARB 3. HTN - Diovan, procardia 4. DM II - levemir 20units BID - ISS, BGM ACHS 5. Sleep apnea - CPAP Problem List - Problems (1) Cellulitis in diabetic foot Code(s): E11.628 - TYPE 2 DIABETES MELLITUS WITH OTHER SKIN COMPLICATIONS; L03.119 - CELLULITIS OF UNSPECIFIED PART OF LIMB (2) Diabetic foot infection Code(s): E11.628 - TYPE 2 DIABETES MELLITUS WITH OTHER SKIN COMPLICATIONS; L08.9 - LOCAL INFECTION OF THE SKIN AND SUBCUTANEOUS TISSUE, UNSP (3) Sepsis Code(s): A41.9 - SEPSIS, UNSPECIFIED ORGANISM Qualifiers: Sepsis type: sepsis due to unspecified organism Qualified Code(s): A41.9 - Sepsis, unspecified organism Visit type - Emergency Visit Emergency Visit: Yes ED Registration Date: 05/05/18 Care time: The patient presented to the Emergency Department on the above date and was hospitalized for further evaluation of their emergent condition. - New Patient This patient is new to me today: No - Critical Care Critical Care patient: No
[2018-05-12] MEDS: SULFAMETHOXAZOLE/TRIMETHOPRIM 800MG/160MG D.S. TABLET PO SCH (23:02)
[2018-05-12] MEDS: ATORVASTATIN CA 80 MG TABLET (FP) PO SCH (23:03)
[2018-05-13] MEDS: MAG HYDROX/AL HYDROX/SIMETH 30 ML UNIT-DOSE CUP PO SCH ×3 (00:13→11:32)
[2018-05-13] MEDS: DOCUSATE SODIUM 100 MG CAPSULE (FP) PO SCH (06:40)
[2018-05-13] MEDS: HEPARIN NA (PORCINE) 5,000 UNITS/ML 1ML VIAL SQ SCH (06:41)
[2018-05-13] MEDS: INSULIN SLIDING SCALE (NOVOLOG) 1 VIAL SQ SCH ×2 (06:44→11:20)
[2018-05-13] MEDS: INSULIN (LEVEMIR) 100 UNITS/ML UNITS SQ SCH (06:45)
[2018-05-13] MEDS: VALSARTAN 160 MG TABLET (UD) PO SCH (09:36)
[2018-05-13] MEDS: SULFAMETHOXAZOLE/TRIMETHOPRIM 800MG/160MG D.S. TABLET PO SCH (09:36)
[2018-05-13] MEDS: NIFEdipine E.R 60 MG TABLET (UD) PO SCH (09:36)
[2018-05-13] MEDS: MULTIVITAMINS (DAILY MVI) TABLET (FP) PO SCH (09:36)
[2018-05-13] MEDS: MUPIROCIN CA 2% TOPICAL CREAM 15 GM TUBE TP SCH (09:38)
[2018-05-13] MEDS: POLYETHYLENE GLYCOL 3350 119 GM BTL PO SCH (09:42)
--- NOTE | 2018-05-13 10:39 | DS ---
Physical Exam: SUBJECTIVE: Patient seen and examined OBJECTIVE: Vital Signs Period Temp Pulse Resp BP Sys/Freitas Pulse Ox Last 24 Hr 98 F-98.4 F 72-84 20-20 149-154/89-91 97 PHYSICAL EXAM GENERAL: The patient is awake, alert, and fully oriented, in no acute distress. HEAD: Normal with no signs of trauma. EYES: PERRL, extraocular movements intact, sclera anicteric, conjunctiva clear. ENT: Ears normal, nares patent, oropharynx clear without exudates, moist mucous membranes. NECK: Trachea midline, full range of motion, supple. LUNGS: Breath sounds equal, clear to auscultation bilaterally, no wheezes, no crackles, no accessory muscle use. HEART: Regular rate and rhythm, S1, S2 without murmur, rub or gallop. ABDOMEN: Soft, nontender, nondistended, normoactive bowel sounds, no guarding, no rebound, no hepatosplenomegaly, no masses. EXTREMITIES: 2+ pulses, warm, well-perfused, no edema. NEUROLOGICAL: Cranial nerves II through XII grossly intact. Normal speech, gait not observed. PSYCH: Normal mood, normal affect. SKIN: Warm, dry, normal turgor, no rashes or lesions noted. LABS Laboratory Results - last 24 hr 05/12/18 05/12/18 05/12/18 10:35 10:45 15:43 POC Glucometer 251 285 Vancomycin Pre-Dose 8.68 D 05/12/18 05/13/18 23:15 06:43 POC Glucometer 268 162 Vancomycin Pre-Dose HOSPITAL COURSE: Date of Admission:05/05/18 Date of Discharge: 05/13/18 Discharge Summary Reason For Visit: DIABETIC FOOT INF,TACHYCARDIA,SEPSIS,CELLULITIS FO Current Active Problems CKD (chronic kidney disease) (Acute) Cellulitis in diabetic foot (Acute) Diabetic foot infection (Acute) Sepsis (Acute) Tachycardia determined by examination of pulse (Acute) Condition: Stable - Instructions Diet, Activity, Other Instructions: Mr. Downs: Sliding scale patient is recommended to use for Humalin R blood sugar dose below 150 no insulin 101-150 4 units 151-200 6 units 201-250 8 units 251-300 10 units 301-350 12 units 351-400 14 units 400 units or greater Please administer 16 units and inform your PCP Continue the Victoza at some dosage you are on now. Please follow up with your golf club maker with 1 week and bring your discharge paper work with you. Visiting nurse is to monitor blood sugar and reinforce use of sliding scale. Wound care instructions of the right foot to be done 3 TIMES per week by himself. 1. Cleanse wound with sterile saline and apply bactroban to wound and apply sterile dressing 2. Report any redness, foul odor or drainage from this site. Patient to go to the Wound Clinic on Tuesdays to have dressing changes and wound assessment with Dr. Milian. Referrals: Jose Carlos Milian MD [Staff Physician] - 1 Week (Tuesdays) Joseline Naidu MD [Primary Care Provider] - 1 Week Disposition: HOME - Home Medications Comprehensive Discharge Medication List: Ambulatory Orders Metoprolol Succinate [Toprol XL -] 100 mg PO DAILY 10/25/14 Atorvastatin Calcium 80 mg PO HS 05/05/18 Hydrochlorothiazide [Hctz -] 25 mg PO DAILY 05/05/18 Nifedipine [Adalat cc] 60 mg PO DAILY 05/05/18 Olmesartan Medoxomil 40 mg PO DAILY 05/05/18 Alcohol Antiseptic Pads [Alcohol Prep Pads] 1 each TP ACHS #1 box 05/11/18 Docusate Sodium [Colace -] 100 mg PO TID capsule 05/11/18 Lancets [Lancets Thin] 1 each MC ACHS #1 box 05/11/18 Miscellaneous Medical Supply [Glucometer Device] 1 each SQ ASDIR #1 kit Miscellaneous Medical Supply [Glucometer Test Strips #100] 1 each SQ ASDIR #1 box 05/11/18 Mupirocin Cream [Bactroban 2% Cream -] 1 applic TP BID #1 tube 05/11/18 Sulfamethoxazole/Trimethoprim [Bactrim Ds -] 1 tab PO BID #20 tablet 05/12/18 Problem List - Problems (1) Cellulitis in diabetic foot Code(s): E11.628 - TYPE 2 DIABETES MELLITUS WITH OTHER SKIN COMPLICATIONS; L03.119 - CELLULITIS OF UNSPECIFIED PART OF LIMB (2) Diabetic foot infection Code(s): E11.628 - TYPE 2 DIABETES MELLITUS WITH OTHER SKIN COMPLICATIONS; L08.9 - LOCAL INFECTION OF THE SKIN AND SUBCUTANEOUS TISSUE, UNSP (3) Sepsis Code(s): A41.9 - SEPSIS, UNSPECIFIED ORGANISM Qualifiers: Sepsis type: sepsis due to unspecified organism Qualified Code(s): A41.9 - Sepsis, unspecified organism - Discharge Referral Referred to [facility] Med P.C.: No
[2018-05-13] MEDS ORDERED: INSULIN (NOVOLOG) ASPART 100 UNITS/ML 10ML VIAL ONE (11:20)
[2018-05-13 13:18] VITALS: BP 156/90; PULSE 85; TEMP 98.4
== END 2018-05-13 13:06 | disposition home or self-care (01) | DRG 872 ==
LOC: JER 08:40 → JERBED 10:44 → J6S 13:25
PROVIDERS: ADMIT Internal Medicine; ATTEND Nurse Practitioner Acute Care
PROC: 0H9MXZZ Drainage of Right Foot Skin, External Approach (ICD-10-PCS; principal; 2018-05-09 14:30)
DX: A41.9 Sepsis, unspecified organism (principal); L03.115 Cellulitis of right lower limb; E87.2 Acidosis; Z68.41 Body mass index [BMI] 40.0-44.9, adult; N17.9 Acute kidney failure, unspecified; L02.611 Cutaneous abscess of right foot; E11.628 Type 2 diabetes mellitus with other skin complications; E11.42 Type 2 diabetes mellitus with diabetic polyneuropathy; E11.319 Type 2 diabetes mellitus with unspecified diabetic retinopathy without macular edema; I12.9 Hypertensive chronic kidney disease with stage 1 through stage 4 chronic kidney disease, or unspecified chronic kidney disease; E11.22 Type 2 diabetes mellitus with diabetic chronic kidney disease; N18.9 Chronic kidney disease, unspecified; M19.071 Primary osteoarthritis, right ankle and foot; Z79.84 Long term (current) use of oral hypoglycemic drugs; E78.5 Hyperlipidemia, unspecified; H26.9 Unspecified cataract; R31.29 Other microscopic hematuria; I25.10 Atherosclerotic heart disease of native coronary artery without angina pectoris; Z99.89 Dependence on other enabling machines and devices; G47.30 Sleep apnea, unspecified; E66.01 Morbid (severe) obesity due to excess calories; Z91.11 Patient's noncompliance with dietary regimen
CPT/HCPCS: 36415; 71045-TC-FY; 73630-TC-RT-FY; 73718-TC; 76775-TC; 80053; 81003; 81015; 82550; 82553; 82570; 82728; 82962; 83036; 83540; 83550; 83605; 83735; 84100; 84155; 84156; 84165; 84484; 85025; 85610; 86038; 86705; 86707; 87040; 87070; 87086; 87186; 87205; 87350; 87522; 88304-TC; 93005; 93010; 93971-TC; 94010; 94660; 94760; 99285-25; G0480; J0131; J1644; J7030

== ENCOUNTER 2018-05-16 12:10 | Inpatient (IN) | payer BC ==
[2018-05-16 12:21] VITALS: BMI 41.8
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
[2018-05-16] MEDS ORDERED: VANCOMYCIN 1,000 MG in DEXTROSE 5%-WATER - 250 ML IVPB ONE (17:46)
[2018-05-16 18:32] LABS: BASO % 0.7 % (0-2.0); EOS % 1.4 % (0-4.5); HEMATOCRIT 32.2 % (35.4-49); HEMOGLOBIN 10.7 GM/dL (11.7-16.9); LYMPH % 30.8 % (8-40); MCH 26.9 pg (25.7-33.7); MCHC 33.3 g/dl (32.0-35.9); MEAN CELL VOLUME 80.8 fl (80-96); MEAN PLT VOLUME 7.1 fl (7.5-11.1); MONO % 9.1 % (3.8-10.2); PLATELET COUNT 588 K/MM3 (134-434); RBC 3.99 M/mm3 (4.00-5.60); RDW 13.8 % (11.9-15.9); WHITE BLOOD COUNT 8.2 K/mm3 (4.0-10.0)
--- NOTE | 2018-05-16 18:40 | PDOC ---
Attending Attestation - HPI HPI: 05/16/18 18:42 The patient is an obese 47 year old male with a significant past medical history of IDDM, MRSA, HTN, and HLD who presents to the ED with a chronic right foot wound infection followed by wound care. The patient was recently admitted on 05/05/18 for sepsis and was discharged 3 days ago on bactrim. Patient states he went to wound care earlier today, saw Dr. Gregg, and was sent to the ED to be admitted to the hospital. Patient states the wound on his right foot is red and warm to touch. Denies fever or chills. Denies nausea, vomiting, or diarrhea. Denies rash, jaundice, or pallor. Denies any other symptoms. Documentation prepared by Kris Hadley, acting as medical screener for Autumn Welsh MD - Physicial Exam PE: 05/16/18 18:43 GENERAL: + obese Well developed, well nourished. Awake and alert. No acute distress. HEENT: Normocephalic, atraumatic. PERRLA, EOMI. No conjunctival pallor. Sclera are non- icteric. Moist mucous membranes. Oropharynx is clear. NECK: Supple. Full ROM. No JVD. Carotid pulses 2+ and symmetric, without bruits. No thyromegaly. No lymphadenopathy. CARDIOVASCULAR: Regular rate and rhythm. No murmurs, rubs, or gallops. Distal pulses are 2+ and symmetric. PULMONARY: No evidence of respiratory distress. Lungs clear to auscultation bilaterally. No wheezing, rales or rhonchi. ABDOMINAL: Soft. Non-tender. Non-distended. No rebound or guarding. No organomegaly. Normoactive bowel sounds. MUSCULOSKELETAL Normal range of motion at all joints. No bony deformities or tenderness. No CVA tenderness. EXTREMITIES: No cyanosis. No clubbing. No calf tenderness. SKIN: + there is a wound on the right foot with sutures intact, there is a 4cm surrounding area of erythema and swelling. Patient has decreased sensation of his right toes at baseline. No rashes. No jaundice. NEUROLOGICAL: Alert, awake, appropriate. Cranial nerves 2-12 intact. No deficits to light touch and temperature in face, upper extremities and lower extremities. No motor deficits in the in face, upper extremities and lower extremities. Normoreflexic in the upper and lower extremities. Normal speech. Toes are down- going bilaterally. Gait is normal without ataxia. PSYCHIATRIC: Cooperative. Good eye contact. Appropriate mood and affect. <Kris Hadley - Last Filed: 05/16/18 18:42> - Resident Resident Name: Catina Damonelvis - ED Attending Attestation I have performed the following: I have examined & evaluated the patient, The case was reviewed & discussed with the resident, I agree w/resident's findings & plan, Exceptions are as noted - Medical Decision Making 05/16/18 19:00 Nonhealing diabetic foot wound. Admission IV antibiotics, wound care <Autumn Welsh - Last Filed: 05/16/18 19:00>
[2018-05-16] MEDS ORDERED: VANCOMYCIN 1 GRAM (PRE-DOCKED) 1,000 MG/250 ML BAG IVPB ONE (18:52)
[2018-05-16 18:56] LABS: ALBUMIN 2.9 g/dl (3.4-5.0); ALK PHOS 129 U/L (45-117); ANION GAP 9 (8-16); BLOOD UREA NITROGEN 20 mg/dL (7-18); CALCIUM 9.4 mg/dL (8.5-10.1); CHLORIDE 104 mmol/L (98-107); CO2 27 mmol/L (21-32); CREATININE 2.2 mg/dL (0.7-1.3); GLUCOSE,RANDOM 166 mg/dL (74-106); POTASSIUM 4.3 mmol/L (3.5-5.1); SGOT/AST 18 U/L (15-37); SGPT/ALT 38 U/L (12-78); SODIUM 140 mmol/L (136-145); TOT PROT 7.7 g/dl (6.4-8.2)
[2018-05-16 19:06] LABS: BILIRUBIN,TOTAL < 0.1 mg/dL (0.2-1.0)
[2018-05-16] MEDS ORDERED: SODIUM CHLORIDE 1,000 ML IV STA (19:36)
[2018-05-16] MEDS ORDERED: SODIUM CHLORIDE 0.45% 1,000 ML IV SCH (21:45)
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
[2018-05-16] MEDS ORDERED: HEPARIN NA (PORCINE) 5,000 UNITS/ML 1ML VIAL ONE (23:38)
[2018-05-16] MEDS: HEPARIN NA (PORCINE) 5,000 UNITS/ML 1ML VIAL SQ SCH (23:39)
[2018-05-17] MEDS ORDERED: SODIUM CHLORIDE 1,000 ML IV SCH (01:15)
[2018-05-17] MEDS: LINEZOLID 600 MG PREMIX BAG 600 MG/300 ML BAG IV ONE ×2 (01:40→06:15)
[2018-05-17 03:08] LABS: URINE APPEARANCE CLEAR; URINE BILIRUBIN NEGATIVE (<2.0 mg/dL); URINE COLOR COLORLESS; URINE GLUCOSE (UA) NEGATIVE (NEGATIVE); URINE KETONE NEGATIVE (NEGATIVE); URINE LEUK ESTERASE NEGATIVE (NEGATIVE); URINE NITRITE NEGATIVE (NEGATIVE); URINE UROBILINOGEN NEGATIVE mg/dL (0.2-1.0)
[2018-05-17 03:10] LABS: URINE PROTEIN 1+ (NEGATIVE)
[2018-05-17 03:15] LABS: EPI CELLS RARE /HPF (FEW)
[2018-05-17 03:28] LABS: URINE CREATININE 23.9 mg/dL (20-370)
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
[2018-05-17] MEDS: HEPARIN NA (PORCINE) 5,000 UNITS/ML 1ML VIAL SQ SCH ×3 (06:15→21:33)
[2018-05-17] MEDS ORDERED: LINEZOLID 600 MG PREMIX BAG 600 MG in PREMIX 300 IVPB SCH (06:45)
[2018-05-17] MEDS ORDERED: ALCOHOL ANTISEPTIC PADS TP SCH (07:00)
[2018-05-17 07:21] LABS: HEMATOCRIT 30.2 % (35.4-49); HEMOGLOBIN 10.1 GM/dL (11.7-16.9); MCHC 33.5 g/dl (32.0-35.9); MEAN CELL VOLUME 80.6 fl (80-96); MEAN PLT VOLUME 6.9 fl (7.5-11.1); PLATELET COUNT 531 K/MM3 (134-434); RBC 3.74 M/mm3 (4.00-5.60); RDW 13.7 % (11.9-15.9); WHITE BLOOD COUNT 7.3 K/mm3 (4.0-10.0)
[2018-05-17 08:28] LABS: ANION GAP 8 (8-16); BLOOD UREA NITROGEN 18 mg/dL (7-18); CALCIUM 8.7 mg/dL (8.5-10.1); CHLORIDE 106 mmol/L (98-107); CO2 25 mmol/L (21-32); GLUCOSE,RANDOM 214 mg/dL (74-106); MAGNESIUM 1.7 mg/dL (1.8-2.4); POTASSIUM 3.9 mmol/L (3.5-5.1); SODIUM 139 mmol/L (136-145)
[2018-05-17 08:29] LABS: CREATININE 1.9 mg/dL (0.7-1.3); PHOSPHOROUS 4.5 mg/dL (2.5-4.9)
[2018-05-17] MEDS: INSULIN SLIDING SCALE (NOVOLOG) 1 VIAL SQ SCH ×4 (08:50→21:34)
[2018-05-17] MEDS ORDERED: INSULIN (NOVOLOG) ASPART 100 UNITS/ML 10ML VIAL ONE ×3 (08:51→18:22)
[2018-05-17] MEDS ORDERED: HYDROCHLOROTHIAZIDE 25 MG TABLET (FP) PO SCH (10:00)
[2018-05-17] MEDS: NIFEdipine E.R 60 MG TABLET (UD) PO SCH (10:18)
--- NOTE | 2018-05-17 10:37 | EKG ---
Test Reason : Blood Pressure : / mmHG Vent. Rate : 073 BPM Atrial Rate : 073 BPM P-R Int : 194 ms QRS Dur : 104 ms QT Int : 394 ms P-R-T Axes : 042 -10 039 degrees QTc Int : 434 ms NORMAL SINUS RHYTHM INCOMPLETE RIGHT BUNDLE BRANCH BLOCK MINIMAL VOLTAGE CRITERIA FOR LVH, MAY BE NORMAL VARIANT NONSPECIFIC ST AND T WAVE ABNORMALITY ABNORMAL ECG WHEN COMPARED WITH ECG OF 05-MAY-2018 10:05, NO SIGNIFICANT CHANGE WAS FOUND Confirmed by YIN PEPE MD ([id number]) on 05/17/2018 10:36:47 AM Referred By: Confirmed By:YIN PEPE MD
--- NOTE | 2018-05-17 11:16 | CONSULT ---
Consult Consult Specialty:: Nephrology Reason for Consultation:: CKD - History of Present Illness Chief Complaint: sent in for foot infection History of Present Illness: Pt is a 47 year old male with pmhx of HTN, HLD, DM, proteinuria and a foot ulcer. He had cellulitis and a foot ulcer develop after having a chemical spill at work. He was discharged with wound care and abx. He was sent back to the hospital by wound care. He denies fevers or chills. He was found to have elevated creatinine and I was called to evaluate him. he is on an ARB. He says that he has been compliant with meds. - History Source History Provided By: Patient, Medical Record - Past Medical History Cardio/Vascular: Yes: HTN, Hyperlipdemia Renal/: Yes: Renal Inusuff Endocrine: Yes: Diabetes Mellitus - Past Surgical History Past Surgical History: Yes: Arthrosocopy (L shoulder 3 months ago) - Alcohol/Substance Use Hx Alcohol Use: No - Smoking History Smoking history: Never smoked Have you smoked in the past 12 months: No - Social History Usual Living Arrangement: With Spouse Home Medications - Allergies Allergies/Adverse Reactions: Allergies Allergy/AdvReac Type Severity Reaction Status Date / Time No Known Allergies Allergy Verified 05/05/18 08:42 - Home Medications Home Medications: Ambulatory Orders Metoprolol Succinate [Toprol XL -] 100 mg PO DAILY 10/25/14 Atorvastatin Calcium 80 mg PO HS 05/05/18 Hydrochlorothiazide [Hctz -] 25 mg PO DAILY 05/05/18 Nifedipine [Adalat cc] 60 mg PO DAILY 05/05/18 Olmesartan Medoxomil 40 mg PO DAILY 05/05/18 Alcohol Antiseptic Pads [Alcohol Prep Pads] 1 each TP ACHS #1 box 05/11/18 Docusate Sodium [Colace -] 100 mg PO TID capsule 05/11/18 Mupirocin Cream [Bactroban 2% Cream -] 1 applic TP BID #1 tube 05/11/18 Sulfamethoxazole/Trimethoprim [Bactrim Ds -] 1 tab PO BID #20 tablet 05/12/18 Sodium Chloride 0.9% Irrig [Sodium Chloride 0.9% Irrig. Soln 500 ml] 500 ml IR TID #2 btl 05/13/18 Family Disease History - Family Disease History Family History: Denies Review of Systems - Review of Systems Constitutional: reports: No Symptoms Eyes: reports: No Symptoms HENT: reports: No Symptoms Neck: reports: No Symptoms Cardiovascular: reports: No Symptoms Respiratory: reports: No Symptoms Gastrointestinal: reports: No Symptoms Genitourinary: reports: No Symptoms Musculoskeletal: reports: No Symptoms Integumentary: reports: No Symptoms Neurological: reports: No Symptoms Endocrine: reports: No Symptoms Psychiatric: reports: No Symptoms Physical Exam Vital Signs: Vital Signs Temperature 97.1 F L 05/17/18 08:37 Pulse Rate 82 05/17/18 08:37 Respiratory Rate 18 05/17/18 08:37 Blood Pressure 141/88 05/17/18 08:37 O2 Sat by Pulse Oximetry (%) 100 05/17/18 08:37 Constitutional: Yes: Calm, Obese Eyes: Yes: Conjunctiva Clear HENT: Yes: Atraumatic Neck: Yes: Supple Cardiovascular: Yes: S1, S2 Respiratory: Yes: CTA Bilaterally Gastrointestinal: Yes: Soft, Abdomen, Obese Renal/: Yes: WNL Musculoskeletal: Yes: WNL Extremities: Yes: WNL Edema: LLE: Trace, RLE: Trace Wound/Incision: Yes: Dressing Dry and Intact Neurological: Yes: Oriented Psychiatric: Yes: Oriented Labs: CBC, BMP 05/17/18 06:10 05/17/18 06:10 Laboratory Tests 05/10/18 05/11/18 05/16/18 06:50 06:30 17:55 Hgb 10.7 L Plt Count 588 H D BUN Creatinine 1.7 H 1.6 H Urine Protein Urine Blood 05/16/18 05/17/18 05/17/18 17:55 02:35 06:10 Hgb 10.1 L Plt Count 531 H BUN 20 H Creatinine 2.2 H Urine Protein 1+ H Urine Blood 1+ H 05/17/18 06:10 Hgb Plt Count BUN 18 Creatinine 1.9 H Urine Protein Urine Blood Problem List - Problems (1) Diabetic foot infection Code(s): E11.628 - TYPE 2 DIABETES MELLITUS WITH OTHER SKIN COMPLICATIONS; L08.9 - LOCAL INFECTION OF THE SKIN AND SUBCUTANEOUS TISSUE, UNSP (2) Blister of fifth toe of left foot Code(s): S90.425A - BLISTER (NONTHERMAL), LEFT LESSER TOE(S), INITIAL ENCOUNTER (3) CKD (chronic kidney disease) Code(s): N18.9 - CHRONIC KIDNEY DISEASE, UNSPECIFIED Assessment/Plan Current Medications Generic Name Dose Route Start Last Admin Trade Name Malcom PRN Reason Stop Dose Admin Atorvastatin Calcium 80 mg 05/17/18 22:00 Lipitor - PO HS NICKI Docusate Sodium 100 mg 05/17/18 14:00 Colace - PO TID NICKI Heparin Sodium (Porcine) 5,000 unit 05/16/18 22:15 05/17/18 06:15 Heparin - SQ 5,000 unit TID NICKI Administration Hydrochlorothiazide 25 mg 05/17/18 10:00 05/17/18 10:18 Hctz - PO 25 mg DAILY NICKI Administration Sodium Chloride 1,000 mls @ 50 mls/hr 05/16/18 21:45 05/16/18 23:39 1/2 Normal Saline IV 05/17/18 21:39 50 mls/hr ASDIR NICKI Administration Sodium Chloride 1,000 mls @ 100 mls/hr 05/17/18 01:15 05/17/18 01:41 Normal Saline - IV 100 mls/hr ASDIR NICKI Administration Linezolid 600 mg/ 300 mls @ 300 mls/hr 05/17/18 06:45 Miscellaneous IVPB Q12H NICKI Protocol Insulin Aspart 1 vial 05/17/18 07:00 05/17/18 08:50 Novolog Vial Sliding Scale - SQ 10 units ACHS NICKI Administration Protocol Metoprolol Succinate 100 mg 05/17/18 10:00 05/17/18 10:18 Toprol Xl - PO 100 mg DAILY NICKI Administration Mupirocin 1 applic 05/17/18 10:00 Bactroban 2% Cream - TP BID NICKI Nifedipine 60 mg 05/17/18 10:00 05/17/18 10:18 Procardia Xl - PO 60 mg DAILY NICKI Administration Non-Formulary Medication 500 ml 05/17/18 14:00 Sodium Chloride 0.9% Irrig IR TID NICKI Impression 1. CKD 2. proteinuria 3. microscopic hematuria 4. HTN 5. DM 6. diabetic retinopathy 7. cataracts 8. cellulitis/foot ulcer secondary to chemical spill 9. CAD 10. obesity Plan - creatinine is improved today - hold thiazide for now - hold arb - abx per ID - wound care - will follow Dr Graham
[2018-05-17 11:36] LABS: BASO % 0.7 % (0-2.0); EOS % 1.8 % (0-4.5); HEMATOCRIT 31.5 % (35.4-49); HEMOGLOBIN 10.2 GM/dL (11.7-16.9); LYMPH % 30.9 % (8-40); MCH 26.2 pg (25.7-33.7); MCHC 32.3 g/dl (32.0-35.9); MEAN CELL VOLUME 81.1 fl (80-96); MONO % 9.4 % (3.8-10.2); NEUT % 57.2 % (42.8-82.8); PLATELET COUNT 519 K/MM3 (134-434); RBC 3.88 M/mm3 (4.00-5.60); RDW 13.5 % (11.9-15.9)
[2018-05-17 11:55] LABS: CHLORIDE 107 mmol/L (98-107); POTASSIUM 4.1 mmol/L (3.5-5.1); SODIUM 142 mmol/L (136-145)
[2018-05-17 12:24] LABS: ALBUMIN 2.6 g/dl (3.4-5.0); ALK PHOS 111 U/L (45-117); ANION GAP 12 (8-16); BILIRUBIN,TOTAL 0.2 mg/dL (0.2-1.0); BLOOD UREA NITROGEN 16 mg/dL (7-18); CALCIUM 8.8 mg/dL (8.5-10.1); CO2 23 mmol/L (21-32); CREATININE 1.8 mg/dL (0.7-1.3); GLUCOSE,RANDOM 185 mg/dL (74-106); SGOT/AST 15 U/L (15-37); SGPT/ALT 31 U/L (12-78); TOT PROT 6.8 g/dl (6.4-8.2)
[2018-05-17] MEDS: MUPIROCIN CA 2% TOPICAL CREAM 15 GM TUBE TP SCH ×2 (12:34→22:45)
[2018-05-17] MEDS: DOCUSATE SODIUM 100 MG CAPSULE (FP) PO SCH ×2 (13:55→21:33)
[2018-05-17] MEDS ORDERED: SODIUM CHLORIDE 0.9% IR SCH (14:00)
--- NOTE | 2018-05-17 14:52 | PN ---
Physical Exam: SUBJECTIVE: Patient is a 47 y/o male with a history of R foot MRSA infection, DM, and HTN who is here for R foot ulcer. Patient went to the wound clinic, saw Dr. Garcia who sent him to the ED. Per patient he thought his foot was looking better, denies any complaints. Denies fevers, chills or pain. OBJECTIVE: Vital Signs Period Temp Pulse Resp BP Sys/[place] Pulse Ox Last 24 Hr 97.1 F-98 F 78-82 18-18 138-141/85-88 98-100 GENERAL: The patient is awake, alert, and fully oriented, in no acute distress. NECK: Trachea midline, full range of motion, supple. LUNGS: Breath sounds equal, clear to auscultation bilaterally, HEART: Regular rate and rhythm, S1, S2 ABDOMEN: Soft, nontender, nondistended, normoactive bowel sounds, EXTREMITIES: warm, well-perfused, no edema. PSYCH: Normal mood, normal affect. SKIN: 2 x 1 wound on dorsum of R foot, stiches in wound, surrounding area eythematous and edematous, patient able to move toes and sensation is intact Laboratory Results - last 24 hr 05/16/18 05/16/18 05/17/18 17:55 17:55 02:35 WBC 8.2 RBC 3.99 L Hgb 10.7 L Hct 32.2 L MCV 80.8 MCH 26.9 MCHC 33.3 RDW 13.8 Plt Count 588 H D MPV 7.1 L Absolute Neuts (auto) 4.8 Neutrophils % 58.0 Lymphocytes % 30.8 D Monocytes % 9.1 Eosinophils % 1.4 Basophils % 0.7 Nucleated RBC % 0 ESR Sodium 140 Potassium 4.3 Chloride 104 Carbon Dioxide 27 Anion Gap 9 BUN 20 H Creatinine 2.2 H Creat Clearance w eGFR 31.97 POC Glucometer Random Glucose 166 H Calcium 9.4 Phosphorus Magnesium 2.0 Total Bilirubin < 0.1 L AST 18 D ALT 38 D Alkaline Phosphatase 129 H D C-Reactive Protein Total Protein 7.7 Albumin 2.9 L Urine Color Colorless Urine Appearance Clear Urine pH 5.0 Ur Specific [place] 1.003 Urine Protein 1+ H Urine Glucose (UA) Negative Urine Ketones Negative Urine Blood 1+ H Urine Nitrite Negative Urine Bilirubin Negative Urine Urobilinogen Negative Ur Leukocyte Esterase Negative Urine WBC (Auto) <1 Urine RBC (Auto) <1 Ur Epithelial Cells Rare Ur Random Sodium Ur Random Potassium Ur Random Chloride Urine Creatinine 05/17/18 05/17/18 05/17/18 02:35 06:10 06:10 WBC 7.3 RBC 3.74 L Hgb 10.1 L Hct 30.2 L MCV 80.6 MCH 27.0 MCHC 33.5 RDW 13.7 Plt Count 531 H MPV 6.9 L Absolute Neuts (auto) Neutrophils % Lymphocytes % Monocytes % Eosinophils % Basophils % Nucleated RBC % ESR Sodium 139 Potassium 3.9 Chloride 106 Carbon Dioxide 25 Anion Gap 8 BUN 18 Creatinine 1.9 H Creat Clearance w eGFR 37.87 POC Glucometer Random Glucose 214 H D Calcium 8.7 Phosphorus 4.5 D Magnesium 1.7 L Total Bilirubin AST ALT Alkaline Phosphatase C-Reactive Protein Total Protein Albumin Urine Color Urine Appearance Urine pH Ur Specific [place] Urine Protein Urine Glucose (UA) Urine Ketones Urine Blood Urine Nitrite Urine Bilirubin Urine Urobilinogen Ur Leukocyte Esterase Urine WBC (Auto) Urine RBC (Auto) Ur Epithelial Cells Ur Random Sodium 49 Ur Random Potassium 2.5 Ur Random Chloride 47 Urine Creatinine 23.9 05/17/18 05/17/18 05/17/18 08:49 11:08 11:08 WBC 6.0 RBC 3.88 L Hgb 10.2 L Hct 31.5 L MCV 81.1 MCH 26.2 MCHC 32.3 RDW 13.5 Plt Count 519 H MPV 7.0 L Absolute Neuts (auto) 3.4 Neutrophils % 57.2 Lymphocytes % 30.9 Monocytes % 9.4 Eosinophils % 1.8 Basophils % 0.7 Nucleated RBC % 0 ESR Sodium 142 Potassium 4.1 Chloride 107 Carbon Dioxide 23 Anion Gap 12 BUN 16 Creatinine 1.8 H Creat Clearance w eGFR 40.30 POC Glucometer [phone] Random Glucose 185 H Calcium 8.8 Phosphorus Magnesium Total Bilirubin 0.2 AST 15 ALT 31 Alkaline Phosphatase 111 D C-Reactive Protein Total Protein 6.8 Albumin 2.6 L Urine Color Urine Appearance Urine pH Ur Specific [place] Urine Protein Urine Glucose (UA) Urine Ketones Urine Blood Urine Nitrite Urine Bilirubin Urine Urobilinogen Ur Leukocyte Esterase Urine WBC (Auto) Urine RBC (Auto) Ur Epithelial Cells Ur Random Sodium Ur Random Potassium Ur Random Chloride Urine Creatinine 05/17/18 05/17/1818 11:08 12:16 12:30 WBC RBC Hgb Hct MCV MCH MCHC RDW Plt Count MPV Absolute Neuts (auto) Neutrophils % Lymphocytes % Monocytes % Eosinophils % Basophils % Nucleated RBC % ESR 100 H Sodium Potassium Chloride Carbon Dioxide Anion Gap BUN Creatinine Creat Clearance w eGFR POC Glucometer [phone] Random Glucose Calcium Phosphorus Magnesium Total Bilirubin AST ALT Alkaline Phosphatase C-Reactive Protein 1.4 H Total Protein Albumin Urine Color Urine Appearance Urine pH Ur Specific [place] Urine Protein Urine Glucose (UA) Urine Ketones Urine Blood Urine Nitrite Urine Bilirubin Urine Urobilinogen Ur Leukocyte Esterase Urine WBC (Auto) Urine RBC (Auto) Ur Epithelial Cells Ur Random Sodium Ur Random Potassium Ur Random Chloride Urine Creatinine Active Medications Generic Name Dose Route Start Last Admin Trade Name Freq PRN Reason Stop Dose Admin Atorvastatin Calcium 80 mg 05/17/18 22:00 Lipitor - PO HS NICKI Docusate Sodium 100 mg 05/17/18 14:00 05/17/18 13:55 Colace - PO 100 mg TID NICKI Administration Heparin Sodium (Porcine) 5,000 unit 05/16/18 22:15 05/17/18 13:54 Heparin - SQ 5,000 unit TID NICKI Administration Sodium Chloride 1,000 mls @ 50 mls/hr 05/16/18 21:45 05/16/18 23:39 1/2 Normal Saline IV 05/17/18 21:39 50 mls/hr ASDIR NICKI Administration Linezolid 600 mg/ 300 mls @ 300 mls/hr 05/17/18 06:45 Miscellaneous IVPB Q12H NICKI Protocol Insulin Aspart 1 vial 05/17/18 07:00 05/17/18 12:19 Novolog Vial Sliding Scale - SQ 6 units ACHS NICKI Administration Protocol Metoprolol Succinate 100 mg 05/17/18 10:00 05/17/18 10:18 Toprol Xl - PO 100 mg DAILY NICKI Administration Mupirocin 1 applic 05/17/18 10:00 05/17/18 12:34 Bactroban 2% Cream - TP 1 applic BID NICKI Administration Nifedipine 60 mg 05/17/18 10:00 05/17/18 10:18 Procardia Xl - PO 60 mg DAILY NICKI Administration Sodium Chloride 500 ml 05/17/18 14:19 Sodium Chl 0.9% Irrigation - IRRIG TID NICKI ASSESSMENT/PLAN: Patient is a 47 y/o male with a history of R foot MRSA infection and DM who is here for R foot ulcer. #R foot Ulcer - follows at wound clinic with Dr. Rhoades, Dr. Garcia - f/u ID; Dr. Chowdary; Vancomycin 1 gm (day 1) - f/u Podiatry consults - afebrile, WBC wnl - daily wound care - blood cx pending - past MRSA positive wound cx #DM - SS for now - home meds reconciled, held for now #HTN - atorvastatin 80 mg hs - metoprolol 100 mg - nifedipine 60 mg #DVT ppx - heparin TID FEN: - 1/2 NS @ 50 - diabetic diet Dispo: Visit type - Emergency Visit Emergency Visit: Yes ED Registration Date: 05/16/18 Care time: The patient presented to the Emergency Department on the above date and was hospitalized for further evaluation of their emergent condition. - New Patient This patient is new to me today: Yes Date on this admission: 05/17/18 - Critical Care Critical Care patient: No
--- NOTE | 2018-05-17 15:19 | PN ---
Progress Note (short form) - Note Progress Note: ID Consult dictated Patient was sent to ER for admission by Dr. Gregg. For now will resume treatment of MRSA cellulitis/ abscess with vancomycin until he is evaluated by Dr. Gregg.
[2018-05-17] MEDS ORDERED: VANCOMYCIN 1 GRAM (PRE-DOCKED) 1,000 MG/250 ML BAG IVPB ONE (15:31)
--- NOTE | 2018-05-17 16:33 | PN ---
Teaching Attending Note Name of Resident: Ariela Rust ATTENDING PHYSICIAN STATEMENT I saw and evaluated the patient. I reviewed the resident's note and discussed the case with the resident. I agree with the resident's findings and plan as documented. SUBJECTIVE: Patient has no complaints. OBJECTIVE: Vital Signs Period Temp Pulse Resp BP Sys/[place] Pulse Ox Last 24 Hr 97.1 F-98 F 78-82 18-18 138-141/85-88 98-100 HEART: S1S2, RRR LUNGS: Clear ABDOMEN: Obese, soft, non-tender, non-distended, normal BS EXTREMITIES: Trace edema RLE. Wound on dorsal surface of right foot with surrounding erythema. Laboratory Results - last 24 hr 05/16/18 05/16/18 05/17/18 17:55 17:55 02:35 WBC 8.2 RBC 3.99 L Hgb 10.7 L Hct 32.2 L MCV 80.8 MCH 26.9 MCHC 33.3 RDW 13.8 Plt Count 588 H D MPV 7.1 L Absolute Neuts (auto) 4.8 Neutrophils % 58.0 Lymphocytes % 30.8 D Monocytes % 9.1 Eosinophils % 1.4 Basophils % 0.7 Nucleated RBC % 0 ESR Sodium 140 Potassium 4.3 Chloride 104 Carbon Dioxide 27 Anion Gap 9 BUN 20 H Creatinine 2.2 H Creat Clearance w eGFR 31.97 POC Glucometer Random Glucose 166 H Calcium 9.4 Phosphorus Magnesium 2.0 Total Bilirubin < 0.1 L AST 18 D ALT 38 D Alkaline Phosphatase 129 H D C-Reactive Protein Total Protein 7.7 Albumin 2.9 L Urine Color Colorless Urine Appearance Clear Urine pH 5.0 Ur Specific [place] 1.003 Urine Protein 1+ H Urine Glucose (UA) Negative Urine Ketones Negative Urine Blood 1+ H Urine Nitrite Negative Urine Bilirubin Negative Urine Urobilinogen Negative Ur Leukocyte Esterase Negative Urine WBC (Auto) <1 Urine RBC (Auto) <1 Ur Epithelial Cells Rare Ur Random Sodium Ur Random Potassium Ur Random Chloride Urine Creatinine 05/17/18 05/17/18 05/17/18 02:35 06:10 06:10 WBC 7.3 RBC 3.74 L Hgb 10.1 L Hct 30.2 L MCV 80.6 MCH 27.0 MCHC 33.5 RDW 13.7 Plt Count 531 H MPV 6.9 L Absolute Neuts (auto) Neutrophils % Lymphocytes % Monocytes % Eosinophils % Basophils % Nucleated RBC % ESR Sodium 139 Potassium 3.9 Chloride 106 Carbon Dioxide 25 Anion Gap 8 BUN 18 Creatinine 1.9 H Creat Clearance w eGFR 37.87 POC Glucometer Random Glucose 214 H D Calcium 8.7 Phosphorus 4.5 D Magnesium 1.7 L Total Bilirubin AST ALT Alkaline Phosphatase C-Reactive Protein Total Protein Albumin Urine Color Urine Appearance Urine pH Ur Specific [place] Urine Protein Urine Glucose (UA) Urine Ketones Urine Blood Urine Nitrite Urine Bilirubin Urine Urobilinogen Ur Leukocyte Esterase Urine WBC (Auto) Urine RBC (Auto) Ur Epithelial Cells Ur Random Sodium 49 Ur Random Potassium 2.5 Ur Random Chloride 47 Urine Creatinine 23.9 05/17/18 05/17/18 05/17/18 08:49 11:08 11:08 WBC 6.0 RBC 3.88 L Hgb 10.2 L Hct 31.5 L MCV 81.1 MCH 26.2 MCHC 32.3 RDW 13.5 Plt Count 519 H MPV 7.0 L Absolute Neuts (auto) 3.4 Neutrophils % 57.2 Lymphocytes % 30.9 Monocytes % 9.4 Eosinophils % 1.8 Basophils % 0.7 Nucleated RBC % 0 ESR Sodium 142 Potassium 4.1 Chloride 107 Carbon Dioxide 23 Anion Gap 12 BUN 16 Creatinine 1.8 H Creat Clearance w eGFR 40.30 POC Glucometer [phone] Random Glucose 185 H Calcium 8.8 Phosphorus Magnesium Total Bilirubin 0.2 AST 15 ALT 31 Alkaline Phosphatase 111 D C-Reactive Protein Total Protein 6.8 Albumin 2.6 L Urine Color Urine Appearance Urine pH Ur Specific [place] Urine Protein Urine Glucose (UA) Urine Ketones Urine Blood Urine Nitrite Urine Bilirubin Urine Urobilinogen Ur Leukocyte Esterase Urine WBC (Auto) Urine RBC (Auto) Ur Epithelial Cells Ur Random Sodium Ur Random Potassium Ur Random Chloride Urine Creatinine 05/17/18 05/17/18 05/17/18 11:08 12:16 12:30 WBC RBC Hgb Hct MCV MCH MCHC RDW Plt Count MPV Absolute Neuts (auto) Neutrophils % Lymphocytes % Monocytes % Eosinophils % Basophils % Nucleated RBC % ESR 100 H Sodium Potassium Chloride Carbon Dioxide Anion Gap BUN Creatinine Creat Clearance w eGFR POC Glucometer [phone] Random Glucose Calcium Phosphorus Magnesium Total Bilirubin AST ALT Alkaline Phosphatase C-Reactive Protein 1.4 H Total Protein Albumin Urine Color Urine Appearance Urine pH Ur Specific [place] Urine Protein Urine Glucose (UA) Urine Ketones Urine Blood Urine Nitrite Urine Bilirubin Urine Urobilinogen Ur Leukocyte Esterase Urine WBC (Auto) Urine RBC (Auto) Ur Epithelial Cells Ur Random Sodium Ur Random Potassium Ur Random Chloride Urine Creatinine Current Medications Generic Name Dose Route Start Last Admin Trade Name Freq PRN Reason Stop Dose Admin Atorvastatin Calcium 80 mg 05/17/18 22:00 Lipitor - PO HS NICKI Docusate Sodium 100 mg 05/17/18 14:00 05/17/18 13:55 Colace - PO 100 mg TID NICKI Administration Heparin Sodium (Porcine) 5,000 unit 05/16/18 22:15 05/17/18 13:54 Heparin - SQ 5,000 unit TID NICKI Administration Sodium Chloride 1,000 mls @ 50 mls/hr 05/16/18 21:45 05/16/18 23:39 1/2 Normal Saline IV 05/17/18 21:39 50 mls/hr ASDIR NICKI Administration Vancomycin HCl 1 gm in 200 mls @ 133.333 mls/hr 05/17/18 15:30 Vancomycin 1 Gm Premix - IVPB Q24H NICKI Protocol Insulin Aspart 1 vial 05/17/18 07:00 05/17/18 12:19 Novolog Vial Sliding Scale - SQ 6 units ACHS NICKI Administration Protocol Metoprolol Succinate 100 mg 05/17/18 10:00 05/17/18 10:18 Toprol Xl - PO 100 mg DAILY NICKI Administration Mupirocin 1 applic 05/17/18 10:00 05/17/18 12:34 Bactroban 2% Cream - TP 1 applic BID NICKI Administration Nifedipine 60 mg 05/17/18 10:00 05/17/18 10:18 Procardia Xl - PO 60 mg DAILY NICKI Administration Sodium Chloride 500 ml 05/17/18 14:19 Sodium Chl 0.9% Irrigation - IRRIG TID NICKI ASSESSMENT AND PLAN: This is a 47 year old man with a history of DM, HTN, hyperlipidemia, MRSA abscess of right foot who was sent to the ED from wound clinic for worsening of the foot wound. 1. Right foot wound, non-healing, with cellulitis - s/p incision and drainage of right foot abscess 05/09 (+) MRSA - Continue vancomycin, topical Bactroban 2. Acute kidney injury - Improving 3. Stage 3 CKD 4. Type 2 DM - Continue Novolog sliding scale 5. HTN - Continue Procardia XL, Toprol XL 6. Hyperlipidemia - Continue Lipitor 7. Morbid obesity
[2018-05-17] MEDS: VANCOMYCIN 1 GM PREMIX - 1 GM/200 ML BAG IVPB SCH (16:41)
[2018-05-17] MEDS ORDERED: HEMOQUE TEST 1 EACH EACH ONE (18:02)
--- NOTE | 2018-05-17 18:24 | CONS ---
DATE OF CONSULTATION: DATE OF DICTATION: 05/17/2018 INFECTIOUS DISEASE CONSULTATION HISTORY OF PRESENT ILLNESS: The patient is a 47-year-old diabetic male who was evaluated for cellulitis of the right lower extremity. The patient was recently admitted to [facility] from May 05 through May 17. He had developed cellulitis of the right foot after spilling a caustic cleaning substance on his foot. He developed what was likely a chemical burn injury followed by cellulitis. The patient was initially treated with vancomycin and Zosyn. He had a slow clinical improvement. An MRI was performed and showed soft tissue swelling without evidence of discrete abscess or osteomyelitis. Because of the continued erythema and swelling, an incision and drainage was performed of the soft tissue. Cultures were positive for MRSA. He clinically improved with a course of IV and vancomycin and was discharged home on p.o. Bactrim. He was evaluated in the wound care center by Dr. Brock, whose opinion was that the foot needed further antibiotic treatment and possible debridement. He was sent to the emergency room for admission. At the present time, the patient is awake and alert. He has foot pain; however, it is improved since discharge. He reports the overall appearance of the foot has improved since his discharge. He denies any purulent wound drainage, no fever or chills. PAST MEDICAL HISTORY: Positive for diabetes mellitus, hypertension, chronic kidney disease, coronary artery disease, hyperlipidemia. PAST SURGICAL HISTORY: Status post appendectomy and now incision and drainage right foot. ALLERGIES: No known allergies. MEDICATION: Metformin, Toprol, Lipitor, Keflex, Bactrim, hydrochlorothiazide, Adalat. SOCIAL HISTORY: Lives at home with his significant other. He is a nonsmoker, nondrinker. SYSTEMS REVIEW: Neurologic: No loss of consciousness, seizure activity, focal weakness. Positive for peripheral neuropathy with loss of sensation in the feet. Cardiac: Negative for chest pain or palpitations. Respiratory: Negative for cough or sputum production. Gastrointestinal: Negative vomiting or diarrhea. Genitourinary: Negative for urinary tract infection. LABORATORY DATA: White count 6.0, hematocrit 31.5, platelet count 519, BUN 18, creatinine 1.9. PHYSICAL EXAMINATION: General: On exam, he is awake and alert, he is not acutely toxic in appearance. Vital signs: Temperature 97.1, blood pressure 141/88, pulse 82 regular, respirations 18 per minute. HEENT: Sclerae anicteric. Cardiovascular: Heart sounds S1, S2. Lungs: Clear. Abdomen: Soft, nontender. Extremities: Examination of the right lower extremity, there is 1+ lower extremity edema. There is faint erythema involving the distal right lower extremity and hyperpigmented area present over the dorsum of the right foot. There is a surgical wound. There is no purulent drainage noted. No expressible pus. IMPRESSION: 1. Cellulitis of the right foot. 2. Status post incision and drainage soft tissue abscess right foot. 3. Positive wound culture, methicillin-resistant Staphylococcus aureus. 4. Azotemia. 5. Diabetes mellitus. Patient was referred to the emergency room by Dr. Gregg after being evaluated in the wound care center. He is of the opinion that he may require further surgical intervention. For now we will resume treatment of MRSA cellulitis with vancomycin, monitor vancomycin level, and serum creatinine. Podiatry followup. Thank you for the kind referral. KIRAN ROBLES M.D. [id number]
--- NOTE | 2018-05-17 21:23 | CONSULT ---
Consult - text type - Consultation Consultation Note: Patient seen in ER yesterday with his present after being sent down from [facility]. Was still in ER this AM when I was rounding. Patient has inflammed dusky looking foot compared to left. Patient did get foot wet on 05/15/18. vss, tmax 98.5 +sutures intact, +cellulitis of forefoot area, -drainage, +tender, xray report reviewed, wbc has come down to 6.0 since admission, poh=917, crp=1.4, abscess? gas? small vessel pvd? Read and appreciated Vascular exam and radiology report. Discussed with Dr. Chowdary who believes it looks better since IA. Will follow. Will re-evaluate in AM.
[2018-05-17] MEDS: ATORVASTATIN CA 80 MG TABLET (FP) PO SCH (21:33)
[2018-05-17] MEDS: SODIUM CHLORIDE 0.9% IRRIG SCH (21:40)
[2018-05-18] MEDS: DOCUSATE SODIUM 100 MG CAPSULE (FP) PO SCH ×3 (05:54→21:25)
[2018-05-18] MEDS: HEPARIN NA (PORCINE) 5,000 UNITS/ML 1ML VIAL SQ SCH ×3 (05:55→21:25)
[2018-05-18] MEDS: SODIUM CHLORIDE 0.9% IRRIG SCH ×3 (05:57→21:28)
[2018-05-18] MEDS: INSULIN SLIDING SCALE (NOVOLOG) 1 VIAL SQ SCH ×4 (06:23→21:27)
[2018-05-18] MEDS ORDERED: INSULIN (NOVOLOG) ASPART 100 UNITS/ML 10ML VIAL ONE ×2 (06:41→11:47)
[2018-05-18 07:38] LABS: HEMATOCRIT 30.2 % (35.4-49); HEMOGLOBIN 10.2 GM/dL (11.7-16.9); MCH 27.3 pg (25.7-33.7); MCHC 33.7 g/dl (32.0-35.9); MEAN PLT VOLUME 6.8 fl (7.5-11.1); PLATELET COUNT 550 K/MM3 (134-434); RBC 3.73 M/mm3 (4.00-5.60); RDW 13.9 % (11.9-15.9); WHITE BLOOD COUNT 5.3 K/mm3 (4.0-10.0)
[2018-05-18 09:14] LABS: ALBUMIN 2.8 g/dl (3.4-5.0); ANION GAP 10 (8-16); BLOOD UREA NITROGEN 19 mg/dL (7-18); CALCIUM 9.1 mg/dL (8.5-10.1); CHLORIDE 108 mmol/L (98-107); CO2 26 mmol/L (21-32); GLUCOSE,RANDOM 231 mg/dL (74-106); POTASSIUM 4.7 mmol/L (3.5-5.1); SODIUM 144 mmol/L (136-145)
[2018-05-18 09:19] LABS: ALK PHOS 120 U/L (45-117); BILIRUBIN,TOTAL 0.2 mg/dL (0.2-1.0); CREATININE 1.7 mg/dL (0.7-1.3); SGOT/AST 13 U/L (15-37); SGPT/ALT 29 U/L (12-78)
[2018-05-18] MEDS ORDERED: PT OWN MED DRAWER 7, Y5N ONE (09:28)
[2018-05-18] MEDS: NIFEdipine E.R 60 MG TABLET (UD) PO SCH (09:33)
[2018-05-18] MEDS: MUPIROCIN CA 2% TOPICAL CREAM 15 GM TUBE TP SCH ×2 (09:36→21:25)
--- NOTE | 2018-05-18 12:53 | PN ---
Progress Note (short form) - Note Progress Note: FUV right foot. Patient seen in bed. Not Happy. vss, Tmax 98.0 vsgi, +sutures intact, dusky forefoot, culture in wcc no growth. wbc=5.3, - cellulitis, xray mentions gas but no clinical signs consistent with gas, possibly air in spaces where surgery done, -drainage post op cellulitis? Abx as per ID. Betadine dressing change. Awaiting vascular consult. will follow.
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
[2018-05-18] MEDS: VANCOMYCIN 1 GM PREMIX - 1 GM/200 ML BAG IVPB SCH (15:11)
--- NOTE | 2018-05-18 15:40 | PN ---
Progress Note, Physician History of Present Illness: No c/o foot pain at rest No fever/ chills - Current Medication List Current Medications: Active Medications Atorvastatin Calcium (Lipitor -) 80 mg PO HS [facility] Last Admin: 05/17/18 21:33 Dose: 80 mg Docusate Sodium (Colace -) 100 mg PO TID [facility] Last Admin: 05/18/18 15:10 Dose: 100 mg Heparin Sodium (Porcine) (Heparin -) 5,000 unit SQ TID [facility] Last Admin: 05/18/18 15:10 Dose: 5,000 unit Vancomycin HCl (Vancomycin 1 Gm Premix -) 1 gm in 200 mls @ 133.333 mls/hr IVPB Q24H [facility]; Protocol Last Admin: 05/18/18 15:11 Dose: 133.333 mls/hr Insulin Aspart (Novolog Vial Sliding Scale -) 1 vial SQ ACHS [facility]; Protocol Last Admin: 05/18/18 11:47 Dose: 10 units Metoprolol Succinate (Toprol Xl -) 100 mg PO DAILY [facility] Last Admin: 05/18/18 09:33 Dose: 100 mg Mupirocin (Bactroban 2% Cream -) 1 applic TP BID [facility] Last Admin: 05/18/18 09:36 Dose: 1 applic Nifedipine (Procardia Xl -) 60 mg PO DAILY [facility] Last Admin: 05/18/18 09:33 Dose: 60 mg Sodium Chloride (Sodium Chl 0.9% Irrigation -) 500 ml IRRIG TID [facility] Last Admin: 05/18/18 15:11 Dose: Not Given - Objective Vital Signs: Vital Signs Temperature 98.0 F 05/18/18 10:00 Pulse Rate 73 05/18/18 10:00 Respiratory Rate 20 05/18/18 10:00 Blood Pressure 141/86 05/18/18 10:00 O2 Sat by Pulse Oximetry (%) 98 05/17/18 21:00 Constitutional: Yes: No Distress, Obese Cardiovascular: Yes: Regular Rate and Rhythm, S1, S2 Respiratory: Yes: CTA Bilaterally Gastrointestinal: Yes: Normal Bowel Sounds, Soft. No: Tenderness Extremities: Yes: Other (+ swelling, erythema dorsum R foot No drainage from surgical wound) Labs: CBC, BMP 05/18/18 07:05 05/18/18 07:05 Assessment/Plan Cellulitis R foot S/P I&D R foot abscess + wound c/s MRSA Diabetes mellitus Continue vancomycin Local wound care
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
--- NOTE | 2018-05-18 17:10 | PN ---
Physical Exam: SUBJECTIVE: Patient is a 47 y/o male with a history of R foot MRSA infection, DM, and HTN who is here for R foot ulcer. Patient went to the wound clinic, saw Dr. Garcia who sent him to the ED. Per patient he thought his foot was looking better, denies any complaints. Denies fevers, chills or pain. OBJECTIVE: Vital Signs Period Temp Pulse Resp BP Sys/Freitas Pulse Ox Last 24 Hr 98.0 F-98.5 F 73-84 20-20 138-155/84-99 97-98 GENERAL: The patient is awake, alert, and fully oriented, in no acute distress. NECK: Trachea midline, full range of motion, supple. LUNGS: Breath sounds equal, clear to auscultation bilaterally, HEART: Regular rate and rhythm, S1, S2 ABDOMEN: Soft, nontender, nondistended, normoactive bowel sounds, EXTREMITIES: warm, well-perfused, no edema. PSYCH: Normal mood, normal affect. SKIN: 2 x 1 wound on dorsum of R foot, stiches in wound, surrounding area eythematous and edematous, patient able to move toes and sensation is intact Laboratory Results - last 24 hr 05/17/18 05/17/18 05/18/18 18:15 21:29 05:56 WBC RBC Hgb Hct MCV MCH MCHC RDW Plt Count MPV Sodium Potassium Chloride Carbon Dioxide Anion Gap BUN Creatinine Creat Clearance w eGFR POC Glucometer 362.88315 311 252 Random Glucose Calcium Total Bilirubin AST ALT Alkaline Phosphatase Total Protein Albumin 05/18/18 05/18/18 05/18/18 07:05 07:05 11:42 WBC 5.3 RBC 3.73 L Hgb 10.2 L Hct 30.2 L MCV 81.0 MCH 27.3 MCHC 33.7 RDW 13.9 Plt Count 550 H MPV 6.8 L Sodium 144 Potassium 4.7 Chloride 108 H Carbon Dioxide 26 Anion Gap 10 BUN 19 H Creatinine 1.7 H Creat Clearance w eGFR 43.05 POC Glucometer 272 Random Glucose 231 H D Calcium 9.1 Total Bilirubin 0.2 AST 13 L ALT 29 Alkaline Phosphatase 120 H Total Protein 7.0 Albumin 2.8 L Active Medications Generic Name Dose Route Start Last Admin Trade Name Freq PRN Reason Stop Dose Admin Atorvastatin Calcium 80 mg 05/17/18 22:00 05/17/18 21:33 Lipitor - PO 80 mg HS [facility] Administration Docusate Sodium 100 mg 05/17/18 14:00 05/18/18 15:10 Colace - PO 100 mg TID [facility] Administration Heparin Sodium (Porcine) 5,000 unit 05/16/18 22:15 05/18/18 15:10 Heparin - SQ 5,000 unit TID [facility] Administration Vancomycin HCl 1 gm in 200 mls @ 133.333 mls/hr 05/17/18 15:30 05/18/18 15:11 Vancomycin 1 Gm Premix - IVPB 133.333 mls/hr Q24H [facility] Administration Protocol Insulin Aspart 1 vial 05/17/18 07:00 05/18/18 11:47 Novolog Vial Sliding Scale - SQ 10 units ACHS [facility] Administration Protocol Metoprolol Succinate 100 mg 05/17/18 10:00 05/18/18 09:33 Toprol Xl - PO 100 mg DAILY [facility] Administration Mupirocin 1 applic 05/17/18 10:00 05/18/18 09:36 Bactroban 2% Cream - TP 1 applic BID [facility] Administration Nifedipine 60 mg 05/17/18 10:00 05/18/18 09:33 Procardia Xl - PO 60 mg DAILY [facility] Administration Sodium Chloride 500 ml 05/17/18 14:19 05/18/18 15:11 Sodium Chl 0.9% Irrigation - IRRIG Not Given TID [facility] ASSESSMENT/PLAN: Patient is a 47 y/o male with a history of R foot MRSA infection and DM who is here for R foot ulcer. #R foot Ulcer - follows at wound clinic with Dr. Rhoades, Dr. Garcia - f/u ID; Dr. Chowdary; Vancomycin 1 gm (day 2) - f/u Podiatry consults - afebrile, WBC wnl - daily wound care - blood cx pending - past MRSA positive wound cx - Vascular surgery consult, patient can follow up with wound care - spoke with Dr. Chowdary, can discharge home with Bactrim for one week - need to f/u with podiatry - patient refusing MRI #DM - SS for now - victoza 1.8 #HTN - atorvastatin 80 mg hs - metoprolol 100 mg - nifedipine 60 mg #DVT ppx - heparin TID FEN: - 1/2 NS @ 50 - diabetic diet Dispo: f/u with podiatry, probably tomorrow Visit type - Emergency Visit Emergency Visit: No - New Patient This patient is new to me today: No - Critical Care Critical Care patient: No
--- NOTE | 2018-05-18 18:07 | PN ---
Teaching Attending Note Name of Resident: Ariela Rust ATTENDING PHYSICIAN STATEMENT I saw and evaluated the patient. I reviewed the resident's note and discussed the case with the resident. I agree with the resident's findings and plan as documented. SUBJECTIVE: Patient lying in bed, says he does not want to talk to anyone. OBJECTIVE: Vital Signs Period Temp Pulse Resp BP Sys/Freitas Pulse Ox Last 24 Hr 98.0 F-98.5 F 73-84 20-20 138-155/84-99 97-98 Examination refused Laboratory Results - last 24 hr 05/17/18 05/17/18 05/18/18 18:15 21:29 05:56 WBC RBC Hgb Hct MCV MCH MCHC RDW Plt Count MPV Sodium Potassium Chloride Carbon Dioxide Anion Gap BUN Creatinine Creat Clearance w eGFR POC Glucometer 362.83378 311 252 Random Glucose Calcium Total Bilirubin AST ALT Alkaline Phosphatase Total Protein Albumin 05/18/18 05/18/18 05/18/18 07:05 07:05 11:42 WBC 5.3 RBC 3.73 L Hgb 10.2 L Hct 30.2 L MCV 81.0 MCH 27.3 MCHC 33.7 RDW 13.9 Plt Count 550 H MPV 6.8 L Sodium 144 Potassium 4.7 Chloride 108 H Carbon Dioxide 26 Anion Gap 10 BUN 19 H Creatinine 1.7 H Creat Clearance w eGFR 43.05 POC Glucometer 272 Random Glucose 231 H D Calcium 9.1 Total Bilirubin 0.2 AST 13 L ALT 29 Alkaline Phosphatase 120 H Total Protein 7.0 Albumin 2.8 L 05/18/18 16:56 WBC RBC Hgb Hct MCV MCH MCHC RDW Plt Count MPV Sodium Potassium Chloride Carbon Dioxide Anion Gap BUN Creatinine Creat Clearance w eGFR POC Glucometer 300 Random Glucose Calcium Total Bilirubin AST ALT Alkaline Phosphatase Total Protein Albumin Current Medications Generic Name Dose Route Start Last Admin Trade Name Freq PRN Reason Stop Dose Admin Atorvastatin Calcium 80 mg 05/17/18 22:00 05/17/18 21:33 Lipitor - PO 80 mg HS [facility] Administration Docusate Sodium 100 mg 05/17/18 14:00 05/18/18 15:10 Colace - PO 100 mg TID [facility] Administration Heparin Sodium (Porcine) 5,000 unit 05/16/18 22:15 05/18/18 15:10 Heparin - SQ 5,000 unit TID [facility] Administration Vancomycin HCl 1 gm in 200 mls @ 133.333 mls/hr 05/17/18 15:30 05/18/18 15:11 Vancomycin 1 Gm Premix - IVPB 133.333 mls/hr Q24H [facility] Administration Protocol Insulin Aspart 1 vial 05/17/18 07:00 05/18/18 16:58 Novolog Vial Sliding Scale - SQ 10 units ACHS [facility] Administration Protocol Liraglutide 1.8 mg 05/19/18 07:00 Victoza - SQ DAILY@0700 [facility] Metoprolol Succinate 100 mg 05/17/18 10:00 05/18/18 09:33 Toprol Xl - PO 100 mg DAILY [facility] Administration Mupirocin 1 applic 05/17/18 10:00 05/18/18 09:36 Bactroban 2% Cream - TP 1 applic BID [facility] Administration Nifedipine 60 mg 05/17/18 10:00 05/18/18 09:33 Procardia Xl - PO 60 mg DAILY [facility] Administration Sodium Chloride 500 ml 05/17/18 14:19 05/18/18 15:11 Sodium Chl 0.9% Irrigation - IRRIG Not Given TID [facility] ASSESSMENT AND PLAN: This is a 47 year old man with a history of DM, HTN, hyperlipidemia, MRSA abscess of right foot who was sent to the ED from wound clinic for worsening of the foot wound. 1. Right foot wound, non-healing, with cellulitis - s/p incision and drainage of right foot abscess 05/09 (+) MRSA - Continue Vancomycin, topical Bactroban 2. Acute kidney injury - Improving 3. Stage 3 CKD 4. Type 2 DM, uncontrolled - Continue Novolog sliding scale - Victoza restarted 5. HTN - Continue Procardia XL, Toprol XL 6. Hyperlipidemia - Continue Lipitor 7. Morbid obesity
[2018-05-18] MEDS ORDERED: oxyCODONE HCL 5 MG TABLET PO ONE (18:30)
[2018-05-18] MEDS: ATORVASTATIN CA 80 MG TABLET (FP) PO SCH (21:25)
[2018-05-19] MEDS ORDERED: PT OWN MED DRAWER 7, Y5N ONE ×2 (06:20→07:36)
[2018-05-19] MEDS: DOCUSATE SODIUM 100 MG CAPSULE (FP) PO SCH ×2 (06:58→15:14)
[2018-05-19] MEDS: HEPARIN NA (PORCINE) 5,000 UNITS/ML 1ML VIAL SQ SCH ×2 (06:59→15:14)
[2018-05-19] MEDS: INSULIN SLIDING SCALE (NOVOLOG) 1 VIAL SQ SCH ×3 (06:59→17:33)
[2018-05-19] MEDS: SODIUM CHLORIDE 0.9% IRRIG SCH ×2 (06:59→14:52)
[2018-05-19] MEDS ORDERED: LIRAGLUTIDE 0.6 MG/0.1 ML PEN.INJCTR SQ SCH (07:00)
[2018-05-19 08:21] LABS: HEMOGLOBIN 10.1 GM/dL (11.7-16.9); MCH 26.5 pg (25.7-33.7); MCHC 32.6 g/dl (32.0-35.9); MEAN CELL VOLUME 81.3 fl (80-96); MEAN PLT VOLUME 6.9 fl (7.5-11.1); PLATELET COUNT 515 K/MM3 (134-434); RBC 3.81 M/mm3 (4.00-5.60); RDW 13.8 % (11.9-15.9); WHITE BLOOD COUNT 5.4 K/mm3 (4.0-10.0)
[2018-05-19 08:44] LABS: ANION GAP 6 (8-16); BLOOD UREA NITROGEN 19 mg/dL (7-18); CALCIUM 8.6 mg/dL (8.5-10.1); CHLORIDE 108 mmol/L (98-107); CO2 27 mmol/L (21-32); GLUCOSE,RANDOM 231 mg/dL (74-106); POTASSIUM 4.9 mmol/L (3.5-5.1); SODIUM 141 mmol/L (136-145)
[2018-05-19 08:46] LABS: CREATININE 1.6 mg/dL (0.7-1.3)
[2018-05-19] MEDS: NIFEdipine E.R 60 MG TABLET (UD) PO SCH (11:15)
[2018-05-19] MEDS: MUPIROCIN CA 2% TOPICAL CREAM 15 GM TUBE TP SCH (11:15)
[2018-05-19] MEDS ORDERED: INSULIN (NOVOLOG) ASPART 100 UNITS/ML 10ML VIAL ONE (11:40)
--- NOTE | 2018-05-19 12:41 | PN ---
Progress Note (short form) - Note Progress Note: FUV right foot. Patient seen in bed. States he does not want IVABX as per ID suggestion. vss, Tmax 98.0 vsgi, +sutures intact, dusky forefoot, wbc=5.4, -cellulitis, -drainage, read and appreciated vascular eval note, post op cellulitis? Abx as per ID. Betadine dressing change daily. will follow. blood flow adequate to forefoot.
[2018-05-19] MEDS ORDERED: PICC LINE 8 ML FLUSH PROTOCOL IVPUSH PRN (13:25)
--- NOTE | 2018-05-19 13:59 | PN ---
Progress Note, Physician History of Present Illness: No c/o foot pain at rest No fever/ chills No reports of wound drainage MRI reviewed with radiologist, case discussed with Dr Gregg - Current Medication List Current Medications: Active Medications Atorvastatin Calcium (Lipitor -) 80 mg PO HS [facility] Last Admin: 05/18/18 21:25 Dose: 80 mg Docusate Sodium (Colace -) 100 mg PO TID [facility] Last Admin: 05/19/18 06:58 Dose: 100 mg Heparin Sodium (Porcine) (Heparin -) 5,000 unit SQ TID [facility] Last Admin: 05/19/18 06:59 Dose: Not Given IV Flush (Picc Line Flush) 8 ml IVPUSH PRN PRN PRN Reason: Protocol Vancomycin HCl (Vancomycin 1 Gm Premix -) 1 gm in 200 mls @ 133.333 mls/hr IVPB Q24H [facility]; Protocol Last Admin: 05/18/18 15:11 Dose: 133.333 mls/hr Insulin Aspart (Novolog Vial Sliding Scale -) 1 vial SQ ACHS [facility]; Protocol Last Admin: 05/19/18 11:46 Dose: 8 units Liraglutide (Victoza -) 1.8 mg SQ DAILY@0700 [facility] Last Admin: 05/19/18 07:07 Dose: 1.8 mg Metoprolol Succinate (Toprol Xl -) 100 mg PO DAILY [facility] Last Admin: 05/19/18 11:15 Dose: 100 mg Mupirocin (Bactroban 2% Cream -) 1 applic TP BID [facility] Last Admin: 05/19/18 11:15 Dose: 1 applic Nifedipine (Procardia Xl -) 60 mg PO DAILY [facility] Last Admin: 05/19/18 11:15 Dose: 60 mg Sodium Chloride (Sodium Chl 0.9% Irrigation -) 500 ml IRRIG TID [facility] Last Admin: 05/19/18 06:59 Dose: 500 ml - Objective Vital Signs: Vital Signs Temperature 98.2 F 05/19/18 06:00 Pulse Rate 81 05/19/18 06:00 Respiratory Rate 20 05/18/18 21:00 Blood Pressure 151/88 05/19/18 06:00 O2 Sat by Pulse Oximetry (%) 96 05/19/18 11:06 Constitutional: Yes: No Distress Eyes: Yes: Conjunctiva Clear Cardiovascular: Yes: Regular Rate and Rhythm, S1, S2 Respiratory: Yes: CTA Bilaterally Gastrointestinal: Yes: Normal Bowel Sounds, Soft, Abdomen, Obese. No: Tenderness Extremities: Yes: Other (R foot with residual swelling No wound drainage) Labs: CBC, BMP 05/19/18 06:20 05/19/18 06:20 Assessment/Plan Cellulitis R foot S/P I&D R foot abscess + wound c/s MRSA Diabetes mellitus Pt does not wish to have tunnelled catheter/ IV Vancomycin as outpatient Advise oral therapy with clindamycin 450mg po q8h x 10d with probiotic Patient advised to follow up in wound care center next Tuesday Will follow up with me as outpatient
[2018-05-19 14:37] VITALS: BP 161/102; PULSE 85; TEMP 98.1
--- NOTE | 2018-05-19 15:10 | PN ---
Teaching Attending Note Name of Resident: Ariela Rust ATTENDING PHYSICIAN STATEMENT I saw and evaluated the patient. I reviewed the resident's note and discussed the case with the resident. I agree with the resident's findings and plan as documented. SUBJECTIVE: Patient has no complaints. OBJECTIVE: Vital Signs Period Temp Pulse Resp BP Sys/Freitas Pulse Ox Last 24 Hr 98.1 F-98.8 F 76-85 20-20 151-161/86-102 95-99 HEART: S1S2, RRR LUNGS: Clear ABDOMEN: Obese, soft, non-tender, non-distended, normal BS EXTREMITIES: Trace edema RLE Laboratory Results - last 24 hr 05/18/18 05/18/18 05/19/18 16:56 21:23 06:20 WBC RBC Hgb Hct MCV MCH MCHC RDW Plt Count MPV Sodium 141 Potassium 4.9 Chloride 108 H Carbon Dioxide 27 Anion Gap 6 L BUN 19 H Creatinine 1.6 H Creat Clearance w eGFR 46.17 POC Glucometer 300 306 Random Glucose 231 H Calcium 8.6 05/19/18 05/19/18 05/19/18 06:20 06:52 11:34 WBC 5.4 RBC 3.81 L Hgb 10.1 L Hct 31.0 L MCV 81.3 MCH 26.5 MCHC 32.6 RDW 13.8 Plt Count 515 H MPV 6.9 L Sodium Potassium Chloride Carbon Dioxide Anion Gap BUN Creatinine Creat Clearance w eGFR POC Glucometer 246 220 Random Glucose Calcium Current Medications Generic Name Dose Route Start Last Admin Trade Name Freq PRN Reason Stop Dose Admin Atorvastatin Calcium 80 mg 05/17/18 22:00 05/18/18 21:25 Lipitor - PO 80 mg HS [facility] Administration Docusate Sodium 100 mg 05/17/18 14:00 05/19/18 06:58 Colace - PO 100 mg TID [facility] Administration Heparin Sodium (Porcine) 5,000 unit 05/16/18 22:15 05/19/18 06:59 Heparin - SQ Not Given TID [facility] IV Flush 8 ml 05/19/18 13:25 Picc Line Flush IVPUSH PRN PRN Protocol Vancomycin HCl 1 gm in 200 mls @ 133.333 mls/hr 05/17/18 15:30 05/18/18 15:11 Vancomycin 1 Gm Premix - IVPB 133.333 mls/hr Q24H [facility] Administration Protocol Insulin Aspart 1 vial 05/17/18 07:00 05/19/18 11:46 Novolog Vial Sliding Scale - SQ 8 units ACHS [facility] Administration Protocol Liraglutide 1.8 mg 05/19/18 07:00 05/19/18 07:07 Victoza - SQ 1.8 mg DAILY@0700 [facility] Administration Metoprolol Succinate 100 mg 05/17/18 10:00 05/19/18 11:15 Toprol Xl - PO 100 mg DAILY [facility] Administration Mupirocin 1 applic 05/17/18 10:00 05/19/18 11:15 Bactroban 2% Cream - TP 1 applic BID [facility] Administration Nifedipine 60 mg 05/17/18 10:00 05/19/18 11:15 Procardia Xl - PO 60 mg DAILY [facility] Administration Sodium Chloride 500 ml 05/17/18 14:19 05/19/18 14:52 Sodium Chl 0.9% Irrigation - IRRIG Not Given TID [facility] ASSESSMENT AND PLAN: This is a 47 year old man with a history of DM, HTN, hyperlipidemia, MRSA abscess of right foot who was sent to the ED from wound clinic for worsening of the foot wound. 1. Right foot wound, non-healing, with cellulitis and osteomyelitis - s/p incision and drainage of right foot abscess 05/09 (+) MRSA - MRI of right foot shows bone marrow edema of 2nd/3rd metatarsal heads, 2nd proximal phalanx, base of 3rd proximal phalanx - Refusing tunneled catheter for outpatient IV antibiotics - Discharge on Clindamycin PO x 10 days 2. Acute kidney injury - Improved 3. Stage 3 CKD 4. Type 2 DM, uncontrolled - Continue Victoza 5. HTN - Continue Procardia XL, Toprol XL 6. Hyperlipidemia - Continue Lipitor 7. Morbid obesity with BMI 41.8
[2018-05-19] MEDS: VANCOMYCIN 1 GM PREMIX - 1 GM/200 ML BAG IVPB SCH (15:14)
--- NOTE | 2018-05-19 15:49 | DS ---
Physical Exam: SUBJECTIVE: Patient is a 47 y/o male with a history of R foot MRSA infection, DM, and HTN who is here for R foot ulcer. Patient denies fever, chills, has no complaints for today. No acute events overnight. OBJECTIVE: Vital Signs Period Temp Pulse Resp BP Sys/Freitas Pulse Ox Last 24 Hr 98.1 F-98.8 F 76-85 20-20 151-161/86-102 95-99 PHYSICAL EXAM GENERAL: The patient is awake, alert, and fully oriented, in no acute distress. NECK: Trachea midline, full range of motion, supple. LUNGS: Breath sounds equal, clear to auscultation bilaterally, HEART: Regular rate and rhythm, S1, S2 ABDOMEN: Soft, nontender, nondistended, normoactive bowel sounds, EXTREMITIES: warm, well-perfused, no edema. PSYCH: Normal mood, normal affect. SKIN: 2 x 1 wound on dorsum of R foot, stiches in wound, surrounding area eythematous and edematous, patient able to move toes and sensation is intact LABS Laboratory Results - last 24 hr 05/18/18 05/18/18 05/19/18 16:56 21:23 06:20 WBC RBC Hgb Hct MCV MCH MCHC RDW Plt Count MPV Sodium 141 Potassium 4.9 Chloride 108 H Carbon Dioxide 27 Anion Gap 6 L BUN 19 H Creatinine 1.6 H Creat Clearance w eGFR 46.17 POC Glucometer 300 306 Random Glucose 231 H Calcium 8.6 05/19/18 05/19/18 05/19/18 06:20 06:52 11:34 WBC 5.4 RBC 3.81 L Hgb 10.1 L Hct 31.0 L MCV 81.3 MCH 26.5 MCHC 32.6 RDW 13.8 Plt Count 515 H MPV 6.9 L Sodium Potassium Chloride Carbon Dioxide Anion Gap BUN Creatinine Creat Clearance w eGFR POC Glucometer 246 220 Random Glucose Calcium HOSPITAL COURSE: Date of Admission:05/16/18 Patient is a 47 y/o male with a history of R foot MRSA infection, DM, and HTN who is here for R foot ulcer. patient began on Vancomycin for a history of MRSA in his foot. Infectious disease, Dr. Chowdary, evaluated the patient and continued his treatment. Podiatry, Dr. Palomino evaluated the patient and ordered a MRI. MRI: increased tissue swelling, bone marrow edema of second and third metatarsal heads, cannot rule out osteomyelitis Foot xray: soft tissue swelling and small amounts of soft tissue gas at the MTP joints Duplex Scan lower extremity: mild atherosclerotic disease with no evidence of occlusion or hemodynamiclly significant stenosis Blood cultures negative. Dr. Chowdary discussed with patient the need for a PICC line and IV antibiotics but he refused. he will continue of Clindamycin as an outpatient and follow up with Dr. Chowdary. Patient will follow up with Dr. Rhoades as an outpatient at wound care for managment of his ulcer. Patient stable and discharged home. patient presented with slight DANILO on CKD, with fluids he returned to baseline. Patient monitored by Dr. Graham who will follow up with him as an outpatient. Date of Discharge: 05/19/18 Minutes to complete discharge: 40 Discharge Summary Reason For Visit: DAIBETIC FOOT ULCER Current Active Problems Diabetic foot infection (Chronic) Condition: Improved - Instructions Diet, Activity, Other Instructions: You came to the hospital because of an infection in your right foot. An infectious disease doctor, Dr. Chowdary, saw you and determined you can go home on Clindamycin 450 mg three times a day by mouth for 10 days. You should take probiotics with this medication. You should follow up with Dr. Chowdary in one week. You were monitored by vascular surgery, Dr. Salas, and podiatry, Dr. Milian, and you can can continue to follow with wound clinic. You have an appointment with Dr. Milian at wound clinic for Tuesday at 10:30 am. You can continue to take your home medications as prescribed. You should follow up with your primary care physician within one week. Please return to the Emergency Department if you have any worsening of symptoms , headache, fever, chills, nausea, chest pain, or shortness of breath. Referrals: Boby Chowdary MD [Staff Physician] - Jose Carlos Milian MD [Staff Physician] - Joseline Naidu MD [Primary Care Provider] - Disposition: HOME - Home Medications Comprehensive Discharge Medication List: Ambulatory Orders Metoprolol Succinate [Toprol XL -] 100 mg PO DAILY 10/25/14 Atorvastatin Calcium 80 mg PO HS 05/05/18 Hydrochlorothiazide [Hctz -] 25 mg PO DAILY 05/05/18 Nifedipine [Adalat cc] 60 mg PO DAILY 05/05/18 Olmesartan Medoxomil 40 mg PO DAILY 05/05/18 Insulin Lispro [Humalog] 70 unit SQ BID 05/17/18 Liraglutide [Victoza -] 1.8 mg SQ DAILY 05/17/18 Metformin HCl [Metformin HCl ER] 1,000 mg PO DAILY 05/17/18 Clindamycin [Cleocin -] 450 mg PO Q6H #270 capsule 05/19/18 This patient is new to me today: No Emergency Visit: No Critical Care patient: No - Discharge Referral Referred to [facility] No
--- NOTE | 2018-05-19 16:07 | PN ---
Progress Note, Physician History of Present Illness: Pt seen and examined at bedside. He is awake and alert. He denies dysuria or hematuria. - Current Medication List Current Medications: Active Medications Atorvastatin Calcium (Lipitor -) 80 mg PO HS [facility] Last Admin: 05/18/18 21:25 Dose: 80 mg Docusate Sodium (Colace -) 100 mg PO TID [facility] Last Admin: 05/19/18 15:14 Dose: 100 mg Heparin Sodium (Porcine) (Heparin -) 5,000 unit SQ TID [facility] Last Admin: 05/19/18 15:14 Dose: 5,000 unit IV Flush (Picc Line Flush) 8 ml IVPUSH PRN PRN PRN Reason: Protocol Vancomycin HCl (Vancomycin 1 Gm Premix -) 1 gm in 200 mls @ 133.333 mls/hr IVPB Q24H [facility]; Protocol Last Admin: 05/19/18 15:14 Dose: 133.333 mls/hr Insulin Aspart (Novolog Vial Sliding Scale -) 1 vial SQ ACHS [facility]; Protocol Last Admin: 05/19/18 11:46 Dose: 8 units Liraglutide (Victoza -) 1.8 mg SQ DAILY@0700 [facility] Last Admin: 05/19/18 07:07 Dose: 1.8 mg Metoprolol Succinate (Toprol Xl -) 100 mg PO DAILY [facility] Last Admin: 05/19/18 11:15 Dose: 100 mg Mupirocin (Bactroban 2% Cream -) 1 applic TP BID [facility] Last Admin: 05/19/18 11:15 Dose: 1 applic Nifedipine (Procardia Xl -) 60 mg PO DAILY [facility] Last Admin: 05/19/18 11:15 Dose: 60 mg Sodium Chloride (Sodium Chl 0.9% Irrigation -) 500 ml IRRIG TID [facility] Last Admin: 05/19/18 14:52 Dose: Not Given - Objective Vital Signs: Vital Signs Temperature 98.1 F 05/19/18 14:36 Pulse Rate 85 05/19/18 14:36 Respiratory Rate 20 05/19/18 14:36 Blood Pressure 161/102 05/19/18 14:36 O2 Sat by Pulse Oximetry (%) 96 05/19/18 14:39 Constitutional: Yes: Calm Eyes: Yes: Conjunctiva Clear HENT: Yes: Atraumatic Neck: Yes: Supple Cardiovascular: Yes: S1, S2 Respiratory: Yes: CTA Bilaterally Gastrointestinal: Yes: Soft Genitourinary: Yes: WNL Musculoskeletal: Yes: WNL Edema: Yes Edema: LLE: Trace, RLE: Trace Integumentary: Yes: Erythema Wound/Incision: Yes: Dressing Dry and Intact Neurological: Yes: Oriented Psychiatric: Yes: Oriented Labs: CBC, BMP 05/19/18 06:20 05/19/18 06:20 Problem List - Problems (1) Diabetic foot infection Code(s): E11.628 - TYPE 2 DIABETES MELLITUS WITH OTHER SKIN COMPLICATIONS; L08.9 - LOCAL INFECTION OF THE SKIN AND SUBCUTANEOUS TISSUE, UNSP (2) Blister of fifth toe of left foot Code(s): S90.425A - BLISTER (NONTHERMAL), LEFT LESSER TOE(S), INITIAL ENCOUNTER (3) CKD (chronic kidney disease) Code(s): N18.9 - CHRONIC KIDNEY DISEASE, UNSPECIFIED Assessment/Plan Current Medications Generic Name Dose Route Start Last Admin Trade Name Freq PRN Reason Stop Dose Admin Atorvastatin Calcium 80 mg 05/17/18 22:00 05/18/18 21:25 Lipitor - PO 80 mg HS NICKI Administration Docusate Sodium 100 mg 05/17/18 14:00 05/19/18 15:14 Colace - PO 100 mg TID NICKI Administration Heparin Sodium (Porcine) 5,000 unit 05/16/18 22:15 05/19/18 15:14 Heparin - SQ 5,000 unit TID NICKI Administration IV Flush 8 ml 05/19/18 13:25 Picc Line Flush IVPUSH PRN PRN Protocol Vancomycin HCl 1 gm in 200 mls @ 133.333 mls/hr 05/17/18 15:30 05/19/18 15:14 Vancomycin 1 Gm Premix - IVPB 133.333 mls/hr Q24H NICKI Administration Protocol Insulin Aspart 1 vial 05/17/18 07:00 05/19/18 11:46 Novolog Vial Sliding Scale - SQ 8 units ACHS NICKI Administration Protocol Liraglutide 1.8 mg 05/19/18 07:00 05/19/18 07:07 Victoza - SQ 1.8 mg DAILY@0700 NICKI Administration Metoprolol Succinate 100 mg 05/17/18 10:00 05/19/18 11:15 Toprol Xl - PO 100 mg DAILY INCKI Administration Mupirocin 1 applic 05/17/18 10:00 05/19/18 11:15 Bactroban 2% Cream - TP 1 applic BID NICKI Administration Nifedipine 60 mg 05/17/18 10:00 05/19/18 11:15 Procardia Xl - PO 60 mg DAILY NICKI Administration Sodium Chloride 500 ml 05/17/18 14:19 05/19/18 14:52 Sodium Chl 0.9% Irrigation - IRRIG Not Given TID NICKI Impression 1. CKD 2. proteinuria 3. microscopic hematuria 4. HTN 5. DM 6. diabetic retinopathy 7. cataracts 8. cellulitis/foot ulcer secondary to chemical spill 9. CAD 10. obesity Plan - renal function is stable - will see pt in office for workup - abx per ID - wound care - discussed plan with pt - will follow Dr Graham
== END 2018-05-19 18:38 | disposition home or self-care (01) | DRG 638 ==
LOC: JER 12:10 → JERBED 23:00 → J6S 05-17 20:05
PROVIDERS: ADMIT Internal Medicine; ATTEND Internal Medicine
DX: E11.621 Type 2 diabetes mellitus with foot ulcer (principal); Z68.41 Body mass index [BMI] 40.0-44.9, adult; L03.115 Cellulitis of right lower limb; L97.511 Non-pressure chronic ulcer of other part of right foot limited to breakdown of skin; E66.01 Morbid (severe) obesity due to excess calories; I12.9 Hypertensive chronic kidney disease with stage 1 through stage 4 chronic kidney disease, or unspecified chronic kidney disease; E11.22 Type 2 diabetes mellitus with diabetic chronic kidney disease; N18.3 Chronic kidney disease, stage 3 (moderate); Z79.84 Long term (current) use of oral hypoglycemic drugs; Z79.4 Long term (current) use of insulin; E11.65 Type 2 diabetes mellitus with hyperglycemia; E11.319 Type 2 diabetes mellitus with unspecified diabetic retinopathy without macular edema; R31.29 Other microscopic hematuria; I25.10 Atherosclerotic heart disease of native coronary artery without angina pectoris; E78.5 Hyperlipidemia, unspecified; H26.9 Unspecified cataract
CPT/HCPCS: 36415; 73630-TC-RT-FY; 73718-TC; 80048; 80053; 81003; 81015; 82436; 82570; 82962; 83735; 84100; 84133; 84300; 85025; 85027; 85651; 86140; 87040; 87070; 87205; 93005; 93010; 93926-TC; 94660; 99285-25; G0463-25; J1644; J7030

== ENCOUNTER 2020-04-29 18:14 | Emergency (ER) | payer BC, OTHER ==
--- NOTE | 2020-04-29 18:19 | PDOC ---
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
[2020-04-29 18:34] VITALS: BP 145/92; PULSE 85; TEMP 97.8; BMI 27.9
--- NOTE | 2020-04-29 18:57 | PDOC ---
History of Present Illness - General Chief Complaint: Injury Stated Complaint: FALL Time Seen by Provider: 04/29/20 18:17 - History of Present Illness Initial Comments: 04/29/20 18:54 49-year-old male with a past medical history of hypertension diabetes and dyslipidemiaPresents for evaluation after a fall. Patient states he slipped on a wet floor landing on his right side injuring his right shoulder which has a pre-existing rotator cuff tear he is scheduled for surgery in the near future for repair, right hip and lower back. No loss of bowel bladder function no saddle paresthesias no radicular symptoms. Past History - Medical History Allergies/Adverse Reactions: Allergies Allergy/AdvReac Type Severity Reaction Status Date / Time pineapple Allergy Severe Swelling Verified 04/29/20 18:21 Home Medications: Ambulatory Orders Metoprolol Succinate [Toprol XL -] 100 mg PO DAILY 10/25/14 Atorvastatin Calcium 80 mg PO HS 05/05/18 Hydrochlorothiazide [Hctz -] 25 mg PO DAILY 05/05/18 Nifedipine [Adalat cc] 60 mg PO DAILY 05/05/18 Olmesartan Medoxomil 40 mg PO DAILY 05/05/18 Insulin Lispro [Humalog] 70 unit SQ BID 05/17/18 Liraglutide [Victoza -] 1.8 mg SQ DAILY 05/17/18 Dapagliflozin/Metformin HCl [Xigduo Xr 5 mg-500 mg Tablet] 1 tab PO DAILY 09/26/18 Cyclobenzaprine HCl [Flexeril 10 mg] 10 mg PO HS PRN #10 tablet 04/29/20 COPD: No Diabetes: Yes (insulin and po) HTN: Yes Hypercholesterolemia: Yes - Surgical History Appendectomy: Yes - Immunization History Immunization Up to Date: (flu ) - Psycho-Social/Smoking History Smoking History: Never smoked Have you smoked in the past 12 months: No Information on smoking cessation initiated: No - Substance Abuse Hx (Audit-C & DAST Scrn) How often the patient has a drink containing alcohol: Never Score: In Men: 4 or > Positive; In Women: 3 or > Positive: 0 Screen Result (Pos requires Nsg. Audit-10AR): Negative In the last yr the pt used illegal drug/Rx for NonMed reason: No Score: Yes response is considered Positive: 0 Screen Result (Positive result requires Nsg. DAST-10): Negative Review of Systems - Review of Systems Musculoskeletal: Yes: Back Pain, Joint Pain *Physical Exam - Vital Signs Last Vital Signs Temp Pulse Resp BP Pulse Ox 97.8 F 85 19 145/92 100 04/29/20 18:17 04/29/20 18:17 04/29/20 18:17 04/29/20 18:17 04/29/20 18:17 - Physical Exam 04/29/20 18:55 GENERAL: The patient is awake, alert, and fully oriented, in no acute distress. HEAD: Normal with no signs of trauma. EYES: sclera anicteric, conjunctiva clear. ENT: Ears normal tympanic membranes normal oropharynx clear uvula midline NECK: Normal range of motion; Cervical spine skin color and temperature normal range of motion is slightly limited. There is no midline tenderness. Mild bilateral paracervical musculature spasm and tenderness. 5 out of 5 strength bilateral upper extremities without gross sensorimotor deficits neurovascular intact. LUNGS: Breath sounds equal, clear to auscultation bilaterally. No wheezes, and no crackles. HEART: S1 and S2 without murmur, rub or gallop. ABDOMEN: Soft, nontender, normoactive bowel sounds. No guarding, no rebound. No masses. EXTREMITIES: Normal range of motion, no edema. No clubbing or cyanosis. No cords, erythema, or tenderness Lumbar spine skin color temperature normal range of motion is slightly decreased. No midline tenderness. Moderate bilateral paralumbar musculature spasm and tenderness 5 out of 5 strength bilateral lower extremities without gross sensorimotor deficits thighs and calves are soft and nontender neurovascular intact NEUROLOGICAL: Cranial nerves II through XII grossly intact. PSYCH: Normal mood, normal affect. SKIN: Warm, Dry, normal turgor, no rashes or lesions noted. General Appearance: Yes: Nourished, Appropriately Dressed. No: Apparent Distress HEENT: positive: Symmetrical Medical Decision Making - Medical Decision Making 04/29/20 18:56 Decreased strength in the right shoulder about 3 out of 5 with supraspinatus isolation. Mild palpable right and left-sided trapezial spasm no midline tenderness paralumbar musculature spasm without midline tenderness no gross sensorimotor deficits on examination. Discussed use of Flexeril patient is on board 1 tablet before bed will follow-up with his orthopedic surgeon who is handling his other cases. I have reviewed the pathophysiology with the patient. They are in agreement with the treatment plan all questions were answered to their satisfaction. Understanding for follow-up without fail was also conveyed to the patient. Again they are in agreement. Discharge - Discharge Information Problems reviewed: Yes Clinical Impression/Diagnosis: Fall, Cervical strain, Contusion of hip, right, Lumbar strain, Right shoulder strain Condition: Stable Disposition: HOME - Admission No - Additional Discharge Information Prescriptions: Cyclobenzaprine HCl [Flexeril 10 mg] 10 mg PO HS PRN #10 tablet PRN Reason: Muscle Spasms - Follow up/Referral Referrals: Casper Teresa MD [Staff Physician] - - Patient Discharge Instructions Additional Instructions: Please take the Flexeril as directed will make you sleepy 1 tablet before bed. Without fail follow-up with your orthopedic surgeon in 1 to 2 days for further evaluation and treatment options and return to the emergency room should symptoms worsen. - Post Discharge Activity Work/Back to School Note: Back to Work
== END 2020-04-29 18:58 | disposition home or self-care (01) ==
LOC: JERFT 18:14
DX: S16.1XXA Strain of muscle, fascia and tendon at neck level, initial encounter (principal); S39.012A Strain of muscle, fascia and tendon of lower back, initial encounter; S46.911A Strain of unspecified muscle, fascia and tendon at shoulder and upper arm level, right arm, initial encounter; S70.01XA Contusion of right hip, initial encounter; W01.0XXA Fall on same level from slipping, tripping and stumbling without subsequent striking against object, initial encounter
CPT/HCPCS: 99283-25

== ENCOUNTER 2020-12-18 23:54 | Emergency (ER) | payer BC, OTHER ==
[2020-12-19 00:36] VITALS: BP 135/70; PULSE 77; TEMP 98.9; BMI 29.1
== END 2020-12-19 02:30 | disposition home or self-care (01) ==
LOC: JER 23:54
DX: K59.00 Constipation, unspecified (principal)
CPT/HCPCS: 99281-25

== ENCOUNTER 2023-08-04 06:31 | Day surgery (SDC) | payer OTHER ==
[2023-07-29 13:28] VITALS: BMI 32.3
[2023-08-04] MEDS ORDERED: EPINEPHrine 1:1,000 1,000 MCG/ML ML ONE (07:27)
[2023-08-04] MEDS ORDERED: MIDAZOLAM HCL 2 MG/2 ML SINGLE DOSE VIAL ONE (07:28)
[2023-08-04] MEDS ORDERED: SUCCINYLCHOLINE CHLORIDE 200 MG/10 ML SYRINGE ONE (07:28)
[2023-08-04] MEDS ORDERED: PROPOFOL 20 ML ONE ×3 (07:28→09:02)
[2023-08-04] MEDS ORDERED: DEXAMETHASONE SOD PHOSPHATE/PF 10 MG/ML SDV ONE (07:34)
[2023-08-04] MEDS ORDERED: ROPIVACAINE HCL 0.5% 30ML VIAL ONE (07:34)
[2023-08-04] MEDS ORDERED: ACETAMINOPHEN 1000 MG/100 ML BAG IVPB ONE (09:55)
[2023-08-04] MEDS ORDERED: LACTATED RINGERS SOLUTION 1,000 ML IV SCH (10:00)
[2023-08-04] MEDS ORDERED: ACETAMINOPHEN INJECTION 100 ML IVPB ONE (10:09)
[2023-08-04] MEDS ORDERED: PROPOFOL 60 ML ONE (10:29)
[2023-08-04 10:55] VITALS: RESP 18; TEMP 97.6
[2023-08-04 11:35] VITALS: BP 139/79; PULSE 72
== END 2023-08-04 11:45 | disposition home or self-care (01) ==
LOC: FASU 06:31
PROVIDERS: ATTEND Orthopaedic Surgery
PROC: 0LS34ZZ Reposition Right Upper Arm Tendon, Percutaneous Endoscopic Approach (ICD-10-PCS; 2023-08-04)
PROC: 0RHJ44Z Insertion of Internal Fixation Device into Right Shoulder Joint, Percutaneous Endoscopic Approach (ICD-10-PCS; 2023-08-04)
PROC: 0LS34ZZ Reposition Right Upper Arm Tendon, Percutaneous Endoscopic Approach (ICD-10-PCS; 2023-08-04)
PROC: 0RHJ44Z Insertion of Internal Fixation Device into Right Shoulder Joint, Percutaneous Endoscopic Approach (ICD-10-PCS; 2023-08-04)
PROC: 0LM14ZZ Reattachment of Right Shoulder Tendon, Percutaneous Endoscopic Approach (ICD-10-PCS; 2023-08-04)
PROC: 0RNJ4ZZ Release Right Shoulder Joint, Percutaneous Endoscopic Approach (ICD-10-PCS; 2023-08-04)
PROC: 0LM14ZZ Reattachment of Right Shoulder Tendon, Percutaneous Endoscopic Approach (ICD-10-PCS; principal; 2023-08-04 08:47)
DX: M75.121 Complete rotator cuff tear or rupture of right shoulder, not specified as traumatic (principal); M75.01 Adhesive capsulitis of right shoulder; M75.41 Impingement syndrome of right shoulder; M19.011 Primary osteoarthritis, right shoulder; S43.431A Superior glenoid labrum lesion of right shoulder, initial encounter; S46.121A Laceration of muscle, fascia and tendon of long head of biceps, right arm, initial encounter; X58.XXXA Exposure to other specified factors, initial encounter; Y92.9 Unspecified place or not applicable; Y93.9 Activity, unspecified
CPT/HCPCS: 29823; 29824; 29825; 29826; 29827; C1713; 82962; 94760